=== PATIENT | female | born 1965 | race Caucasian/White ===

== ENCOUNTER → 2017-01-03 | Outpatient (CLI) | payer OTHER ==
[~2017-01-03] MED LIST: ACET65TA OR; ACTO30TA OR; ALLE25CA OR; AMOXICILLIN OR; ASPI325T PO; AVEL1TAB3 PO; CLARITIN D OR; CYMB1CAP5 PO; FIBE500T5 PO; GLIM2TAB PO; IBUPOTC PO; INSULANT SC; IPRASOL4 NEB; LANTUS SC; LEVA500T OR; LEVO137T2 PO; LEVO500T3 PO; LISI-538 PO; METF-415 PO; METFORMIN; NASONEX; NEXIUM OR; NICO21PAT TD; PRED20TA PO; [UNRECOGNIZED DRUG - OTHER]
--- NOTE | 2017-01-03 14:19 | REPMRS ---
Patient History The patient states she has not had a clinical breast exam in over a year. No known family history of cancer. Digital Mammo Screening Bilat: January 03, 2017 - Exam #: [id number] Bilateral CC and MLO view(s) were taken. Technologist: Natalie Flores, Technologist Prior study comparison: July 23, 2008, bilateral screening mammogram, performed at [facility]. FINDINGS: There are scattered fibroglandular densities. There has been no change in the appearance of the mammogram from the prior studies. There is a mild amount of residual fibroglandular tissue which is fairly symmetric. There is no interval development of dominant mass, architectural distortion, or clustered microcalcification suggestive of malignancy. ASSESSMENT: BI-RADS/ACR category 1 mammogram. Negative. Recommendation Routine screening mammogram in 1 year (for women over age 40). This mammogram was interpreted with the aid of an FDA-approved computer-aided dectection system. Electronically Signed By: Berlin Gutierrez MD 01/03/17 [id number]
--- NOTE | 2017-01-04 00:32 | REP ---
Clinical: Pelvic pain. Technique: Transabdominal pelvic ultrasound followed by transvaginal examination for better evaluation of the endometrium and adnexa with color Doppler evaluation. Findings: The patient is noted to be status post hysterectomy and left oophorectomy. No pelvic fluid or mass lesion identified. Bladder is normal and currently measures 10.2 x 9.7 x 8.1 cm. Right ovary is normal and measures 2.8 x 1.3 x 1.4 cm; RI 0.42. No pelvic fluid or adnexal mass lesion. Impression: Normal pelvic ultrasound. Evidence for prior left oophorectomy and hysterectomy. Signed by Christian Nogueira MD 01/04/2017 12:23 A
== END ==
LOC: M RAD 12:21
PROVIDERS: ATTEND Specialist
DX: R10.2 Pelvic and perineal pain (principal); Z12.39 Encounter for other screening for malignant neoplasm of breast

== ENCOUNTER → 2017-11-17 | Outpatient (CLI) | payer OTHER | LOC: M ADAMS 11:18 | DX: R06.02 Shortness of breath (principal); J20.9 Acute bronchitis, unspecified | CPT/HCPCS: 71046 ==

== ENCOUNTER 2017-11-18 15:25 | Inpatient (IN) | payer OTHER ==
[2017-11-18 16:01] LABS: BASO % 0.1 % (0.0-1.0); HEMATOCRIT 49.9 % (36.0-47.0); HEMOGLOBIN 16.6 g/dl (12.0-15.5); IMMATURE GRANULOCYTE % 0.4 % (0-3.0); LYMPH % 9.7 % (24.0-44.0); MEAN CORPUSCULAR HEMOGLOBIN 29.6 pg (27.0-33.0); MEAN CORPUSCULAR HGB CONC 33.3 g/dl (32.0-36.5); MEAN CORPUSCULAR VOLUME 89.1 fl (80.0-96.0); MONO # 0.4 10^3/uL (0.0-0.8); MONO % 4.1 % (0.0-5.0); NEUTROPHILS # 8.9 10^3/uL (1.8-7.7); NEUTROPHILS % 85.7 % (36.0-66.0); PLATELET COUNT, AUTOMATED 255 10^3/uL (150-450); RED CELL DISTRIBUTION WIDTH 13.3 % (11.5-14.5); WHITE BLOOD COUNT 10.4 10^3/uL (4.0-10.0)
[2017-11-18 16:12] LABS: INR 0.88
[2017-11-18 16:29] LABS: ALBUMIN 3.8 GM/DL (3.2-5.2); ALKALINE PHOSPHATASE 64 U/L (45-117); ALT/SGPT 21 U/L (12-78); ANION GAP 9 MEQ/L (8-16); AST/SGOT 11 U/L (7-37); BILIRUBIN,DIRECT 0.1 MG/DL (0.0-0.2); BILIRUBIN,TOTAL 0.3 MG/DL (0.2-1.0); BLOOD UREA NITROGEN 17 MG/DL (7-18); CALCIUM LEVEL 8.9 MG/DL (8.5-10.1); CARBON DIOXIDE LEVEL 28 MEQ/L (21-32); CHLORIDE LEVEL 101 MEQ/L (98-107); CPK CREATINE PHOSPHOKINASE 47 U/L (26-192); CREATININE FOR GFR 0.68 MG/DL (0.55-1.30); GLOMERULAR FILTRATION RATE > 60.0 (>51); GLUCOSE, FASTING 269 MG/DL (70-100); LIPASE 115 U/L (73-393); POTASSIUM SERUM 4.5 MEQ/L (3.5-5.1); SODIUM LEVEL 138 MEQ/L (136-145); TOTAL PROTEIN 7.6 GM/DL (6.4-8.2); TROPONIN I < 0.02 NG/ML (< 0.10)
[2017-11-18 16:35] LABS: MB/CK RELATIVE INDEX 2.12 (< OR =4)
[2017-11-18 16:42] LABS: ABG BASE EXCESS 1.6 (-2.0-2.0); ABG HCO3 27.4 MEQ/L (22.0-26.0); ABG O2 SATURATION 92.9 % (95.0-99.0); ABG PARTIAL PRESSURE CO2 46.7 mmHg (35.0-45.0); ABG PARTIAL PRESSURE O2 65.6 mmHg (75.0-100.0); ABG STANDARD HCO3 25.7 MEQ/L (22.0-26.0); ABG TOTAL CO2 28.8 MEQ/L (22.0-29.0); ABG pH (ARTERIAL) 7.386 UNITS (7.350-7.450)
[2017-11-18] MEDS: IPRATROPIUM 0.5MG/ALBUTEROL 2.5MG INH SOL UD 3ML (DUONEB)(J7620) NEB ×3 (17:06)
[2017-11-18] MEDS: MOXIFLOXACIN HCL 400 MG in APPROPRIATE DILUENT 1 EA IV (18:01)
[2017-11-18] MEDS ORDERED: ISOVUE-370 76% 100ML VIAL (Q9967) As Ordered (19:02)
[2017-11-18] MEDS ORDERED: GLUCAGON FOR INJ 1 MG VIAL (J1610) SC (23:00)
[2017-11-18] MEDS ORDERED: DEXTROSE 50% 50 ML SYRINGE IV (23:00)
[2017-11-18] MEDS ORDERED: GLUCOSE 4 GM CHEW TABLET PO (23:00)
[2017-11-18] MEDS: HumaLOG INSULIN (NovoLOG) PER UNIT SC (23:37)
[2017-11-18] MEDS: methylPREDNISolone INJ 125 MG/2 ML VIAL (J2930) IV (23:49)
[2017-11-18] MEDS: NS 1,000 ML IV (23:49)
[2017-11-19 00:11] LABS: CK-MB VALUE MASS < 1.0 NG/ML (<3.6); CPK CREATINE PHOSPHOKINASE 41 U/L (26-192); MB/CK RELATIVE INDEX 2.43 (< OR =4); TROPONIN I < 0.02 NG/ML (< 0.10)
[2017-11-19 00:18] LABS: BEDSIDE GLUCOSE 190 MG/DL (70-105)
[2017-11-19] MEDS: HEPARIN SOD (PORCINE) 5000 UNITS/ML VIAL SC ×3 (05:23→20:32)
[2017-11-19] MEDS: methylPREDNISolone INJ 125 MG/2 ML VIAL (J2930) IV ×3 (05:23→17:46)
[2017-11-19 07:00] LABS: BASO % 0.1 % (0.0-1.0); HEMATOCRIT 47.6 % (36.0-47.0); IMMATURE GRANULOCYTE % 0.4 % (0-3.0); LYMPH # 0.6 10^3/uL (1.5-4.5); LYMPH % 8.2 % (24.0-44.0); MEAN CORPUSCULAR HEMOGLOBIN 30.4 pg (27.0-33.0); MEAN CORPUSCULAR HGB CONC 33.6 g/dl (32.0-36.5); MEAN CORPUSCULAR VOLUME 90.5 fl (80.0-96.0); MONO # 0.1 10^3/uL (0.0-0.8); MONO % 0.8 % (0.0-5.0); NEUTROPHILS # 6.7 10^3/uL (1.8-7.7); NEUTROPHILS % 90.5 % (36.0-66.0); PLATELET COUNT, AUTOMATED 242 10^3/uL (150-450); RED BLOOD COUNT 5.26 10^6/uL (4.00-5.40); RED CELL DISTRIBUTION WIDTH 13.4 % (11.5-14.5); WHITE BLOOD COUNT 7.4 10^3/uL (4.0-10.0)
[2017-11-19 07:24] LABS: CK-MB VALUE MASS < 1.0 NG/ML (<3.6); CPK CREATINE PHOSPHOKINASE 51 U/L (26-192); MB/CK RELATIVE INDEX 1.96 (< OR =4); TROPONIN I < 0.02 NG/ML (< 0.10)
[2017-11-19 07:26] LABS: BLOOD UREA NITROGEN 17 MG/DL (7-18); GLUCOSE, FASTING 247 MG/DL (70-100)
[2017-11-19 07:27] LABS: ALBUMIN 3.4 GM/DL (3.2-5.2); ALBUMIN/GLOBULIN RATIO 0.94 (1.00-1.93); ALKALINE PHOSPHATASE 60 U/L (45-117); ALT/SGPT 19 U/L (12-78); ANION GAP 6 MEQ/L (8-16); AST/SGOT 10 U/L (7-37); BILIRUBIN,TOTAL 0.3 MG/DL (0.2-1.0); CALCIUM LEVEL 8.7 MG/DL (8.5-10.1); CARBON DIOXIDE LEVEL 30 MEQ/L (21-32); CHLORIDE LEVEL 104 MEQ/L (98-107); GLOMERULAR FILTRATION RATE > 60.0 (>51); SODIUM LEVEL 140 MEQ/L (136-145)
[2017-11-19 07:29] LABS: POTASSIUM SERUM 5.4 MEQ/L (3.5-5.1)
[2017-11-19] MEDS: SOD POLYSTYRENE SULFONATE SUSP 15 GM/60 ML UD PO (08:20)
[2017-11-19] MEDS: HumaLOG INSULIN (NovoLOG) PER UNIT SC ×4 (08:20→20:28)
[2017-11-19] MEDS: LEVEMIR (INSULIN DETEMIR) 1 UNITS/0.01ML SC (08:21)
[2017-11-19] MEDS: NICOTINE 21MG/24HR 1 EA TRANSDERMAL TD (08:21)
[2017-11-19] MEDS: IPRATROPIUM 0.5MG/ALBUTEROL 2.5MG INH SOL UD 3ML (DUONEB)(J7620) NEB ×4 (08:30→21:27)
[2017-11-19] MEDS: BUDESONIDE 0.5 MG/2 ML INHALATION SUSPENSION INH ×2 (08:30→21:27)
[2017-11-19] MEDS ORDERED: cefTRIAXone SOD 1 GM in D5W MINI-BAG PLUS 50 ML IV (09:00)
[2017-11-19] MEDS: AZITHROMYCIN INJ 500 MG, VIAL MATE ADAPTER 1 EACH in D5W 250 ML IV (10:10)
[2017-11-19 11:37] LABS: BEDSIDE GLUCOSE 356 MG/DL (70-105)
[2017-11-19 15:59] LABS: CK-MB VALUE MASS 1.2 NG/ML (<3.6); CPK CREATINE PHOSPHOKINASE 60 U/L (26-192); TROPONIN I < 0.02 NG/ML (< 0.10)
[2017-11-19 16:36] LABS: BEDSIDE GLUCOSE 195 MG/DL (70-105)
[2017-11-19 20:14] LABS: BEDSIDE GLUCOSE 230 MG/DL (70-105)
[2017-11-20] MEDS: methylPREDNISolone INJ 125 MG/2 ML VIAL (J2930) IV (01:33)
[2017-11-20] MEDS ORDERED: methylPREDNISolone INJ 125 MG/2 ML VIAL (J2930) IV (02:00)
[2017-11-20] MEDS: HEPARIN SOD (PORCINE) 5000 UNITS/ML VIAL SC ×3 (05:37→20:18)
[2017-11-20 06:04] LABS: BEDSIDE GLUCOSE 172 MG/DL (70-105)
[2017-11-20 07:31] LABS: BASO % 0.2 % (0.0-1.0); HEMATOCRIT 47.4 % (36.0-47.0); HEMOGLOBIN 15.8 g/dl (12.0-15.5); IMMATURE GRANULOCYTE % 0.4 % (0-3.0); LYMPH # 0.9 10^3/uL (1.5-4.5); LYMPH % 9.6 % (24.0-44.0); MEAN CORPUSCULAR HGB CONC 33.3 g/dl (32.0-36.5); MEAN CORPUSCULAR VOLUME 89.9 fl (80.0-96.0); MONO # 0.4 10^3/uL (0.0-0.8); MONO % 4.4 % (0.0-5.0); NEUTROPHILS # 8.3 10^3/uL (1.8-7.7); NEUTROPHILS % 85.4 % (36.0-66.0); PLATELET COUNT, AUTOMATED 253 10^3/uL (150-450); RED BLOOD COUNT 5.27 10^6/uL (4.00-5.40); RED CELL DISTRIBUTION WIDTH 13.4 % (11.5-14.5); WHITE BLOOD COUNT 9.8 10^3/uL (4.0-10.0)
[2017-11-20] MEDS: BUDESONIDE 0.5 MG/2 ML INHALATION SUSPENSION INH ×2 (07:35→20:24)
[2017-11-20] MEDS: IPRATROPIUM 0.5MG/ALBUTEROL 2.5MG INH SOL UD 3ML (DUONEB)(J7620) NEB ×4 (07:35→20:24)
[2017-11-20 07:56] LABS: ALBUMIN 3.4 GM/DL (3.2-5.2); ALBUMIN/GLOBULIN RATIO 0.87 (1.00-1.93); ALKALINE PHOSPHATASE 53 U/L (45-117); ALT/SGPT 17 U/L (12-78); ANION GAP 4 MEQ/L (8-16); AST/SGOT 11 U/L (7-37); BILIRUBIN,TOTAL 0.3 MG/DL (0.2-1.0); BLOOD UREA NITROGEN 21 MG/DL (7-18); CALCIUM LEVEL 8.7 MG/DL (8.5-10.1); CARBON DIOXIDE LEVEL 32 MEQ/L (21-32); CHLORIDE LEVEL 102 MEQ/L (98-107); CREATININE FOR GFR 0.57 MG/DL (0.55-1.30); GLOMERULAR FILTRATION RATE > 60.0 (>51); GLUCOSE, FASTING 176 MG/DL (70-100); MAGNESIUM LEVEL 2.4 MG/DL (1.8-2.4); POTASSIUM SERUM 4.4 MEQ/L (3.5-5.1); SODIUM LEVEL 138 MEQ/L (136-145); TOTAL PROTEIN 7.3 GM/DL (6.4-8.2)
[2017-11-20] MEDS: HumaLOG INSULIN (NovoLOG) PER UNIT SC ×4 (08:09→20:18)
[2017-11-20] MEDS: LEVEMIR (INSULIN DETEMIR) 1 UNITS/0.01ML SC (08:09)
[2017-11-20] MEDS: NICOTINE 21MG/24HR 1 EA TRANSDERMAL TD (08:09)
[2017-11-20] MEDS: AZITHROMYCIN INJ 500 MG, VIAL MATE ADAPTER 1 EACH in D5W 250 ML IV (09:54)
[2017-11-20 11:38] LABS: BEDSIDE GLUCOSE 276 MG/DL (70-105)
[2017-11-20] MEDS: PREMARIN 0.9 MG PO (12:22)
[2017-11-20] MEDS: methylPREDNISolone INJ 40 MG/1 ML VIAL (J2920) IV (14:31)
[2017-11-20 16:37] LABS: BEDSIDE GLUCOSE 61 MG/DL (70-105)
[2017-11-20 20:04] LABS: BEDSIDE GLUCOSE 259 MG/DL (70-105)
[2017-11-20] MEDS: ACETAMINOPHEN TAB 650MG DOSE (2X325MG) PO (20:18)
[2017-11-21] MEDS: methylPREDNISolone INJ 40 MG/1 ML VIAL (J2920) IV (01:43)
[2017-11-21] MEDS: HEPARIN SOD (PORCINE) 5000 UNITS/ML VIAL SC (05:28)
[2017-11-21 06:22] LABS: BASO % 0.3 % (0.0-1.0); HEMATOCRIT 46.5 % (36.0-47.0); HEMOGLOBIN 15.2 g/dl (12.0-15.5); IMMATURE GRANULOCYTE % 0.5 % (0-3.0); LYMPH # 1.3 10^3/uL (1.5-4.5); LYMPH % 17.4 % (24.0-44.0); MEAN CORPUSCULAR HEMOGLOBIN 29.8 pg (27.0-33.0); MEAN CORPUSCULAR HGB CONC 32.7 g/dl (32.0-36.5); MEAN CORPUSCULAR VOLUME 91.2 fl (80.0-96.0); MONO # 0.4 10^3/uL (0.0-0.8); NEUTROPHILS # 5.7 10^3/uL (1.8-7.7); NEUTROPHILS % 76.8 % (36.0-66.0); PLATELET COUNT, AUTOMATED 248 10^3/uL (150-450); RED CELL DISTRIBUTION WIDTH 13.3 % (11.5-14.5); WHITE BLOOD COUNT 7.5 10^3/uL (4.0-10.0)
[2017-11-21 06:54] LABS: ALBUMIN 3.1 GM/DL (3.2-5.2); ALBUMIN/GLOBULIN RATIO 0.84 (1.00-1.93); ALKALINE PHOSPHATASE 47 U/L (45-117); ALT/SGPT 17 U/L (12-78); ANION GAP 4 MEQ/L (8-16); AST/SGOT 13 U/L (7-37); BILIRUBIN,TOTAL 0.3 MG/DL (0.2-1.0); BLOOD UREA NITROGEN 18 MG/DL (7-18); CALCIUM LEVEL 8.3 MG/DL (8.5-10.1); CARBON DIOXIDE LEVEL 35 MEQ/L (21-32); CHLORIDE LEVEL 103 MEQ/L (98-107); CREATININE FOR GFR 0.54 MG/DL (0.55-1.30); GLOMERULAR FILTRATION RATE > 60.0 (>51); GLUCOSE, FASTING 116 MG/DL (70-100); POTASSIUM SERUM 4.5 MEQ/L (3.5-5.1); SODIUM LEVEL 142 MEQ/L (136-145); TOTAL PROTEIN 6.8 GM/DL (6.4-8.2)
[2017-11-21] MEDS: IPRATROPIUM 0.5MG/ALBUTEROL 2.5MG INH SOL UD 3ML (DUONEB)(J7620) NEB (07:50)
[2017-11-21] MEDS: BUDESONIDE 0.5 MG/2 ML INHALATION SUSPENSION INH (07:50)
[2017-11-21] MEDS: LEVEMIR (INSULIN DETEMIR) 1 UNITS/0.01ML SC (08:16)
[2017-11-21] MEDS: PREMARIN 0.9 MG PO (08:16)
[2017-11-21] MEDS: HumaLOG INSULIN (NovoLOG) PER UNIT SC (08:16)
[2017-11-21] MEDS: NICOTINE 21MG/24HR 1 EA TRANSDERMAL TD (08:18)
[2017-11-21] MEDS: AZITHROMYCIN INJ 500 MG, VIAL MATE ADAPTER 1 EACH in D5W 250 ML IV (09:31)
== END 2017-11-21 11:40 | disposition home or self-care (01) | DRG 140 ==
LOC: M ED 15:25 → M ED INP 22:15 → M MSPAV 23:39
DX: J44.1 Chronic obstructive pulmonary disease with (acute) exacerbation (principal); E11.40 Type 2 diabetes mellitus with diabetic neuropathy, unspecified; E87.5 Hyperkalemia; D75.1 Secondary polycythemia; F17.210 Nicotine dependence, cigarettes, uncomplicated; K58.9 Irritable bowel syndrome, unspecified; I10 Essential (primary) hypertension; E86.0 Dehydration; E03.9 Hypothyroidism, unspecified; M79.7 Fibromyalgia; Z88.5 Allergy status to narcotic agent; Z88.8 Allergy status to other drugs, medicaments and biological substances; Z79.82 Long term (current) use of aspirin; R09.02 Hypoxemia; Z79.4 Long term (current) use of insulin; Z79.899 Other long term (current) drug therapy; Z91.14 Patient's other noncompliance with medication regimen

== ENCOUNTER 2017-11-22 17:23 | Emergency (ER) | payer OTHER ==
[2017-11-22 18:06] LABS: BASO % 0.2 % (0.0-1.0); EOS % 0.1 % (0.0-3.0); HEMATOCRIT 51.1 % (36.0-47.0); HEMOGLOBIN 17.2 g/dl (12.0-15.5); IMMATURE GRANULOCYTE % 0.5 % (0-3.0); LYMPH % 8.6 % (24.0-44.0); MEAN CORPUSCULAR HEMOGLOBIN 30.2 pg (27.0-33.0); MEAN CORPUSCULAR HGB CONC 33.7 g/dl (32.0-36.5); MEAN CORPUSCULAR VOLUME 89.6 fl (80.0-96.0); MONO # 0.5 10^3/uL (0.0-0.8); MONO % 4.2 % (0.0-5.0); NEUTROPHILS # 9.7 10^3/uL (1.8-7.7); NEUTROPHILS % 86.4 % (36.0-66.0); PLATELET COUNT, AUTOMATED 254 10^3/uL (150-450); RED CELL DISTRIBUTION WIDTH 13.1 % (11.5-14.5); WHITE BLOOD COUNT 11.2 10^3/uL (4.0-10.0)
[2017-11-22 18:26] LABS: ALBUMIN 3.3 GM/DL (3.2-5.2); ALBUMIN/GLOBULIN RATIO 0.87 (1.00-1.93); ALKALINE PHOSPHATASE 55 U/L (45-117); ALT/SGPT 23 U/L (12-78); ANION GAP 2 MEQ/L (8-16); AST/SGOT 17 U/L (7-37); BILIRUBIN,DIRECT 0.1 MG/DL (0.0-0.2); BILIRUBIN,TOTAL 0.5 MG/DL (0.2-1.0); BLOOD UREA NITROGEN 17 MG/DL (7-18); CARBON DIOXIDE LEVEL 36 MEQ/L (21-32); CHLORIDE LEVEL 99 MEQ/L (98-107); CREATININE FOR GFR 0.76 MG/DL (0.55-1.30); GLOMERULAR FILTRATION RATE > 60.0 (>51); GLUCOSE, FASTING 278 MG/DL (70-100); LIPASE 98 U/L (73-393); POTASSIUM SERUM 4.7 MEQ/L (3.5-5.1); SODIUM LEVEL 137 MEQ/L (136-145); TOTAL PROTEIN 7.1 GM/DL (6.4-8.2)
[2017-11-22] MEDS: NS 1,000 ML IV (18:42)
[2017-11-22] MEDS ORDERED: ONDANSETRON 4 MG TAB (S0181) As Ordered (19:59)
[2017-11-22] MEDS: ONDANSETRON 4 MG ORAL DISINTEGRATING TAB (Q0162 PER 1MG) PO (20:09)
== END 2017-11-22 20:45 | disposition home or self-care (01) ==
LOC: M ED 17:23
DX: K52.9 Noninfective gastroenteritis and colitis, unspecified (principal); E11.9 Type 2 diabetes mellitus without complications; I10 Essential (primary) hypertension; I25.10 Atherosclerotic heart disease of native coronary artery without angina pectoris; Z79.899 Other long term (current) drug therapy; Z79.82 Long term (current) use of aspirin; Z88.5 Allergy status to narcotic agent; Z88.8 Allergy status to other drugs, medicaments and biological substances; Z87.891 Personal history of nicotine dependence
CPT/HCPCS: Q0162

== ENCOUNTER → 2018-01-25 | Outpatient (CLI) | payer OTHER ==
[~2018-01-25] MED LIST changes: -ACET65TA OR; -ACTO30TA OR; -ALLE25CA OR; -AMOXICILLIN OR; -ASPI325T PO; -AVEL1TAB3 PO; -CLARITIN D OR; -CYMB1CAP5 PO; -FIBE500T5 PO; -GLIM2TAB PO; -IBUPOTC PO; -INSULANT SC; -IPRASOL4 NEB; -LANTUS SC; -LEVA500T OR; -LEVO137T2 PO; -LEVO500T3 PO; -LISI-538 PO; -METF-415 PO; -METFORMIN; +METHACHOLINE KIT (J7674) INH; -NASONEX; -NEXIUM OR; -NICO21PAT TD; -PRED20TA PO; -[UNRECOGNIZED DRUG - OTHER]
== END ==
LOC: M CARPUL 06:43
DX: J44.9 Chronic obstructive pulmonary disease, unspecified (principal); E87.2 Acidosis
CPT/HCPCS: 94060

== ENCOUNTER → 2018-04-07 | Outpatient (CLI) | payer OTHER ==
[2018-04-07 12:46] LABS: BASO % 0.6 % (0.0-1.0); EOS # 0.1 10^3/uL (0.0-0.50); EOS % 1.6 % (0.0-3.0); HEMATOCRIT 47.4 % (36.0-47.0); HEMOGLOBIN 15.8 g/dl (12.0-15.5); IMMATURE GRANULOCYTE % 0.2 % (0-3.0); LYMPH % 31.1 % (24.0-44.0); MEAN CORPUSCULAR HEMOGLOBIN 30.4 pg (27.0-33.0); MEAN CORPUSCULAR HGB CONC 33.3 g/dl (32.0-36.5); MEAN CORPUSCULAR VOLUME 91.2 fl (80.0-96.0); MONO # 0.5 10^3/uL (0.0-0.8); MONO % 7.7 % (0.0-5.0); NEUTROPHILS # 3.8 10^3/uL (1.8-7.7); NEUTROPHILS % 58.8 % (36.0-66.0); PLATELET COUNT, AUTOMATED 256 10^3/uL (150-450); WHITE BLOOD COUNT 6.4 10^3/uL (4.0-10.0)
== END ==
LOC: M ADAMS 11:18
DX: J20.9 Acute bronchitis, unspecified (principal)
CPT/HCPCS: 85025

== ENCOUNTER → 2018-04-25 | Outpatient (REF) | payer OTHER ==
[2018-04-25 14:04] LABS: ESTIMATED AVERAGE GLUCOSE 214 MG/DL (60-110); HEMOGLOBIN A1c 9.1 %
[2018-04-25 14:16] LABS: CREATININE, URINE 35.8 MG/DL; MALB URINE SIEMENS 6.9 MG/L; MAU/CREAT RATIO 19.3 MCG/MG (0.0-30.0)
[2018-04-25 14:30] LABS: ALBUMIN 3.2 GM/DL (3.2-5.2); ALBUMIN/GLOBULIN RATIO 0.89 (1.00-1.93); ALKALINE PHOSPHATASE 59 U/L (45-117); ALT/SGPT 24 U/L (12-78); ANION GAP 7 MEQ/L (8-16); AST/SGOT 14 U/L (7-37); BILIRUBIN,TOTAL 0.3 MG/DL (0.2-1.0); BLOOD UREA NITROGEN 14 MG/DL (7-18); CALCIUM LEVEL 8.6 MG/DL (8.5-10.1); CARBON DIOXIDE LEVEL 31 MEQ/L (21-32); CHLORIDE LEVEL 99 MEQ/L (98-107); CHOLESTEROL LEVEL 199 MG/DL (<200); CHOLESTEROL RISK RATIO 1.761 (<5); CREATININE FOR GFR 0.76 MG/DL (0.55-1.30); GLOMERULAR FILTRATION RATE > 60.0 (>51); GLUCOSE, FASTING 240 MG/DL (70-100); HDL CHOLESTEROL 113 MG/DL (>40); LDL CHOLESTEROL 64 MG/DL (<100); NON-HDL-C 86 MG/DL; SODIUM LEVEL 137 MEQ/L (136-145); TOTAL PROTEIN 6.8 GM/DL (6.4-8.2); TRIGLYCERIDES LEVEL 111 MG/DL (<150)
== END ==
LOC: M SFHCPLAZ 10:57
DX: E11.9 Type 2 diabetes mellitus without complications (principal); E03.9 Hypothyroidism, unspecified
CPT/HCPCS: 84443

== ENCOUNTER → 2018-05-02 | Outpatient (CLI) | payer OTHER | LOC: M WHC 12:14 | DX: Z12.31 Encounter for screening mammogram for malignant neoplasm of breast (principal); N60.31 Fibrosclerosis of right breast; N60.32 Fibrosclerosis of left breast | CPT/HCPCS: 77067 ==

== ENCOUNTER → 2018-10-14 | Outpatient (CLI) | payer OTHER ==
[~2018-10-14] MED LIST changes: +ACET65TA OR; +ACTO30TA OR; +ALBU83IN INH; +ALLE25CA OR; +AMOXICILLIN OR; +ASPI-1 PO; +ASPI-222 PO; +AVEL1TAB3 PO; +CLARITIN D OR; +CYMB1CAP5 PO; +DOXY100C PO; +FIBE500T4 PO; +GLIM2TAB PO; +IBUPOTC PO; +INSULANT SC; +INVO300T PO; +IPRA0.00 NEB; +LANTUS SC; +LEVA500T OR; +LEVO137T2 PO; +LEVO500T3 PO; +LISI-538 PO; +METF-415 PO; +METFORMIN; -METHACHOLINE KIT (J7674) INH; +NASONEX; +NEXIUM OR; +NICO21DI3 TD; +NICO21PAT TD; +PRED10TA2 PO; +PRED20TA PO; +PREM0.9T PO; +PROC1AER16 PR; +TOUJ1.2I SC; +VENTAER INH; +ZOFR4TAB14 PO; +[UNRECOGNIZED DRUG - OTHER]
[2018-10-14 17:59] LABS: BLOOD UREA NITROGEN 12 MG/DL (7-18); CALCIUM LEVEL 8.8 MG/DL (8.5-10.1); CARBON DIOXIDE LEVEL 34 MEQ/L (21-32); CHLORIDE LEVEL 101 MEQ/L (98-107); GLOMERULAR FILTRATION RATE > 60.0 (>51); GLUCOSE, FASTING 172 MG/DL (70-100); POTASSIUM SERUM 4.4 MEQ/L (3.5-5.1); SODIUM LEVEL 139 MEQ/L (136-145)
== END ==
LOC: M ADAMS 09:19
PROVIDERS: ATTEND Nurse Practitioner Family
DX: E11.65 Type 2 diabetes mellitus with hyperglycemia (principal)

== ENCOUNTER → 2018-10-20 | Outpatient (REF) | payer OTHER ==
[2018-10-20 14:51] LABS: MALB URINE SIEMENS 7.3 MG/L; MAU/CREAT RATIO 19.2 MCG/MG (0.0-30.0)
== END ==
LOC: M LABDRAW1 11:36
PROVIDERS: ATTEND Nurse Practitioner Family
DX: E11.65 Type 2 diabetes mellitus with hyperglycemia (principal)

== ENCOUNTER → 2019-05-19 | Outpatient (CLI) | payer OTHER ==
[~2019-05-19] MED LIST changes: -ASPI-222 PO; +ASPI-527 PO; -GLIM2TAB PO; +GLIM2TAB2 PO
[2019-05-19 18:01] LABS: BLOOD UREA NITROGEN 17 MG/DL (7-18); CALCIUM LEVEL 8.8 MG/DL (8.5-10.1); CARBON DIOXIDE LEVEL 34 MEQ/L (21-32); CHLORIDE LEVEL 103 MEQ/L (98-107); CHOLESTEROL LEVEL 179 MG/DL (<200); CHOLESTEROL RISK RATIO 1.467 (<5); GLOMERULAR FILTRATION RATE > 60.0 (>51); GLUCOSE, FASTING 109 MG/DL (70-100); HDL CHOLESTEROL 122 MG/DL (>40); LDL CHOLESTEROL 46 MG/DL (<100); NON-HDL-C 57 MG/DL; POTASSIUM SERUM 4.7 MEQ/L (3.5-5.1); SODIUM LEVEL 141 MEQ/L (136-145); TRIGLYCERIDES LEVEL 53 MG/DL (<150)
== END ==
LOC: M LABDRWAD 08:11
PROVIDERS: ATTEND Nurse Practitioner Family
DX: E11.65 Type 2 diabetes mellitus with hyperglycemia (principal)

== ENCOUNTER → 2019-08-07 | Outpatient (REF) | payer OTHER ==
[~2019-08-07] MED LIST changes: -GLIM2TAB2 PO; +GLIM2TAB4 PO
[2019-08-07 17:07] LABS: HEMATOCRIT 52.5 % (36.0-47.0); HEMOGLOBIN 16.8 g/dl (12.0-15.5); MEAN CORPUSCULAR HEMOGLOBIN 28.6 pg (27.0-33.0); MEAN CORPUSCULAR VOLUME 89.3 fl (80.0-96.0); PLATELET COUNT, AUTOMATED 325 10^3/uL (150-450); RED BLOOD COUNT 5.88 10^6/uL (4.00-5.40); WHITE BLOOD COUNT 9.4 10^3/uL (4.0-10.0)
[2019-08-07 18:05] LABS: ALBUMIN 3.8 GM/DL (3.2-5.2); ALT/SGPT 21 U/L (12-78); BILIRUBIN,TOTAL 0.3 MG/DL (0.2-1.0); BLOOD UREA NITROGEN 13 MG/DL (7-18); CALCIUM LEVEL 9.2 MG/DL (8.5-10.1); CARBON DIOXIDE LEVEL 34 MEQ/L (21-32); CHLORIDE LEVEL 101 MEQ/L (98-107); CREATININE FOR GFR 0.71 MG/DL (0.55-1.30); FREE T4 0.96 NG/DL (0.76-1.46); GLOMERULAR FILTRATION RATE > 60.0 (>51); GLUCOSE, FASTING 156 MG/DL (70-100); POTASSIUM SERUM 4.6 MEQ/L (3.5-5.1); SODIUM LEVEL 140 MEQ/L (136-145); TOTAL PROTEIN 7.8 GM/DL (6.4-8.2)
[2019-08-08 10:38] LABS: FOLATE 22.3 NG/ML; VITAMIN B12 LEVEL 336 PG/ML
== END ==
LOC: M SFHCADAM 14:16
PROVIDERS: ATTEND Physician Assistant
DX: E03.9 Hypothyroidism, unspecified (principal); J44.9 Chronic obstructive pulmonary disease, unspecified; F32.2 Major depressive disorder, single episode, severe without psychotic features; R41.3 Other amnesia; E11.40 Type 2 diabetes mellitus with diabetic neuropathy, unspecified

== ENCOUNTER → 2019-08-30 | Outpatient (REF) | payer OTHER ==
[2019-08-30 16:33] LABS: CREATININE, URINE 67.6 MG/DL; MAU/CREAT RATIO 20.7 MCG/MG (0.0-30.0)
== END ==
LOC: M LAB REF 15:26
PROVIDERS: ATTEND Nurse Practitioner Family
DX: E11.65 Type 2 diabetes mellitus with hyperglycemia (principal)

== ENCOUNTER → 2019-09-01 | Outpatient (REF) | payer OTHER ==
[2019-09-01 18:15] LABS: FREE T4 1.08 NG/DL (0.76-1.46); THYROID STIMULATING HORMONE 14.2 uIU/ML (0.358-3.740)
== END ==
LOC: M SFHCADAM 08:05
PROVIDERS: ATTEND Physician Assistant
DX: E03.9 Hypothyroidism, unspecified (principal)

== ENCOUNTER → 2019-09-01 | Outpatient (CLI) | payer OTHER | LOC: M ADAMS 13:20 | PROVIDERS: ATTEND Physician Assistant | DX: E03.9 Hypothyroidism, unspecified (principal) ==

== ENCOUNTER → 2019-12-17 | Outpatient (REF) | payer OTHER ==
[2019-12-17 14:40] LABS: BLOOD UREA NITROGEN 11 MG/DL (7-18); CALCIUM LEVEL 9.4 MG/DL (8.5-10.1); CARBON DIOXIDE LEVEL 33 MEQ/L (21-32); CHLORIDE LEVEL 101 MEQ/L (98-107); CHOLESTEROL LEVEL 187 MG/DL (<200); CHOLESTEROL RISK RATIO 2.054 (<5); CREATININE FOR GFR 0.63 MG/DL (0.55-1.30); FREE T4 1.07 NG/DL (0.76-1.46); GLOMERULAR FILTRATION RATE > 60.0 (>51); GLUCOSE, FASTING 141 MG/DL (70-100); HDL CHOLESTEROL 91 MG/DL (>40); LDL CHOLESTEROL 75 MG/DL (<100); NON-HDL-C 96 MG/DL; POTASSIUM SERUM 4.4 MEQ/L (3.5-5.1); SODIUM LEVEL 136 MEQ/L (136-145); TRIGLYCERIDES LEVEL 106 MG/DL (<150)
[2019-12-17 14:46] LABS: CREATININE, URINE 68.2 MG/DL; MALB URINE SIEMENS 7.9 MG/L; MAU/CREAT RATIO 11.5 MCG/MG (0.0-30.0)
== END ==
LOC: M SFHCADAM 08:59
PROVIDERS: ATTEND Physician Assistant
DX: E03.9 Hypothyroidism, unspecified (principal); E11.40 Type 2 diabetes mellitus with diabetic neuropathy, unspecified; I10 Essential (primary) hypertension

== ENCOUNTER → 2020-05-05 | Outpatient (REF) | payer OTHER ==
[2020-05-05 14:42] LABS: BLOOD UREA NITROGEN 14 MG/DL (7-18); CALCIUM LEVEL 9.1 MG/DL (8.5-10.1); CARBON DIOXIDE LEVEL 26 MEQ/L (21-32); CHLORIDE LEVEL 101 MEQ/L (98-107); CREATININE FOR GFR 0.61 MG/DL (0.55-1.30); GLOMERULAR FILTRATION RATE > 60.0 (>51); GLUCOSE, FASTING 107 MG/DL (70-100); POTASSIUM SERUM 4.8 MEQ/L (3.5-5.1); SODIUM LEVEL 139 MEQ/L (136-145)
== END ==
LOC: M LABDRWAD 13:25
PROVIDERS: ATTEND Nurse Practitioner Family
DX: E11.65 Type 2 diabetes mellitus with hyperglycemia (principal)

== ENCOUNTER → 2020-05-05 | Outpatient (REF) | payer OTHER ==
[2020-05-05 15:04] LABS: FREE T4 1.19 NG/DL (0.76-1.46); THYROID STIMULATING HORMONE 6.43 uIU/ML (0.358-3.740)
== END ==
LOC: M SFHCADAM 09:46
PROVIDERS: ATTEND Physician Assistant
DX: E03.9 Hypothyroidism, unspecified (principal)

== ENCOUNTER → 2020-10-08 | Outpatient (REF) | payer OTHER ==
[~2020-10-08] MED LIST changes: -LISI-538 PO; +LISI20TA33 PO
[2020-10-08 18:47] LABS: APPEARANCE, URINE CLOUDY (CLEAR); BACTERIA, URINE AUTO 3+ (NEGATIVE); BILIRUBIN, URINE AUTO NEGATIVE (NEGATIVE); BLOOD, URINE BLOOD NEGATIVE (NEGATIVE); COLOR, URINE YELLOW (YELLOW); GLUCOSE, URINE (UA) AUTO 3+ mg/dL (NEGATIVE); KETONE, URINE AUTO NEGATIVE (NEGATIVE); LEUKOCYTE ESTERASE, URINE AUTO 2+ (NEGATIVE); NITRITE, URINE AUTO NEGATIVE (NEGATIVE); PROTEIN, URINE AUTO NEGATIVE (NEGATIVE); RBC, URINE AUTO 2 /HPF (0-3); SPECIFIC GRAVITY URINE AUTO 1.024 (1.002-1.035); SQUAMOUS EPITHELIAL CELL UR AU 2 /HPF (0-6); UROBILINOGEN, URINE AUTO 0.2 mg/dL (0.0-2.0); WBC, URINE AUTO 26 /HPF (0-3)
== END ==
LOC: M SFHCADAM 16:50
PROVIDERS: ATTEND Physician Assistant
DX: N30.00 Acute cystitis without hematuria (principal)

== ENCOUNTER → 2020-10-20 | Outpatient (REF) | payer OTHER ==
[2020-10-20 13:08] LABS: HEMATOCRIT 56.5 % (36.0-47.0); HEMOGLOBIN 17.7 g/dl (12.0-15.5); MEAN CORPUSCULAR HGB CONC 31.3 g/dl (32.0-36.5); MEAN CORPUSCULAR VOLUME 92.6 fl (80.0-96.0); PLATELET COUNT, AUTOMATED 303 10^3/uL (150-450); WHITE BLOOD COUNT 7.1 10^3/uL (4.0-10.0)
[2020-10-20 13:45] LABS: ALBUMIN 3.5 GM/DL (3.2-5.2); ALT/SGPT 20 U/L (12-78); BILIRUBIN,TOTAL 0.3 MG/DL (0.2-1.0); BLOOD UREA NITROGEN 12 MG/DL (7-18); CALCIUM LEVEL 9.3 MG/DL (8.5-10.1); CARBON DIOXIDE LEVEL 34 MEQ/L (21-32); CHLORIDE LEVEL 103 MEQ/L (98-107); CHOLESTEROL LEVEL 202 MG/DL (<200); CHOLESTEROL RISK RATIO 1.642 (<5); CREATININE FOR GFR 0.54 MG/DL (0.55-1.30); FREE T4 1.05 NG/DL (0.76-1.46); GLOMERULAR FILTRATION RATE > 60.0 (>51); GLUCOSE, FASTING 95 MG/DL (70-100); HDL CHOLESTEROL 123 MG/DL (>40); LDL CHOLESTEROL 69 MG/DL (<100); NON-HDL-C 79 MG/DL; POTASSIUM SERUM 4.7 MEQ/L (3.5-5.1); SODIUM LEVEL 141 MEQ/L (136-145); TOTAL 25(OH) VITAMIN D 43.8 NG/ML (30.0-100.0); TOTAL PROTEIN 7.2 GM/DL (6.4-8.2); TRIGLYCERIDES LEVEL 52 MG/DL (<150)
[2020-10-20 13:46] LABS: FOLATE 21.6 NG/ML; VITAMIN B12 LEVEL 833 PG/ML
[2020-10-20 13:48] LABS: MAU/CREAT RATIO 35.2 MCG/MG (0.0-30.0)
== END ==
LOC: M SFHCADAM 08:35
PROVIDERS: ATTEND Physician Assistant
DX: E11.65 Type 2 diabetes mellitus with hyperglycemia (principal); E03.9 Hypothyroidism, unspecified; E11.40 Type 2 diabetes mellitus with diabetic neuropathy, unspecified; I10 Essential (primary) hypertension

== ENCOUNTER → 2020-11-28 | Outpatient (CLI) | payer OTHER ==
--- NOTE | 2020-11-28 13:22 | REP ---
INDICATION: NICOTINE DEPENDENCE. COMPARISON: 11/21/2017 the latest prior a CT angio chest. TECHNIQUE: Axial noncontrast images from the thoracic inlet to the upper abdomen using low-dose lung screening technique (LDCT). As per the protocol only lung window images were sent to the read station for interpretation. FINDINGS: Is seen in the anterior segment of the right upper lobe there is a subtle 1.4 cm sized ground-glass opacity which is unchanged. Once again, there is stable fibrotic and/or subsegmental atelectatic change in the left lung base. A similar finding to a lesser degree is seen in the inferior lingula. This too is stable. No new abnormal nodules, masses, or opacities have developed. Grossly, the mediastinum and pulmonary liliana are unchanged. Grossly, the imaged upper abdomen and imaged osseous structures are unchanged. IMPRESSION: Stable lung rads category 2 low-dose screening CT examination of the lungs. According to the revised Fleischner society criteria yearly screening CT of the lungs is warranted if clinically relevant. <Electronically signed by George Macias > 11/28/20 [id number]
== END ==
LOC: M RAD 12:45
PROVIDERS: ATTEND Physician Assistant
DX: Z12.2 Encounter for screening for malignant neoplasm of respiratory organs (principal); F17.218 Nicotine dependence, cigarettes, with other nicotine-induced disorders; R91.8 Other nonspecific abnormal finding of lung field

== ENCOUNTER → 2021-02-03 | Outpatient (REF) | payer OTHER ==
[~2021-02-03] MED LIST changes: +BASA100I SC; +BENZ200C70 PO; +CEFD1CAP8 PO; +COVI30VI IM; -DOXY100C PO; +DOXY100C3 PO; +FLON1SPR NARES; +GLIP5TAB20 PO; +LEVO100T5 PO; +LISI2.5T9 PO; +MUCI1TAB16 PO
[2021-02-03 13:16] LABS: FREE T4 0.92 NG/DL (0.76-1.46); THYROID STIMULATING HORMONE 8.1 uIU/ML (0.358-3.740)
== END ==
LOC: M SFHCADAM 09:09
PROVIDERS: ATTEND Physician Assistant
DX: E03.9 Hypothyroidism, unspecified (principal)

== ENCOUNTER 2021-02-10 15:07 | Inpatient (IN) | payer OTHER ==
[~2021-02-10] VITALS: Ht 165.1 cm; Wt 74.9 kg
[2021-02-10 16:38] LABS: BASO # 0.1 10^3/uL (0.0-0.2); BASO % 0.4 % (0.0-1.0); EOS % 0.1 % (0.0-3.0); HEMATOCRIT 50.5 % (36.0-47.0); HEMOGLOBIN 16.5 g/dl (12.0-15.5); LYMPH # 1.1 10^3/uL (1.5-5.0); MEAN CORPUSCULAR HEMOGLOBIN 30.2 pg (27.0-33.0); MEAN CORPUSCULAR HGB CONC 32.7 g/dl (32.0-36.5); MEAN CORPUSCULAR VOLUME 92.5 fl (80.0-96.0); MONO # 1.9 10^3/uL (0.0-0.8); NEUTROPHILS # 13.1 10^3/uL (1.5-8.5); NEUTROPHILS % 80.7 % (36.0-66.0); PLATELET COUNT, AUTOMATED 309 10^3/uL (150-450); RED BLOOD COUNT 5.46 10^6/uL (4.00-5.40)
[2021-02-10 17:01] LABS: MONO % 11.4 % (2.0-8.0); WHITE BLOOD COUNT 16.2 10^3/uL (4.0-10.0)
[2021-02-10] MEDS ORDERED: methylPREDNISolone 125MG 2ML VIAL IV ONE (17:05)
--- NOTE | 2021-02-10 17:08 | REP ---
INDICATION: DYSPNEA/COUGH. COMPARISON: 04/07/2018 as well as other prior exams. TECHNIQUE: Single portable AP view of the chest was performed. FINDINGS: There are bibasilar interstitial infiltrates. I also suspect peripheral alveolar infiltrate in the left base. The heart is not enlarged. The mediastinal silhouette is unremarkable. IMPRESSION: Bibasilar interstitial infiltrates. Peripheral left base alveolar infiltrate. <Electronically signed by Berlin Gutierrez > 02/10/21 [id number]
[2021-02-10 17:11] LABS: ALBUMIN 3.1 GM/DL (3.2-5.2); ALT/SGPT 21 U/L (12-78); BILIRUBIN,DIRECT 0.2 MG/DL (0.0-0.2); BILIRUBIN,TOTAL 0.4 MG/DL (0.2-1.0); BLOOD UREA NITROGEN 12 MG/DL (7-18); CALCIUM LEVEL 8.6 MG/DL (8.5-10.1); CARBON DIOXIDE LEVEL 28 MEQ/L (21-32); CHLORIDE LEVEL 100 MEQ/L (98-107); CK-MB VALUE MASS < 1.0 NG/ML (<3.6); CPK CREATINE PHOSPHOKINASE 32 U/L (26-192); CREATININE FOR GFR 0.63 MG/DL (0.55-1.30); GLOMERULAR FILTRATION RATE > 60.0 (>51); GLUCOSE, FASTING 204 MG/DL (70-100); MB/CK RELATIVE INDEX 3.12 (< OR =4); NT-PRO BNP 44 PG/ML (<125); POTASSIUM SERUM 4.4 MEQ/L (3.5-5.1); SODIUM LEVEL 135 MEQ/L (136-145); TOTAL PROTEIN 7.2 GM/DL (6.4-8.2); TROPONIN I < 0.02 NG/ML (< 0.10)
[2021-02-10] MEDS ORDERED: LevoFLOXacin IV 750 MG in IV 1 EA IV ONE (17:20)
[2021-02-10 17:27] LABS: RSV AMPLIFICATION NEGATIVE (NEGATIVE)
[2021-02-10] MEDS ORDERED: LISINOPRIL *2.5 MG* TAB PO ONE (17:50)
[2021-02-10] MEDS ORDERED: GLUCOSE 4GM CHEW TABLET PO PRN (18:00)
[2021-02-10] MEDS ORDERED: DEXTROSE 50% 50 ML SYRINGE IV PRN (18:00)
[2021-02-10] MEDS ORDERED: GLUCAGON INJ 1MG VIAL SC PRN (18:00)
[2021-02-10] MEDS ORDERED: LEVALBUTEROL 1.25 MG/0.5 ML CONCENTRATE NEB INH PRN (18:00)
[2021-02-10] MEDS ORDERED: SYNT125T PO (18:08)
[2021-02-10] MEDS ORDERED: GLIP5TAB8 PO (18:08)
[2021-02-10] MEDS ORDERED: ARNU1INH3 INH (18:08)
[2021-02-10] MEDS ORDERED: CYAN500T3 PO (18:08)
[2021-02-10] MEDS ORDERED: STIO1AER INH (18:08)
[2021-02-10] MEDS ORDERED: D3 U5000 PO (18:08)
[2021-02-10] MEDS ORDERED: DULO1CAP5 PO (18:08)
[2021-02-10] MEDS ORDERED: REFR0.5D8 OU (18:08)
[2021-02-10] MEDS ORDERED: MUCI1TAB16 PO (18:11)
[2021-02-10] MEDS ORDERED: HOME MED LIST COMPLETE! XX SCH (18:15)
[2021-02-10] MEDS ORDERED: atenoloL 50 MG TAB PO ONE (18:50)
--- NOTE | 2021-02-10 18:50 | HPEPDOC ---
[facility] Medical History & Physical Date of Admission Feb 10, 2021 Date of Service: Feb 10, 2021 History and Physical CHIEF COMPLAINT: sob cough HISTORY OF PRESENT ILLNESS: 55 F w chronic hypoxic respiratory failure on 2 L of oxygen COPD secondary polycythemia diabetes hypertension peripheral neuropathy sleep apnea chronic migraine completed 10 days of cefdinir for pneumonia with persistent cough productive of white-yellow sputum shortness of breath dyspnea on exertion without chest pain pressure tightness paroxysmal nocturnal dyspnea diarrhea or headaches .patient had been having shortness of breath since 28 December it has been treated with antibiotics and steroids as outpatient without much relief .she was recently referred to crossing watch[facility] Dr. Carrillo and Dr. Pardo for secondary polycythemia. Patient denies any other sick contacts no nausea vomiting. In the ER she was found to be tachypneic tachycardic with elevated white count. Chest x-ray shows bibasilar infiltrates coronavirus 19 is negative hospitalist was asked to admit the patient for bilateral pneumonia after failing outpatient treatment with cefdinir for 10 days. PAST MEDICAL HISTORY: Diabetes diabetic retinopathy fibromyalgia hypertension peripheral neuropathy hypothyroidism obstructive sleep apnea chronic hypoxic respiratory failure on 2 L of oxygen COPD with [id number] history of smoking cigarettes chronic migraines chronic neck and upper extremity pain PAST SURGICAL HISTORY: Tonsillectomy x3 cholecystectomy partial hysterectomy for fibroids with 1 or 2 ovary left EGD SOCIAL HISTORY: is the healthcare proxy [place] phone #[phone] [id number] history of smoking denies alcohol or recreational drug use retired as a director of retail previously smoked 2 packs a day cigarettes since age of 10 FAMILY HISTORY: Father with CHF mother at the age of 42 complications of juvenile diabetes half-sister has type 2 diabetes and Crohn's disease ALLERGIES: Please see below. REVIEW OF SYSTEMS: 10 point review of systems negative aside from positive findings in HPI HOME MEDICATIONS: Please see below. PHYSICAL EXAMINATION: VITAL SIGNS: See below GENERAL APPEARANCE: Positive respiratory distress with tachypnea but able to complete full sentences no use of respiratory accessory muscles or tripod positioning HEENT: No JVD thyromegaly moist mucous membranes poor dentition no stridor CARDIOVASCULAR: S1-S2 sinus tachycardia nondisplaced PMI slight right ventricular heave LUNGS: Bibasilar crackles air entry is diminished faint expiratory wheezing ABDOMEN: Positive bowel sounds soft nontender nondistended no hepatosplenomegaly no rebound or guarding EXTREMITIES: No cyanosis clubbing or pitting edema LABORATORY DATA: See below. IMAGING: See below MICROBIOLOGY: Please see below. ASSESSMENT: 55-year-old female presents emergency room with persistent cough and shortness of breath failing outpatient treatment for community-acquired pneumonia with 10 days of cefdinir. Patient will be admitted as an inpatient for the following acute issues: Community acquired pneumonia -Check MRSA screen. Respiratory panel is negative for coronavirus. -Patient has failed 10 days of cefdinir as outpatient. -Check a sputum culture blood cultures x2 sets urine Legionella antigen urine streptococcal antigen -7 days of IV ceftriaxone and IV doxycycline COPD exacerbation -Rapid tapering of IV Solu-Medrol resume inhaled bronchodilators supplemental oxygen to keep saturations at 90 to 92% Chronic hypoxic respiratory failure on 2 L of home oxygen Secondary polycythemia secondary to end-stage COPD on home oxygen 2 L at all times Hypothyroidism recent increase in thyroid supplement 225 mcg daily Hypertensive urgency -Resume home medications lisinopril may add Norvasc hydralazine or isosorbide or an CHARISSE inhibitor Type 2 diabetes, uncontrolled Resume home dose of insulin insulin sliding scale consistent carbohydrate diet and fingersticks QA [facility] with coverage Obstructive sleep apnea Supplemental oxygen May resume CPAP Vital Signs Vital Signs Date Time Temp Pulse Resp B/P (MAP) Pulse Ox O2 Delivery O2 Flow Rate FiO2 02/10/21 18:25 118 200/96 02/10/21 15:46 Nasal Cannula 3.0 02/10/21 15:08 99.2 24 84 Laboratory Data Labs 24H Laboratory Tests 2 02/10/21 16:10: Immature Granulocyte % (Auto) 0.4, Neutrophils (%) (Auto) 80.7H, Lymphocytes (%) (Auto) 7.0L, Monocytes (%) (Auto) 11.4H, Eosinophils (%) (Auto) 0.1, Basophils (%) (Auto) 0.4, Neutrophils # (Auto) 13.1H, Lymphocytes # (Auto) 1.1L, Monocytes # (Auto) 1.9H, Eosinophils # (Auto) 0.0, Basophils # (Auto) 0.1, Nucleated Red Blood Cells % (auto) 0.0, Anion Gap 7L, Glomerular Filtration Rate > 60.0, Calcium Level 8.6, Total Bilirubin 0.4, Direct Bilirubin 0.2, Aspartate Amino Transf (AST/SGOT) 24, Alanine Aminotransferase (ALT/SGPT) 21, Alkaline Phosphatase 123H, Total Creatine Kinase 32, Creatine Kinase MB < 1.0, Creatine Kinase MB Relative Index 3.12, Troponin I < 0.02, VL-Byx-T-Type Natriuretic Peptide 44, Total Protein 7.2, Albumin 3.1L, Albumin/Globulin Ratio 0.8L, Thyroid Stimulating Hormone (TSH) 7.890H 02/10/21 16:11: Lactic Acid Level 1.2, Coronavirus (COVID-19)(PCR) NEGATIVE, Influenza Type A (RT-PCR) NEGATIVE, Influenza Type B (RT-PCR) NEGATIVE, Respiratory Syncytial Virus (PCR) NEGATIVE CBC/BMP Laboratory Tests 02/10/21 16:10 Microbiology Microbiology 02/10/21 Blood Culture, Received Pending 02/10/21 Blood Culture, Received Pending Home Medications Scheduled Aspirin (Aspirin EC) 325 Mg Tab, 325 MG PO DAILY Cholecalciferol (Vitamin D3) (Vitamin D3) 125 Mcg Capsule, 125 MCG PO DAILY Cyanocobalamin (Vitamin B-12) (Vitamin B-12) 500 Mcg Tablet, 500 MCG PO DAILY Duloxetine Hcl (Duloxetine HCl) 30 Mg Capsule.dr, 30 MG PO DAILY Fluticasone Furoate (Arnuity Ellipta) 200 Mcg Blst.w.dev, 1 PUFF INH DAILY Glipizide (Glipizide) 5 Mg Tablet, 5 MG PO DAILY Insulin Glargine,Hum.rec.anlog (Basaglar Kwikpen U-100) 100 Unit/1 Ml Insuln.pen, 30 UNIT SC DAILY Levothyroxine Sodium (Synthroid) 125 Mcg Tablet, 125 MCG PO QAM Lisinopril (Lisinopril) 2.5 Mg Tablet, 2.5 MG PO DAILY Tiotropium Br/Olodaterol HCl (Stiolto Respimat Inhal Keller) 4 Gm Mist.inhal, 2 PUFFS INH DAILY Scheduled PRN Albuterol Sulf (Albuterol Sulfate) 2.5 Mg/3 Ml Nebu, 2.5 MG INH QID PRN for SHORTNESS OF BREATH Albuterol Sulfate (Ventolin Hfa) 108 Mcg/Act Aer, 2 PUFFS INH QID PRN for SHORTNESS OF BREATH Carboxymethylcellulose Sodium (Refresh Tears) 15 Ml Drops, 1 DROP OU QID PRN for DRY EYES Fluticasone Propionate (Flonase Allergy Relief) 9.9 Ml Keller.susp, 2 SPRAY NARES DAILY PRN for CONGESTION Guaifenesin (Mucinex) 1,200 Mg Tab.er.12h, 1,200 MG PO BID PRN for CONGESTION Ibuprofen (Ibuprofen) 200 Mg Tab, 800 MG PO QID PRN for PAIN Allergies Coded Allergies: varenicline (Verified Adverse Reaction, Intermediate, headache, 02/10/21) tramadol (Verified Adverse Reaction, Unknown, dizziness, 02/10/21) A-FIB/CHADSVASC A-FIB History Current/History of A-Fib/PAF?: No Current PO Anticoag Therapy: No Age/Risk Factor Scoring CHADSVASC: CHADSVASC Response (Comments) Value Age Risk Factor Age < 65 years old 0 Gender Risk Factor Female 1 Hx of CHF No 0 Hx of HTN No 0 Hx of Stroke/TIA/or VTE No 0 Hx of Diabetes No 0 Hx of Vascular Disease No 0 Total 1 Treatment Treatment ordered: NONE BRITT AMARO MD Feb 10, 2021 18:39
[2021-02-10] MEDS ORDERED: ISOSORBIDE DIN. (ISORDIL) 30 MG TAB PO PRN (18:55)
[2021-02-10] MEDS ORDERED: FLUTICASONE PROP 0.05% NASAL SPRAY 16 GM (FLONASE) NARES PRN (18:55)
[2021-02-10] MEDS ORDERED: **hydrALAZINE** 10 MG TAB PO PRN (18:55)
[2021-02-10] MEDS ORDERED: guaiFENesin DM LIQ 10ML UD PO ONE (19:00)
[2021-02-10] MEDS ORDERED: guaiFENesin DM LIQ 10ML UD PO PRN (19:00)
[2021-02-10 19:11] LABS: FREE THYROXINE INDEX 3.8 % (1.3-4.8); T UPTAKE 37 % (30-39); THYROXINE (T4) 10.3 UG/DL (4.5-12.0)
[2021-02-10 19:25] LABS: HEMOGLOBIN A1c 8.4 %
[2021-02-10] MEDS: HumaLOG INSULIN (NovoLOG) PER UNIT SC SCH (19:47)
[2021-02-10] MEDS: cefTRIAXone SOD 2 GM in D5W MINI-BAG PLUS 50 ML IV SCH (19:47)
[2021-02-10] MEDS: LEVALBUTEROL 1.25 MG/0.5 ML CONCENTRATE NEB INH SCH (20:00)
--- NOTE | 2021-02-10 20:07 | REPVR ---
PROCEDURE INFORMATION: Exam: CT Head Without Contrast Exam date and time: 02/10/2021 7:21 PM Age: 55 years old Clinical indication: Other: HTN; Additional info: HTN urgency R/O ich TECHNIQUE: Imaging protocol: Computed tomography of the head without contrast. Radiation optimization: All CT scans at this facility use at least one of these dose optimization techniques: automated exposure control; mA and/or kV adjustment per patient size (includes targeted exams where dose is matched to clinical indication); or iterative reconstruction. COMPARISON: No relevant prior studies available. FINDINGS: Brain: There is no evidence of intracranial bleed. The nevarez-white differentiation appears preserved. Cerebral ventricles: Normal appearing ventricles. Paranasal sinuses: Clear paranasal sinuses. Mastoid air cells: Clear mastoid air cells. Bones/joints: There is no evidence of fracture. Soft tissues: There is a small oval scalp lesion on the left consistent with a benign finding. IMPRESSION: Normal appearing CT scan of the brain. Electronically signed by: Alexey Montoya On 02/10/2021 20:06:45 PM
--- NOTE | 2021-02-10 20:10 | REPVR ---
PROCEDURE INFORMATION: Exam: CT Chest Without Contrast; Diagnostic Exam date and time: 02/10/2021 7:21 PM Age: 55 years old Clinical indication: Cough; Additional info: SOB cough TECHNIQUE: Imaging protocol: Diagnostic computed tomography of the chest without contrast. 3D rendering (Not supervised by radiologist): MIP and/or 3D reconstructed images were created by the technologist. Radiation optimization: All CT scans at this facility use at least one of these dose optimization techniques: automated exposure control; mA and/or kV adjustment per patient size (includes targeted exams where dose is matched to clinical indication); or iterative reconstruction. COMPARISON: CT ANGIO CHEST 11/18/2017 7:07 PM FINDINGS: Lungs: Tree-in-bud opacities are demonstrated in the right upper lobe, right middle lobe, lingular lobe, and small foci in the right lower lobe. The findings are consistent with age indeterminate alveolitis/terminal bronchiolitis. A coarse parenchymal infiltrate is demonstrated in the lingular lobe not present on the 2018 scan. Finding is consistent with a focus of atelectasis or pneumonitis. Second small focus of parenchymal opacity rib likely representing a focus of pneumonitis or atelectasis in the right middle lobe. Pleural spaces: Unremarkable. No pneumothorax. No pleural effusion. Heart: There is mild atherosclerotic calcification of the coronary arteries. Aorta: There is mild atherosclerosis in the thoracic aorta. Lymph nodes: Multiple small mediastinal lymph nodes likely postinflammatory. Bones/joints: Unremarkable. No acute fracture. Soft tissues: Unremarkable. IMPRESSION: 1. Tree-in-bud opacities are demonstrated in the right upper lobe, right middle lobe, lingular lobe, and small foci in the right lower lobe. The findings are consistent with age indeterminate foci of alveolitis/terminal bronchiolitis. 2. A coarse parenchymal infiltrate is demonstrated in the lingular lobe not present on the 2018 scan. Finding is consistent with a focus of atelectasis or pneumonitis. Second small focus of parenchymal opacity rib likely representing a focus of pneumonitis or atelectasis in the right middle lobe. Electronically signed by: Perry Dow On 02/10/2021 20:09:52 PM
[2021-02-10] MEDS: DOXYCYCLINE HYCLATE 100 MG in D5W MINI-BAG PLUS 100 ML IV SCH (22:00)
[2021-02-11 02:19] VITALS: BP 135/74
[2021-02-11] MEDS: LEVALBUTEROL 1.25 MG/0.5 ML CONCENTRATE NEB INH SCH ×7 (03:29→23:23)
[2021-02-11 06:00] VITALS: BP 131/67
[2021-02-11] MEDS: LEVOTHYROXINE 125MCG TABLET (0.125MG) PO SCH (06:24)
[2021-02-11] MEDS: DULoxetine 30 MG CAP (CYMBALTA) PO SCH (08:42)
[2021-02-11] MEDS: ASPIRIN ENTERIC 325 MG TAB PO SCH (08:43)
[2021-02-11] MEDS: CYANOCOBALAMIN 500 MCG TAB PO SCH (08:43)
[2021-02-11] MEDS: HumaLOG INSULIN (NovoLOG) PER UNIT SC SCH ×4 (08:44→21:20)
[2021-02-11] MEDS ORDERED: KETOROLAC 30 MG/ML 1ML VIAL IV ONE (08:55)
[2021-02-11] MEDS ORDERED: METOCLOPRAMIDE INJ 10MG/2ML VIAL (J2765 PER 1) IV ONE (08:55)
[2021-02-11] MEDS: ARNUITY INH SCH (09:00)
[2021-02-11] MEDS ORDERED: ARNUITY ELLIPTA 200 MCG INH SCH ×2 (09:00)
[2021-02-11] MEDS ORDERED: LEVEMIR (INSULIN DETEMIR) 1 UNITS/0.01ML SC SCH (09:00)
[2021-02-11] MEDS: DOXYCYCLINE HYCLATE 100 MG in D5W MINI-BAG PLUS 100 ML IV SCH ×2 (09:50→22:29)
--- NOTE | 2021-02-11 09:59 | ECGEPIP ---
[facility] - ED Test Date: 2021-02-10 Pat Name: SORAYA ROBB Department: Room: - Gender: Female Manager Air: JUNG : 1965 Requested By: HEATHER DIAZ Order Number: [id number] Reading MD: Mini Rain Measurements Intervals [place] Rate: 111 P: 78 UT: 158 QRS: 89 QRSD: 88 T: 72 QT: 322 QTc: 437 Interpretive Statements Sinus tachycardia Right atrial enlargement Minimal voltage criteria for LVH, may be normal variant ( Lamoure product ) NSTTW abnormalities increased rate 11/22/17 Electronically Signed on 02-11-2021 9:59:33 EDT by Mini Rain
[2021-02-11 10:52] LABS: HEMATOCRIT 48.4 % (36.0-47.0); HEMOGLOBIN 15.9 g/dl (12.0-15.5); MEAN CORPUSCULAR HEMOGLOBIN 30.1 pg (27.0-33.0); MEAN CORPUSCULAR HGB CONC 32.9 g/dl (32.0-36.5); MEAN CORPUSCULAR VOLUME 91.7 fl (80.0-96.0); PLATELET COUNT, AUTOMATED 326 10^3/uL (150-450); RED BLOOD COUNT 5.28 10^6/uL (4.00-5.40); WHITE BLOOD COUNT 14.2 10^3/uL (4.0-10.0)
[2021-02-11 11:28] LABS: ATYPICAL LYMPH 3 % (0-5); LYMPHOCYTES 10 % (16-44); MONOCYTES 8 % (0-5); NEUTROPHILS 79 % (28-66); PLATELET ESTIMATE NORMAL (NORMAL)
[2021-02-11 11:35] LABS: ERYTHROCYTE SEDIMENTATION RATE 35 mm/hr (0-30)
[2021-02-11 11:41] LABS: BLOOD UREA NITROGEN 26 MG/DL (7-18); CARBON DIOXIDE LEVEL 23 MEQ/L (21-32); CHLORIDE LEVEL 96 MEQ/L (98-107); CREATININE FOR GFR 0.73 MG/DL (0.55-1.30); GLOMERULAR FILTRATION RATE > 60.0 (>51); GLUCOSE, FASTING 262 MG/DL (70-100); NT-PRO BNP 113 PG/ML (<125); POTASSIUM SERUM 5.7 MEQ/L (3.5-5.1); SODIUM LEVEL 129 MEQ/L (136-145)
--- NOTE | 2021-02-11 12:24 | IPNPDOC ---
Date Seen The patient was seen on 02/11/21. Progress Note SUBJECTIVE: Patient continues to have productive cough of white-yellow sputum no fever chills shortness of breath is only slightly improved still has dyspnea on exertion complains of slight pleuritic chest pain when she coughs. OBJECTIVE: PHYSICAL EXAMINATION: VITAL SIGNS: See below GENERAL APPEARANCE: Sitting in a chair at the bedside no distress speaks in full sentences no tripod positioning no tripod positioning no use of respiratory accessory muscles HEENT: No JVD thyromegaly moist mucous membranes poor dentition no stridor no carotid bruit CARDIOVASCULAR: S1-S2 sinus nondisplaced PMI slight right ventricular heave no murmurs noted LUNGS: Bilateral crackles air entry is diminished improved air entry bilaterally ABDOMEN: Positive bowel sounds soft nontender nondistended no hepatosplenomegaly no rebound or guarding EXTREMITIES: No cyanosis clubbing or pitting edema LABORATORY DATA: See below. IMAGING: See below PROCEDURE INFORMATION: Exam: CT Chest Without Contrast; Diagnostic Exam date and time: 02/10/2021 7:21 PM Age: 55 years old Clinical indication: Cough; Additional info: SOB cough TECHNIQUE: Imaging protocol: Diagnostic computed tomography of the chest without contrast. 3D rendering (Not supervised by radiologist): MIP and/or 3D reconstructed images were created by the technologist. Radiation optimization: All CT scans at this facility use at least one of these dose optimization techniques: automated exposure control; mA and/or kV adjustment per patient size (includes targeted exams where dose is matched to clinical indication); or iterative reconstruction. COMPARISON: CT ANGIO CHEST 11/18/2017 7:07 PM FINDINGS: Lungs: Tree-in-bud opacities are demonstrated in the right upper lobe, right middle lobe, lingular lobe, and small foci in the right lower lobe. The findings are consistent with age indeterminate alveolitis/terminal bronchiolitis. A coarse parenchymal infiltrate is demonstrated in the lingular lobe not present on the 2018 scan. Finding is consistent with a focus of atelectasis or pneumonitis. Second small focus of parenchymal opacity rib likely representing a focus of pneumonitis or atelectasis in the right middle lobe. Pleural spaces: Unremarkable. No pneumothorax. No pleural effusion. Heart: There is mild atherosclerotic calcification of the coronary arteries. Aorta: There is mild atherosclerosis in the thoracic aorta. Lymph nodes: Multiple small mediastinal lymph nodes likely postinflammatory. Bones/joints: Unremarkable. No acute fracture. Soft tissues: Unremarkable. IMPRESSION: 1. Tree-in-bud opacities are demonstrated in the right upper lobe, right middle lobe, lingular lobe, and small foci in the right lower lobe. The findings are consistent with age indeterminate foci of alveolitis/terminal bronchiolitis. 2. A coarse parenchymal infiltrate is demonstrated in the lingular lobe not present on the 2018 scan. Finding is consistent with a focus of atelectasis or pneumonitis. Second small focus of parenchymal opacity rib likely representing a focus of pneumonitis or atelectasis in the right middle lobe. MICROBIOLOGY: Please see below. ASSESSMENT: 55-year-old female presents emergency room with persistent cough and shortness of breath failing outpatient treatment for community-acquired pneumonia with 10 days of cefdinir. Patient will be admitted as an inpatient for the following acute issues: Community acquired pneumonia -Negative MRSA screen. Respiratory panel is negative for coronavirus. -Patient has failed 10 days of cefdinir as outpatient. -Awaiting report of sputum culture blood cultures x2 sets urine Legionella antigen urine streptococcal antigen -7 days of IV ceftriaxone and IV doxycycline -CT chest shows tree-in-bud opacity alveolitis or terminal bronchiolitis and atelectasis. Will review CT with rib chopper. COPD exacerbation -On IV Solu-Medrol resume inhaled bronchodilators supplemental oxygen to keep saturations at 90 to 92% Chronic hypoxic respiratory failure on 2 L of home oxygen Secondary polycythemia secondary to end-stage COPD on home oxygen 2 L at all times Hypothyroidism recent increase in thyroid supplement 125 mcg daily Hypertensive urgency -Improved on home medications Type 2 diabetes, uncontrolled/steroid-induced hyperglycemia Resume home dose of insulin insulin sliding scale consistent carbohydrate diet and fingersticks QA [facility] with coverage Obstructive sleep apnea Supplemental oxygen May resume CPAP Hyponatremia -No mental status changes. Avoid diuretics Hyperkalemia -Kayexalate calcium gluconate -Repeat basic metabolic panel. VS, I&O, 24H, Fishbone Vital Signs/I&O Vital Signs Date Time Temp Pulse Resp B/P (MAP) Pulse Ox O2 Delivery O2 Flow Rate FiO2 02/11/21 06:00 97.6 79 18 131/67 (88) 91 Nasal Cannula 2.0 I&O- Last 24 Hours up to 6 AM 02/11/21 06:00 Intake Total 280 ml Output Total 225 ml Balance 55 ml Laboratory Data 24H LABS Laboratory Tests 2 02/10/21 16:10: Immature Granulocyte % (Auto) 0.4, Neutrophils (%) (Auto) 80.7H, Lymphocytes (%) (Auto) 7.0L, Monocytes (%) (Auto) 11.4H, Eosinophils (%) (Auto) 0.1, Basophils (%) (Auto) 0.4, Neutrophils # (Auto) 13.1H, Lymphocytes # (Auto) 1.1L, Monocytes # (Auto) 1.9H, Eosinophils # (Auto) 0.0, Basophils # (Auto) 0.1, Nucleated Red Blood Cells % (auto) 0.0, Anion Gap 7L, Glomerular Filtration Rate > 60.0, Estimated Mean Plasma Glucose 194H, Hemoglobin A1c 8.4, Calcium Level 8.6, Total Bilirubin 0.4, Direct Bilirubin 0.2, Aspartate Amino Transf (AST/SGOT) 24, Alanine Aminotransferase (ALT/SGPT) 21, Alkaline Phosphatase 123H, Total Creatine Kinase 32, Creatine Kinase MB < 1.0, Creatine Kinase MB Relative Index 3.12, Troponin I < 0.02, BK-Ndg-W-Type Natriuretic Peptide 44, Total Protein 7.2, Albumin 3.1L, Albumin/Globulin Ratio 0.8L, Thyroid Stimulating Hormone (TSH) 7.890H, Free Thyroxine Index 3.8, Thyroxine (T4) 10.3, Triiodothyronine (T3) Uptake 37 02/10/21 16:11: Lactic Acid Level 1.2, Coronavirus (COVID-19)(PCR) NEGATIVE, Influenza Type A (RT-PCR) NEGATIVE, Influenza Type B (RT-PCR) NEGATIVE, Respiratory Syncytial Virus (PCR) NEGATIVE 02/11/21 02:20: Bedside Glucose (Misc Panel) 280H 02/11/21 03:05: Methicillin-Resist S.aureus DNA PCR NOT DETECTED 02/11/21 07:49: Bedside Glucose (Misc Panel) 243H 02/11/21 10:33: Anion Gap 10, Glomerular Filtration Rate > 60.0, Calcium Level 9.0, C-Reactive Protein, Quantitative 34.40H, IP-Cye-E-Type Natriuretic Peptide 113 02/11/21 10:37: Neutrophils (%) (Auto) , Nucleated Red Blood Cells % (auto) 0.0, Neutrophils 79H, Lymphocytes (Manual) 10L, Monocytes (Manual) 8H, Atypical Lymphocytes 3, Platelet Estimate NORMAL, Erythrocyte Sedimentation Rate 35H 02/11/21 11:53: Bedside Glucose (Misc Panel) 269H CBC/BMP Laboratory Tests 02/10/21 16:10 02/11/21 10:33 02/11/21 10:37 Microbiology Microbiology 02/10/21 Blood Culture, Received Pending 02/10/21 Blood Culture, Received Pending BRITT AMARO MD Feb 11, 2021 12:18
[2021-02-11] MEDS ORDERED: CALCIUM GLUCONATE 1,000 MG in D5W MINI-BAG PLUS 100 ML IV ONE (13:00)
[2021-02-11] MEDS: methylPREDNISolone 125MG 2ML VIAL IV SCH ×2 (13:26→21:20)
[2021-02-11 14:00] VITALS: BP 140/64
[2021-02-11] MEDS ORDERED: SOD POLYSTYRENE SULFONATE SUSP 15 GM/60 ML UD PO ONE (14:00)
[2021-02-11 19:56] LABS: CALCIUM LEVEL 9.3 MG/DL (8.5-10.1); CREATININE FOR GFR 1.02 MG/DL (0.55-1.30); GLOMERULAR FILTRATION RATE 59.5 (>51); POTASSIUM SERUM 4.2 MEQ/L (3.5-5.1)
[2021-02-11] MEDS ORDERED: FLUTICASONE HFA 110 MCG 12 GM INHALER (FLOVENT) INH SCH (20:00)
[2021-02-11] MEDS: cefTRIAXone SOD 2 GM in D5W MINI-BAG PLUS 50 ML IV SCH (21:20)
[2021-02-11 22:00] VITALS: BP 125/61
[2021-02-12] MEDS: methylPREDNISolone 125MG 2ML VIAL IV SCH ×4 (02:42→21:02)
[2021-02-12] MEDS: LEVALBUTEROL 1.25 MG/0.5 ML CONCENTRATE NEB INH SCH ×5 (04:00→19:43)
[2021-02-12] MEDS: LEVOTHYROXINE 125MCG TABLET (0.125MG) PO SCH (05:43)
[2021-02-12 06:00] VITALS: BP 139/73
[2021-02-12 06:11] LABS: HEMATOCRIT 45.7 % (36.0-47.0); HEMOGLOBIN 15.5 g/dl (12.0-15.5); MEAN CORPUSCULAR HEMOGLOBIN 30.4 pg (27.0-33.0); MEAN CORPUSCULAR HGB CONC 33.9 g/dl (32.0-36.5); MEAN CORPUSCULAR VOLUME 89.6 fl (80.0-96.0); PLATELET COUNT, AUTOMATED 330 10^3/uL (150-450)
[2021-02-12 06:33] LABS: BLOOD UREA NITROGEN 28 MG/DL (7-18); CALCIUM LEVEL 8.6 MG/DL (8.5-10.1); CARBON DIOXIDE LEVEL 34 MEQ/L (21-32); CHLORIDE LEVEL 99 MEQ/L (98-107); CREATININE FOR GFR 0.57 MG/DL (0.55-1.30); GLOMERULAR FILTRATION RATE > 60.0 (>51); GLUCOSE, FASTING 301 MG/DL (70-100); POTASSIUM SERUM 4.2 MEQ/L (3.5-5.1); SODIUM LEVEL 135 MEQ/L (136-145)
[2021-02-12] MEDS: ARNUITY INH SCH (08:12)
[2021-02-12] MEDS: DOXYCYCLINE HYCLATE 100 MG in D5W MINI-BAG PLUS 100 ML IV SCH ×2 (09:43→22:42)
[2021-02-12] MEDS: HumaLOG INSULIN (NovoLOG) PER UNIT SC SCH ×4 (09:44→21:03)
[2021-02-12] MEDS: LEVEMIR (INSULIN DETEMIR) 1 UNITS/0.01ML SC SCH ×2 (09:44→21:03)
[2021-02-12] MEDS: CYANOCOBALAMIN 500 MCG TAB PO SCH (09:44)
[2021-02-12] MEDS: DULoxetine 30 MG CAP (CYMBALTA) PO SCH (09:44)
[2021-02-12] MEDS: ASPIRIN ENTERIC 325 MG TAB PO SCH (09:44)
--- NOTE | 2021-02-12 11:00 | IPNPDOC ---
Date Seen The patient was seen on 02/12/21. Progress Note SUBJECTIVE: Shortness of breath is improved she remains afebrile with no chills she was able to sleep a little better yesterday and feels rested but still sleepy this morning Still cough productive of white-yellow sputum. Still with slight dyspnea on exertion no nausea vomiting headache diarrhea or changes in vision OBJECTIVE: PHYSICAL EXAMINATION: VITAL SIGNS: See below GENERAL APPEARANCE: Asleep but arousable answers questions appropriately no conversational dyspnea no use of respiratory accessory muscles HEENT: No JVD thyromegaly moist mucous membranes poor dentition no stridor extra muscles intact CARDIOVASCULAR: No S3 no carotid bruit S1-S2 sinus nondisplaced PMI slight right ventricular heave no murmurs noted LUNGS: Bilateral crackles air entry is diminished improved air entry bilaterally ABDOMEN: Positive bowel sounds soft nontender nondistended no hepatosplenomegaly no rebound or guarding EXTREMITIES: No cyanosis clubbing or pitting edema LABORATORY DATA: See below. IMAGING: See below PROCEDURE INFORMATION: Exam: CT Chest Without Contrast; Diagnostic Exam date and time: 02/10/2021 7:21 PM Age: 55 years old Clinical indication: Cough; Additional info: SOB cough TECHNIQUE: Imaging protocol: Diagnostic computed tomography of the chest without contrast. 3D rendering (Not supervised by radiologist): MIP and/or 3D reconstructed images were created by the technologist. Radiation optimization: All CT scans at this facility use at least one of these dose optimization techniques: automated exposure control; mA and/or kV adjustment per patient size (includes targeted exams where dose is matched to clinical indication); or iterative reconstruction. COMPARISON: CT ANGIO CHEST 11/18/2017 7:07 PM FINDINGS: Lungs: Tree-in-bud opacities are demonstrated in the right upper lobe, right middle lobe, lingular lobe, and small foci in the right lower lobe. The findings are consistent with age indeterminate alveolitis/terminal bronchiolitis. A coarse parenchymal infiltrate is demonstrated in the lingular lobe not present on the 2018 scan. Finding is consistent with a focus of atelectasis or pneumonitis. Second small focus of parenchymal opacity rib likely representing a focus of pneumonitis or atelectasis in the right middle lobe. Pleural spaces: Unremarkable. No pneumothorax. No pleural effusion. Heart: There is mild atherosclerotic calcification of the coronary arteries. Aorta: There is mild atherosclerosis in the thoracic aorta. Lymph nodes: Multiple small mediastinal lymph nodes likely postinflammatory. Bones/joints: Unremarkable. No acute fracture. Soft tissues: Unremarkable. IMPRESSION: 1. Tree-in-bud opacities are demonstrated in the right upper lobe, right middle lobe, lingular lobe, and small foci in the right lower lobe. The findings are consistent with age indeterminate foci of alveolitis/terminal bronchiolitis. 2. A coarse parenchymal infiltrate is demonstrated in the lingular lobe not present on the 2018 scan. Finding is consistent with a focus of atelectasis or pneumonitis. Second small focus of parenchymal opacity rib likely representing a focus of pneumonitis or atelectasis in the right middle lobe. MICROBIOLOGY: Please see below. ASSESSMENT: 55-year-old female presents emergency room with persistent cough and shortness of breath failing outpatient treatment for community-acquired pneu monia with 10 days of cefdinir. Patient will be admitted as an inpatient for the following acute issues: Community acquired pneumonia -Negative MRSA screen. Respiratory panel is negative for coronavirus. -Patient has failed 10 days of cefdinir as outpatient. -Per Dr. Karsten Angel, final tester on-call who reviewed the CT chest patient most likely has atypical pneumonia and should be covered with doxycycline -7 days of IV ceftriaxone and IV doxycycline -CT chest shows tree-in-bud opacity alveolitis or terminal bronchiolitis and atelectasis. -Slight improvement clinically still dyspneic on exertion COPD exacerbation -On IV Solu-Medrol but will taper over the next few days -resume inhaled bronchodilators - supplemental oxygen to keep saturations at 90 to 92% Chronic hypoxic respiratory failure on 2 L of home oxygen Secondary polycythemia secondary to end-stage COPD on home oxygen 2 L at all times Hypothyroidism recent increase in thyroid supplement 125 mcg daily Hypertensive urgency -Improved on home medications Type 2 diabetes, uncontrolled/steroid-induced hyperglycemia Resume home dose of insulin insulin sliding scale nsistent carbohydrate diet and fingersticks QA [facility] with coverage -Increase long-acting insulin as needed for better glycemic control To 15 units subcu twice daily Obstructive sleep apnea Supplemental oxygen May resume CPAP Hyponatremia -No mental status changes. Avoid diuretics Hyperkalemia, resolved -Status post Kayexalate calcium gluconate VS, I&O, 24H, Fishbone Vital Signs/I&O Vital Signs Date Time Temp Pulse Resp B/P (MAP) Pulse Ox O2 Delivery O2 Flow Rate FiO2 02/12/21 06:00 96.8 70 20 139/73 (95) 90 Nasal Cannula 2.0 I&O- Last 24 Hours up to 6 AM 02/12/21 06:00 Intake Total 2050 ml Output Total 1900 ml Balance 150 ml Laboratory Data 24H LABS Laboratory Tests 2 02/11/21 11:53: Bedside Glucose (Misc Panel) 269H 02/11/21 16:57: Bedside Glucose (Misc Panel) 232H 02/11/21 19:05: Anion Gap 5L, Glomerular Filtration Rate 59.5, Calcium Level 9.3 02/11/21 20:01: Bedside Glucose (Misc Panel) 427H 02/12/21 05:45: Nucleated Red Blood Cells % (auto) 0.0, Anion Gap 2L, Glomerular Filtration Rate > 60.0, Calcium Level 8.6 CBC/BMP Laboratory Tests 02/11/21 12:16 02/11/21 19:05 02/12/21 05:45 Microbiology Microbiology 02/11/21 Gram Stain - Final, Resulted 02/11/21 Sputum Culture, Resulted Pending 02/10/21 Blood Culture - Preliminary, Resulted No growth after 24 hours . All specim... 02/10/21 Blood Culture - Preliminary, Resulted No growth after 24 hours . All specim... BRITT AMARO MD Feb 12, 2021 11:00
[2021-02-12 14:00] VITALS: BP 147/71
[2021-02-12] MEDS: cefTRIAXone SOD 2 GM in D5W MINI-BAG PLUS 50 ML IV SCH (21:02)
[2021-02-12 22:00] VITALS: BP 147/72
[2021-02-12] MEDS: ACETAMINOPHEN TAB 650MG DOSE (2X325MG) PO PRN (22:47)
[2021-02-13] MEDS: methylPREDNISolone 125MG 2ML VIAL IV SCH ×2 (02:36→07:59)
[2021-02-13] MEDS: LEVALBUTEROL 1.25 MG/0.5 ML CONCENTRATE NEB INH SCH ×7 (03:18→23:30)
[2021-02-13 06:00] VITALS: BP 151/78
[2021-02-13] MEDS: LEVOTHYROXINE 125MCG TABLET (0.125MG) PO SCH (06:09)
[2021-02-13 06:10] VITALS: BP 146/72
[2021-02-13 06:11] LABS: HEMATOCRIT 46.7 % (36.0-47.0); HEMOGLOBIN 15.4 g/dl (12.0-15.5); MEAN CORPUSCULAR HEMOGLOBIN 29.7 pg (27.0-33.0); MEAN CORPUSCULAR VOLUME 90.2 fl (80.0-96.0); PLATELET COUNT, AUTOMATED 345 10^3/uL (150-450); RED BLOOD COUNT 5.18 10^6/uL (4.00-5.40)
[2021-02-13 06:37] LABS: BLOOD UREA NITROGEN 24 MG/DL (7-18); CALCIUM LEVEL 9.3 MG/DL (8.5-10.1); CARBON DIOXIDE LEVEL 36 MEQ/L (21-32); CHLORIDE LEVEL 101 MEQ/L (98-107); CREATININE FOR GFR 0.49 MG/DL (0.55-1.30); GLOMERULAR FILTRATION RATE > 60.0 (>51); GLUCOSE, FASTING 212 MG/DL (70-100); SODIUM LEVEL 140 MEQ/L (136-145)
[2021-02-13] MEDS: ARNUITY INH SCH (07:32)
[2021-02-13] MEDS: CYANOCOBALAMIN 500 MCG TAB PO SCH (07:59)
[2021-02-13] MEDS: HumaLOG INSULIN (NovoLOG) PER UNIT SC SCH ×4 (07:59→20:46)
[2021-02-13] MEDS: ASPIRIN ENTERIC 325 MG TAB PO SCH (07:59)
[2021-02-13] MEDS: DULoxetine 30 MG CAP (CYMBALTA) PO SCH (07:59)
[2021-02-13] MEDS: LEVEMIR (INSULIN DETEMIR) 1 UNITS/0.01ML SC SCH ×2 (08:00→20:46)
[2021-02-13] MEDS: DOXYCYCLINE HYCLATE 100 MG in D5W MINI-BAG PLUS 100 ML IV SCH ×2 (10:33→21:53)
[2021-02-13] MEDS: ACETAMINOPHEN TAB 650MG DOSE (2X325MG) PO PRN (10:37)
--- NOTE | 2021-02-13 10:51 | IPNPDOC ---
Date Seen The patient was seen on 02/13/21. Progress Note SUBJECTIVE: Patient says that she feels better with her shortness of breath improved since admission She still complains of feeling congested with persistent cough but able to sleep at night She has no fever chills No nausea vomiting or changes in vision no diarrhea OBJECTIVE: PHYSICAL EXAMINATION: VITAL SIGNS: See below GENERAL APPEARANCE: Sitting on a chair at the bedside in no distress no tripod position anicteric sclera no jaundice or icterus HEENT: No JVD thyromegaly moist mucous membranes poor dentition no stridor extra muscles intact able to speak in full sentences without conversational dyspnea CARDIOVASCULAR: No S3 no carotid bruit S1-S2 sinus nondisplaced PMI slight right ventricular heave no murmurs noted LUNGS: Coarse rhonchi bilaterally with bibasilar crackles ABDOMEN: Positive bowel sounds soft nontender nondistended no hepatosplenomegaly no rebound or guarding EXTREMITIES: No cyanosis clubbing or pitting edema LABORATORY DATA: See below. IMAGING: See below PROCEDURE INFORMATION: Exam: CT Chest Without Contrast; Diagnostic Exam date and time: 02/10/2021 7:21 PM Age: 55 years old Clinical indication: Cough; Additional info: SOB cough TECHNIQUE: Imaging protocol: Diagnostic computed tomography of the chest without contrast. 3D rendering (Not supervised by radiologist): MIP and/or 3D reconstructed images were created by the technologist. Radiation optimization: All CT scans at this facility use at least one of these dose optimization techniques: automated exposure control; mA and/or kV adjustment per patient size (includes targeted exams where dose is matched to clinical indication); or iterative reconstruction. COMPARISON: CT ANGIO CHEST 11/18/2017 7:07 PM FINDINGS: Lungs: Tree-in-bud opacities are demonstrated in the right upper lobe, right middle lobe, lingular lobe, and small foci in the right lower lobe. The findings are consistent with age indeterminate alveolitis/terminal bronchiolitis. A coarse parenchymal infiltrate is demonstrated in the lingular lobe not present on the 2018 scan. Finding is consistent with a focus of atelectasis or pneumonitis. Second small focus of parenchymal opacity rib likely representing a focus of pneumonitis or atelectasis in the right middle lobe. Pleural spaces: Unremarkable. No pneumothorax. No pleural effusion. Heart: There is mild atherosclerotic calcification of the coronary arteries. Aorta: There is mild atherosclerosis in the thoracic aorta. Lymph nodes: Multiple small mediastinal lymph nodes likely postinflammatory. Bones/joints: Unremarkable. No acute fracture. Soft tissues: Unremarkable. IMPRESSION: 1. Tree-in-bud opacities are demonstrated in the right upper lobe, right middle lobe, lingular lobe, and small foci in the right lower lobe. The findings are consistent with age indeterminate foci of alveolitis/terminal bronchiolitis. 2. A coarse parenchymal infiltrate is demonstrated in the lingular lobe not present on the 2018 scan. Finding is consistent with a focus of atelectasis or pneumonitis. Second small focus of parenchymal opacity rib likely representing a focus of pneumonitis or atelectasis in the right middle lobe. MICROBIOLOGY: Please see below. ASSESSMENT: 55-year-old female presents emergency room with persistent cough and shortness of breath failing outpatient treatment for community-acquired pneumonia with 10 days of cefdinir. Patient will be admitted as an inpatient for the following acute issues: Community acquired pneumonia CT chest reviewed by rn practitioner Dr. 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 Avoid diuretics Hyperkalemia, resolved -Status post Kayexalate calcium gluconate Disposition discharge on Tuesday after second dose of doxycycline VS, I&O, 24H, Fishbone Vital Signs/I&O Vital Signs Date Time Temp Pulse Resp B/P (MAP) Pulse Ox O2 Delivery O2 Flow Rate FiO2 02/13/21 06:10 82 146/72 (96) 02/13/21 06:00 97.7 17 92 Nasal Cannula 2.0 I&O- Last 24 Hours up to 6 AM 02/13/21 06:00 Intake Total 1470 ml Output Total 1200 ml Balance 270 ml Laboratory Data 24H LABS Laboratory Tests 2 02/12/21 11:44: Bedside Glucose (Misc Panel) 431H 02/12/21 16:44: Bedside Glucose (Misc Panel) 298H 02/12/21 20:36: Bedside Glucose (Misc Panel) 494H 02/13/21 05:54: Nucleated Red Blood Cells % (auto) 0.0, Anion Gap 3L, Glomerular Filtration Rate > 60.0, Calcium Level 9.3 CBC/BMP Laboratory Tests 02/13/21 05:54 Microbiology Microbiology 02/11/21 Gram Stain - Final, Resulted 02/11/21 Sputum Culture - Preliminary, Resulted Yeast Like Organism 02/10/21 Blood Culture - Preliminary, Resulted No Growth after 48 hours. All Specime... 02/10/21 Blood Culture - Preliminary, Resulted No Growth after 48 hours. All Specime... BRITT AMARO MD Feb 13, 2021 10:51
[2021-02-13 14:00] VITALS: BP 164/73
[2021-02-13] MEDS: methylPREDNISolone 40MG 1ML VIAL IV SCH (20:45)
[2021-02-13] MEDS: cefTRIAXone SOD 2 GM in D5W MINI-BAG PLUS 50 ML IV SCH (20:46)
[2021-02-13 22:00] VITALS: BP 148/70
[2021-02-14] MEDS: ACETAMINOPHEN TAB 650MG DOSE (2X325MG) PO PRN (00:06)
[2021-02-14] MEDS: LEVALBUTEROL 1.25 MG/0.5 ML CONCENTRATE NEB INH SCH ×4 (03:07→15:01)
[2021-02-14] MEDS: LEVOTHYROXINE 125MCG TABLET (0.125MG) PO SCH (05:43)
[2021-02-14 06:00] VITALS: BP 158/96
[2021-02-14 07:04] LABS: HEMATOCRIT 47.1 % (36.0-47.0); HEMOGLOBIN 15.3 g/dl (12.0-15.5); MEAN CORPUSCULAR HEMOGLOBIN 29.4 pg (27.0-33.0); MEAN CORPUSCULAR HGB CONC 32.5 g/dl (32.0-36.5); MEAN CORPUSCULAR VOLUME 90.6 fl (80.0-96.0); PLATELET COUNT, AUTOMATED 343 10^3/uL (150-450); WHITE BLOOD COUNT 10.5 10^3/uL (4.0-10.0)
[2021-02-14 07:23] LABS: BLOOD UREA NITROGEN 19 MG/DL (7-18); CALCIUM LEVEL 8.9 MG/DL (8.5-10.1); CARBON DIOXIDE LEVEL 38 MEQ/L (21-32); CHLORIDE LEVEL 99 MEQ/L (98-107); GLOMERULAR FILTRATION RATE > 60.0 (>51); GLUCOSE, FASTING 217 MG/DL (70-100); POTASSIUM SERUM 4.8 MEQ/L (3.5-5.1); SODIUM LEVEL 138 MEQ/L (136-145)
[2021-02-14] MEDS: ARNUITY INH SCH (07:26)
[2021-02-14] MEDS ORDERED: BACI1CAP PO (08:40)
[2021-02-14] MEDS ORDERED: PRED10TA2 PO (08:40)
[2021-02-14] MEDS ORDERED: LEVO750T13 PO (08:40)
[2021-02-14] MEDS ORDERED: LISINOPRIL *2.5 MG* TAB PO ONE (09:00)
[2021-02-14] MEDS: LEVEMIR (INSULIN DETEMIR) 1 UNITS/0.01ML SC SCH (09:17)
[2021-02-14] MEDS: HumaLOG INSULIN (NovoLOG) PER UNIT SC SCH ×2 (09:18→12:38)
[2021-02-14] MEDS: ASPIRIN ENTERIC 325 MG TAB PO SCH (09:19)
[2021-02-14] MEDS: DOXYCYCLINE HYCLATE 100 MG in D5W MINI-BAG PLUS 100 ML IV SCH ×2 (09:19→14:01)
[2021-02-14] MEDS: DULoxetine 30 MG CAP (CYMBALTA) PO SCH (09:19)
[2021-02-14] MEDS: CYANOCOBALAMIN 500 MCG TAB PO SCH (09:19)
[2021-02-14] MEDS: methylPREDNISolone 40MG 1ML VIAL IV SCH (09:19)
[2021-02-14 09:22] VITALS: BP 134/72
--- NOTE | 2021-02-14 12:25 | DSES ---
DISCHARGE SUMMARY DATE OF ADMISSION: 02/10/2021 DATE OF DISCHARGE: 02/14/2021 PRIMARY DISCHARGE DIAGNOSES: 1. Atypical pneumonia tree-in-bud appearance in the right upper, right middle and lingual lobe, community-acquired. 2. Acute chronic obstructive pulmonary disease (COPD) exacerbation. 3. Chronic hypoxic respiratory failure on 2 liters of oxygen. 4. Secondary polycythemia secondary to end-stage chronic obstructive pulmonary disease (COPD). 5. Hypothyroidism. 6. Hypertensive urgency. 7. Type 2 diabetes with steroid-induced hyperglycemia. 8. Obstructive sleep apnea. 9. Hyponatremia. DISCHARGE MEDICATIONS: - Levaquin 750 mg daily for five days - prednisone taper - Bacid one capsule with meals and at bedtime - albuterol 2.5 four times a day as needed - albuterol two puffs four times a day - aspirin 325 mg daily - Refresh both eyes daily as needed - vitamin D 125 mcg daily - duloxetine 30 mg daily - Arnuity Ellipta one puff inhaled daily - Flonase two sprays daily as needed - glipizide 5 mg daily - Mucinex 1200 mg twice a day as needed - ibuprofen 800 mg four times a day - Lantus insulin 30 units subcutaneous daily - levothyroxine 125 mcg daily - lisinopril 2.5 mg daily - Stiolto Respimat 2 puffs inhaled daily DISCHARGE INSTRUCTIONS: Follow up with exercise teacher and primary care within five days of discharge. HOSPITAL COURSE: This is a 55-year-old female admitted on 02/10/2021 with persistent cough and shortness of breath despite 10 days of cefdinir as outpatient. Patient has been having on and off cough productive of white-yellow sputum and shortness of breath since January 28, 2021. She was treated with antibiotics without any improvement. CT chest showed tree-in-bud appearance with leukocytosis 16.2, admitted with diagnosis of atypical pneumonia. CT chest showed tree-in-bud opacity, reviewed by exercise teacher, Dr. Karsten Angel, who agreed with atypical coverage. Patient was started on ceftriaxone and doxycycline. She remained afebrile, normal white count and was treated for chronic obstructive pulmonary disease (COPD) exacerbation with tapering doses of Solu-Medrol. Patient had improvement and was discharged in stable condition. PHYSICAL EXAMINATION ON DISCHARGE: VITAL SIGNS: Temperature 97.3, pulse 90, respiratory rate 20, blood pressure 134/72, 96% on 2 liters nasal cannula. GENERAL: Patient is in no distress. No use of respiratory accessory muscles. HEENT: Anicteric. No cyanosis, pallor or conversational dyspnea. Normocephalic, atraumatic. No jugular venous distention (JVD), thyromegaly or cervical lymphadenopathy. Moist mucous membranes. LUNGS: Diminished breath sounds with fine crepitations. Air entry is significantly improved. No wheezing noted. HEART: S1, S2. Sinus rhythm. No murmurs, rubs or gallops. ABDOMEN: Soft, nontender, nondistended. Positive bowel sounds. EXTREMITIES: No cyanosis, clubbing or pitting edema. LABORATORY DATA: Laboratory data, microbiology, imaging studies: Please see the chart. TIME SPEND ON DISCHARGE: 30 minutes. MTDD
[2021-02-14 18:08] LABS: ANTINUCLEAR ANTIBODIES DIRECT Negative (Negative); ASPERGILLUS FLAVUS ABY Negative (Neg:<1:1); ASPERGILLUS FUMIGATUS ABY Negative (Neg:<1:1); ASPERGILLUS GALACTOMANNAN AG 0.05 Index (0.00-0.49); ASPERGILLUS NIGER ABY Negative (Neg:<1:1); M003-IGE ASPERGILLUS fumigatus <0.10 kU/L (Class 0)
[2021-02-17 15:10] LABS: BODY FLUID CULTURE Not indicated. (.); LEGIONELLA ANTIGEN URINE Negative (Negative); ORGANISM ID Not indicated. (.); SPECIMEN SOURCE Urine (.); URINE STREP PNEUMONIAE ANTIGEN Negative (Negative)
== END 2021-02-14 15:57 | disposition home or self-care (01) | DRG 139 ==
LOC: M ED 15:07 → M ED INP 17:54 → M MSPAV 02-11 02:20
PROVIDERS: ADMIT General Practice; ATTEND General Practice
DX: J18.9 Pneumonia, unspecified organism (principal); J96.11 Chronic respiratory failure with hypoxia; E11.42 Type 2 diabetes mellitus with diabetic polyneuropathy; Z99.81 Dependence on supplemental oxygen; J44.0 Chronic obstructive pulmonary disease with (acute) lower respiratory infection; D75.1 Secondary polycythemia; E11.319 Type 2 diabetes mellitus with unspecified diabetic retinopathy without macular edema; G47.33 Obstructive sleep apnea (adult) (pediatric); G43.709 Chronic migraine without aura, not intractable, without status migrainosus; Z20.822 Contact with and (suspected) exposure to COVID-19; M79.7 Fibromyalgia; E03.9 Hypothyroidism, unspecified; Z87.891 Personal history of nicotine dependence; Z79.82 Long term (current) use of aspirin; Z79.4 Long term (current) use of insulin; Z79.899 Other long term (current) drug therapy; Z88.5 Allergy status to narcotic agent; Z88.8 Allergy status to other drugs, medicaments and biological substances; J44.1 Chronic obstructive pulmonary disease with (acute) exacerbation; I16.0 Hypertensive urgency; E87.1 Hypo-osmolality and hyponatremia; E87.5 Hyperkalemia; E11.65 Type 2 diabetes mellitus with hyperglycemia

== ENCOUNTER → 2021-03-13 | Outpatient (CLI) | payer OTHER ==
[~2021-03-13] MED LIST changes: +ARNU1INH3 INH; +BACI1CAP PO; +CYAN500T3 PO; +D3 U5000 PO; +DULO1CAP5 PO; +GLIP5TAB8 PO; +LEVO750T13 PO; +REFR0.5D8 OU; +STIO1AER INH; +SYNT125T PO
--- NOTE | 2021-03-13 14:13 | REP ---
INDICATION: COPD, DEPENDENCE ON NICOTINE/CIGARETTES/ SUPPLEMENTAL OXYGEN. COMPARISON: 02/10/2021 a portable exam TECHNIQUE: PA and lateral FINDINGS: The patchy lower lung field opacities seen on the prior examination have cleared. There are no new abnormal opacities. The pleural angles are sharp the heart is not enlarged. The osseous structures are within normal limits. IMPRESSION: There is no acute cardiopulmonary disease. <Electronically signed by George Macias > 03/13/21 [id number]
== END ==
LOC: M ADAMS 13:27
PROVIDERS: ATTEND Nurse Practitioner Family
DX: J44.9 Chronic obstructive pulmonary disease, unspecified (principal); F17.218 Nicotine dependence, cigarettes, with other nicotine-induced disorders; Z99.81 Dependence on supplemental oxygen

== ENCOUNTER → 2021-03-13 | Outpatient (REF) | payer OTHER | LOC: M LAB REF 19:19 | PROVIDERS: ATTEND Nurse Practitioner Family | DX: J44.9 Chronic obstructive pulmonary disease, unspecified (principal) ==

== ENCOUNTER → 2021-05-04 | Outpatient (CLI) | payer OTHER ==
--- NOTE | 2021-05-04 12:10 | REP ---
INDICATION: COPD. COMPARISON: CT 02/10/2021, low-dose screening CT 11/28/2020, CTA chest 11/18/2017. TECHNIQUE: Noncontrast images through the chest with coronal and sagittal reconstructions provided. FINDINGS: The lung crisostomo are well inflated. The extensive tree in bud pattern opacities in the right upper and middle lobes well as the lingula from previous study are resolved. The lingular consolidation from the previous study in the superior segment is also resolved with minimal curvilinear fibrotic or atelectatic changes in this region. Some minor bronchiectatic changes are noted without pleural thickening, pleural effusion or pleural based mass. No calcified plaques. Medial segment right middle lobe with some curvilinear fibro atelectatic change which is stable. Patchy infiltrate in the right middle lobe on the previous study is resolved. In the anterior segment right upper lobe, a small zone of ground-glass opacity unchanged from the previous study and best seen on image 50. This is about 9 mm. Heart size not grossly enlarged. There is no pericardial thickening or effusion. There is no hiatal hernia. Some coronary artery calcifications are noted. The aorta has a few calcifications but no aneurysm. No pathologic sized mediastinal or hilar adenopathy. No axillary supraclavicular mass. Bone windows show sternum, manubrium, clavicles, AC joints, visualized portions of scapulae and glenohumeral joints, humeral heads and ribs all grossly intact without acute finding. Spine shows some degenerative changes without destructive lesion or fracture. IMPRESSION: 1. The complete clearing of the tree in bud densities seen in the right and left lungs on previous study. The lingular consolidation on the previous study is also resolved with minimal linear and curvilinear fibro atelectatic change in that region. 2. Clearing of the ground-glass opacity lingula but stable small anterior segment right upper lobe ground-glass opacity. 3. Some mild bronchiectatic change 4. Hyperinflation with COPD. No new or significant finding. <Electronically signed by Chad Alcala > 05/04/21 [id number]
== END ==
LOC: M PLAIMG 10:35
PROVIDERS: ATTEND Nurse Practitioner Family
DX: J44.9 Chronic obstructive pulmonary disease, unspecified (principal); R91.8 Other nonspecific abnormal finding of lung field

== ENCOUNTER → 2021-06-03 | Outpatient (CLI) | payer OTHER ==
--- NOTE | 2021-06-03 11:16 | REP ---
INDICATION: UPPER RESPIRATORY TRACT INFECTION COMPARISON: 03/13/2021 TECHNIQUE: PA and lateral. FINDINGS: The mediastinum and cardiac silhouette are normal. The lung crisostomo are clear and without acute consolidation, effusion, or pneumothorax. The skeletal structures are intact and normal. IMPRESSION: No acute cardiopulmonary process. <Electronically signed by Christian Nogueira > 06/03/21 [id number]
== END ==
LOC: M ADAMS 10:46
PROVIDERS: ATTEND Physician Assistant
DX: R05.9 Cough, unspecified (principal)
CPT/HCPCS: 71046; U0003

== ENCOUNTER → 2021-07-30 | Outpatient (REF) | payer OTHER ==
[~2021-07-30] MED LIST changes: -CEFD1CAP8 PO; +CEFD300C41 PO; -LEVO500T3 PO; +LEVO500T4 PO
[2021-07-30 16:20] LABS: HEMATOCRIT 51.2 % (36.0-47.0); HEMOGLOBIN 16.6 g/dl (12.0-15.5); MEAN CORPUSCULAR HEMOGLOBIN 29.6 pg (27.0-33.0); MEAN CORPUSCULAR HGB CONC 32.4 g/dl (32.0-36.5); MEAN CORPUSCULAR VOLUME 91.3 fl (80.0-96.0); PLATELET COUNT, AUTOMATED 268 10^3/uL (150-450); RED BLOOD COUNT 5.61 10^6/uL (4.00-5.40); WHITE BLOOD COUNT 7.6 10^3/uL (4.0-10.0)
[2021-07-30 17:07] LABS: ALBUMIN 3.4 GM/DL (3.2-5.2); ALT/SGPT 34 U/L (12-78); BILIRUBIN,TOTAL 0.3 MG/DL (0.2-1.0); BLOOD UREA NITROGEN 12 MG/DL (7-18); CALCIUM LEVEL 9.3 MG/DL (8.5-10.1); CARBON DIOXIDE LEVEL 33 MEQ/L (21-32); CHLORIDE LEVEL 99 MEQ/L (98-107); CREATININE FOR GFR 0.66 MG/DL (0.55-1.30); FREE T4 1.72 NG/DL (0.76-1.46); GLOMERULAR FILTRATION RATE > 60.0 (>51); GLUCOSE, FASTING 266 MG/DL (70-100); POTASSIUM SERUM 4.8 MEQ/L (3.5-5.1); SODIUM LEVEL 137 MEQ/L (136-145); THYROID STIMULATING HORMONE 0.045 uIU/ML (0.358-3.740); TOTAL PROTEIN 6.8 GM/DL (6.4-8.2)
[2021-07-30 17:23] LABS: HEMOGLOBIN A1c 9.6 %
== END ==
LOC: M SFHCADAM 12:10
PROVIDERS: ATTEND Physician Assistant
DX: E03.9 Hypothyroidism, unspecified (principal); E11.40 Type 2 diabetes mellitus with diabetic neuropathy, unspecified

== ENCOUNTER → 2021-09-01 | Outpatient (CLI) | payer OTHER | LOC: M WHC 09:48 | PROVIDERS: ATTEND Specialist | DX: Z12.31 Encounter for screening mammogram for malignant neoplasm of breast (principal) ==

== ENCOUNTER → 2021-12-09 | Outpatient (REF) | payer OTHER ==
[~2021-12-09] MED LIST changes: +ALBU2.5V10 INH; -ALBU83IN INH
[2021-12-10 13:46] LABS: HEMATOCRIT 50.4 % (36.0-47.0); HEMOGLOBIN 16.3 g/dl (12.0-15.5); MEAN CORPUSCULAR HEMOGLOBIN 30.2 pg (27.0-33.0); MEAN CORPUSCULAR HGB CONC 32.3 g/dl (32.0-36.5); MEAN CORPUSCULAR VOLUME 93.3 fl (80.0-96.0); PLATELET COUNT, AUTOMATED 255 10^3/uL (150-450); WHITE BLOOD COUNT 7.8 10^3/uL (4.0-10.0)
[2021-12-10 14:10] LABS: HEMOGLOBIN A1c 9.4 %
[2021-12-10 14:43] LABS: ALBUMIN 3.6 GM/DL (3.2-5.2); ALT/SGPT 43 U/L (12-78); BILIRUBIN,TOTAL 0.4 MG/DL (0.2-1.0); BLOOD UREA NITROGEN 12 MG/DL (7-18); CALCIUM LEVEL 9.1 MG/DL (8.5-10.1); CARBON DIOXIDE LEVEL 35 MEQ/L (21-32); CHLORIDE LEVEL 97 MEQ/L (98-107); CREATININE FOR GFR 0.79 MG/DL (0.55-1.30); FREE T4 1.04 NG/DL (0.76-1.46); GLOMERULAR FILTRATION RATE > 60.0 (>51); GLUCOSE, FASTING 218 MG/DL (70-100); POTASSIUM SERUM 6.8 MEQ/L (3.5-5.1); SODIUM LEVEL 135 MEQ/L (136-145); TOTAL PROTEIN 7.1 GM/DL (6.4-8.2)
== END ==
LOC: M SFHCADAM 15:36
PROVIDERS: ATTEND Physician Assistant
DX: E11.40 Type 2 diabetes mellitus with diabetic neuropathy, unspecified (principal); I10 Essential (primary) hypertension; J01.90 Acute sinusitis, unspecified; E03.9 Hypothyroidism, unspecified

== ENCOUNTER 2021-12-10 17:16 | Emergency (ER) | payer OTHER ==
[~2021-12-10] VITALS: Ht 165.1 cm; Wt 74.6 kg
[2021-12-10 17:17] VITALS: BP 170/84
[2021-12-10 18:32] LABS: HEMATOCRIT 49.1 % (36.0-47.0); HEMOGLOBIN 16.5 g/dl (12.0-15.5); MEAN CORPUSCULAR HEMOGLOBIN 30.6 pg (27.0-33.0); MEAN CORPUSCULAR HGB CONC 33.6 g/dl (32.0-36.5); MEAN CORPUSCULAR VOLUME 91.1 fl (80.0-96.0); PLATELET COUNT, AUTOMATED 271 10^3/uL (150-450); RED BLOOD COUNT 5.39 10^6/uL (4.00-5.40); WHITE BLOOD COUNT 10.6 10^3/uL (4.0-10.0)
[2021-12-10 18:58] LABS: RSV AMPLIFICATION NEGATIVE (NEGATIVE)
[2021-12-10 18:58] LABS: CALCIUM LEVEL 9.4 MG/DL (8.5-10.1); CREATININE FOR GFR 1.03 MG/DL (0.55-1.30); GLOMERULAR FILTRATION RATE 58.6 (>51)
== END 2021-12-10 19:22 | disposition home or self-care (01) ==
LOC: M ED 17:16
DX: R79.9 Abnormal finding of blood chemistry, unspecified (principal); E11.9 Type 2 diabetes mellitus without complications; E03.9 Hypothyroidism, unspecified; Z90.89 Acquired absence of other organs; F17.200 Nicotine dependence, unspecified, uncomplicated; Z88.1 Allergy status to other antibiotic agents; Z88.8 Allergy status to other drugs, medicaments and biological substances; Z79.899 Other long term (current) drug therapy; Z79.890 Hormone replacement therapy; Z79.4 Long term (current) use of insulin

== ENCOUNTER → 2022-03-19 | Outpatient (REF) | payer OTHER ==
[~2022-03-19] MED LIST changes: +LEVO1TAB39 PO; +LEVO1TAB40 PO; -LEVO500T4 PO; -LEVO750T13 PO
[2022-03-19 13:17] LABS: HEMATOCRIT 50.3 % (36.0-47.0); HEMOGLOBIN 16.3 g/dl (12.0-15.5); MEAN CORPUSCULAR HEMOGLOBIN 31.2 pg (27.0-33.0); MEAN CORPUSCULAR HGB CONC 32.4 g/dl (32.0-36.5); MEAN CORPUSCULAR VOLUME 96.4 fl (80.0-96.0); PLATELET COUNT, AUTOMATED 351 10^3/uL (150-450); RED BLOOD COUNT 5.22 10^6/uL (4.00-5.40); WHITE BLOOD COUNT 7.6 10^3/uL (4.0-10.0)
[2022-03-19 13:44] LABS: ALBUMIN 3.4 GM/DL (3.2-5.2); ALT/SGPT 22 U/L (12-78); BILIRUBIN,TOTAL 0.5 MG/DL (0.2-1.0); BLOOD UREA NITROGEN 11 MG/DL (7-18); CALCIUM LEVEL 9.5 MG/DL (8.5-10.1); CARBON DIOXIDE LEVEL 37 MEQ/L (21-32); CHLORIDE LEVEL 98 MEQ/L (98-107); CREATININE FOR GFR 0.64 MG/DL (0.55-1.30); FREE T4 1.35 NG/DL (0.76-1.46); GLOMERULAR FILTRATION RATE > 60.0 (>51); GLUCOSE, FASTING 119 MG/DL (70-100); SODIUM LEVEL 136 MEQ/L (136-145); TOTAL PROTEIN 7.2 GM/DL (6.4-8.2)
== END ==
LOC: M SFHCADAM 08:53
PROVIDERS: ATTEND Physician Assistant
DX: E11.40 Type 2 diabetes mellitus with diabetic neuropathy, unspecified (principal); F17.211 Nicotine dependence, cigarettes, in remission; I10 Essential (primary) hypertension; E03.9 Hypothyroidism, unspecified

== ENCOUNTER → 2022-04-14 | Outpatient (REF) | payer OTHER ==
[2022-04-14 14:19] LABS: HEMATOCRIT 48.2 % (36.0-47.0); HEMOGLOBIN 15.6 g/dl (12.0-15.5); MEAN CORPUSCULAR HEMOGLOBIN 30.2 pg (27.0-33.0); MEAN CORPUSCULAR HGB CONC 32.4 g/dl (32.0-36.5); MEAN CORPUSCULAR VOLUME 93.4 fl (80.0-96.0); PLATELET COUNT, AUTOMATED 337 10^3/uL (150-450); RED BLOOD COUNT 5.16 10^6/uL (4.00-5.40); WHITE BLOOD COUNT 12.6 10^3/uL (4.0-10.0)
[2022-04-14 14:45] LABS: ATYPICAL LYMPH 9 % (0-5); LYMPHOCYTES 11 % (16-44); MONOCYTES 5 % (0-5); MYELOCYTES 1 % (0-0); NEUTROPHILS 68 % (28-66)
[2022-04-14 14:46] LABS: PLATELET ESTIMATE NORMAL (NORMAL)
[2022-04-14 14:56] LABS: ALT/SGPT 22 U/L (12-78); BILIRUBIN,TOTAL 0.2 MG/DL (0.2-1.0); BLOOD UREA NITROGEN 12 MG/DL (7-18); CALCIUM LEVEL 9.8 MG/DL (8.5-10.1); CARBON DIOXIDE LEVEL 34 MEQ/L (21-32); CHLORIDE LEVEL 98 MEQ/L (98-107); CREATININE FOR GFR 0.55 MG/DL (0.55-1.30); GLOMERULAR FILTRATION RATE > 60.0 (>51); GLUCOSE, FASTING 160 MG/DL (70-100); POTASSIUM SERUM 3.9 MEQ/L (3.5-5.1); SODIUM LEVEL 138 MEQ/L (136-145); TOTAL PROTEIN 6.9 GM/DL (6.4-8.2)
== END ==
LOC: M SFHCADAM 09:55
PROVIDERS: ATTEND Physician Assistant
DX: R00.0 Tachycardia, unspecified (principal); J44.1 Chronic obstructive pulmonary disease with (acute) exacerbation

== ENCOUNTER → 2022-04-14 | Outpatient (CLI) | payer OTHER | LOC: M ADAMS 10:19 | PROVIDERS: ATTEND Physician Assistant | DX: R00.0 Tachycardia, unspecified (principal) ==

== ENCOUNTER 2022-05-06 12:37 | Emergency (ER) | payer OTHER ==
[~2022-05-06] VITALS: Ht 165.1 cm; Wt 73.0 kg
[2022-05-06 14:26] LABS: BASO % 0.4 % (0.0-1.0); EOS # 0.1 10^3/uL (0.0-0.5); EOS % 1.2 % (0.0-3.0); HEMATOCRIT 45.1 % (36.0-47.0); HEMOGLOBIN 15.1 g/dl (12.0-15.5); LYMPH # 1.4 10^3/uL (1.5-5.0); LYMPH % 17.9 % (24.0-44.0); MEAN CORPUSCULAR HEMOGLOBIN 30.4 pg (27.0-33.0); MEAN CORPUSCULAR HGB CONC 33.5 g/dl (32.0-36.5); MEAN CORPUSCULAR VOLUME 90.7 fl (80.0-96.0); MONO # 0.6 10^3/uL (0.0-0.8); MONO % 7.9 % (2.0-8.0); NEUTROPHILS # 5.6 10^3/uL (1.5-8.5); NEUTROPHILS % 72.5 % (36.0-66.0); PLATELET COUNT, AUTOMATED 252 10^3/uL (150-450); RED BLOOD COUNT 4.97 10^6/uL (4.00-5.40); WHITE BLOOD COUNT 7.8 10^3/uL (4.0-10.0)
[2022-05-06 15:14] LABS: ALBUMIN 3.2 GM/DL (3.2-5.2); ALT/SGPT 27 U/L (12-78); BILIRUBIN,DIRECT 0.1 MG/DL (0.0-0.2); BILIRUBIN,TOTAL 0.3 MG/DL (0.2-1.0); BLOOD UREA NITROGEN 7 MG/DL (7-18); CALCIUM LEVEL 9.1 MG/DL (8.5-10.1); CARBON DIOXIDE LEVEL 35 MEQ/L (21-32); CHLORIDE LEVEL 98 MEQ/L (98-107); CREATININE FOR GFR 0.52 MG/DL (0.55-1.30); GLOMERULAR FILTRATION RATE > 60.0 (>51); GLUCOSE, FASTING 218 MG/DL (70-100); NT-PRO BNP 75 PG/ML (<125); POTASSIUM SERUM 4.3 MEQ/L (3.5-5.1); SODIUM LEVEL 138 MEQ/L (136-145); THYROXINE (T4) 10.1 UG/DL (4.5-12.0); TOTAL PROTEIN 6.6 GM/DL (6.4-8.2)
[2022-05-06 15:26] LABS: CK-MB VALUE MASS < 1.0 NG/ML (<3.6); CPK CREATINE PHOSPHOKINASE 36 U/L (26-192); MB/CK RELATIVE INDEX 2.78 (< OR =4)
[2022-05-06 15:51] LABS: INR 0.91; PROTHROMBIN TIME 12.5 SECONDS (12.5-14.5)
[2022-05-06] MEDS ORDERED: AMOX875T2 PO (16:36)
[2022-05-06] MEDS ORDERED: OXYM15SP2 (16:36)
[2022-05-06 16:58] VITALS: BP 147/74
== END 2022-05-06 17:01 | disposition home or self-care (01) ==
LOC: M ED 12:37
DX: J01.90 Acute sinusitis, unspecified (principal); E11.9 Type 2 diabetes mellitus without complications; I10 Essential (primary) hypertension; J44.9 Chronic obstructive pulmonary disease, unspecified; K21.9 Gastro-esophageal reflux disease without esophagitis; F17.200 Nicotine dependence, unspecified, uncomplicated; Z99.81 Dependence on supplemental oxygen; Z79.82 Long term (current) use of aspirin; Z79.4 Long term (current) use of insulin; Z79.84 Long term (current) use of oral hypoglycemic drugs; Z79.890 Hormone replacement therapy; Z79.899 Other long term (current) drug therapy

== ENCOUNTER → 2022-06-15 | Outpatient (REF) | payer OTHER ==
[~2022-06-15] MED LIST changes: +AMOX875T2 PO; +OXYM15SP2
[2022-06-15 14:09] LABS: BASO % 0.4 % (0.0-1.0); EOS # 0.2 10^3/uL (0.0-0.5); EOS % 3.1 % (0.0-3.0); HEMATOCRIT 45.6 % (36.0-47.0); HEMOGLOBIN 14.3 g/dl (12.0-15.5); LYMPH # 1.7 10^3/uL (1.5-5.0); LYMPH % 23.6 % (24.0-44.0); MEAN CORPUSCULAR HEMOGLOBIN 29.2 pg (27.0-33.0); MEAN CORPUSCULAR HGB CONC 31.4 g/dl (32.0-36.5); MEAN CORPUSCULAR VOLUME 93.1 fl (80.0-96.0); MONO # 0.7 10^3/uL (0.0-0.8); MONO % 9.3 % (2.0-8.0); NEUTROPHILS # 4.4 10^3/uL (1.5-8.5); PLATELET COUNT, AUTOMATED 238 10^3/uL (150-450)
[2022-06-15 14:27] LABS: HEMOGLOBIN A1c 9.7 % (4.0-6.0)
[2022-06-15 14:38] LABS: ALBUMIN 3.6 G/DL (3.2-5.2); ALKALINE PHOSPHATASE 67 U/L (46-116); ALT/SGPT 20 U/L (7.0-40); AST/SGOT 17 U/L (<34); BILIRUBIN,TOTAL 0.3 MG/DL (0.3-1.2); BLOOD UREA NITROGEN 15 MG/DL (9-23); CALCIUM LEVEL 8.9 MG/DL (8.5-10.1); CARBON DIOXIDE LEVEL 36 MMOL/L (20-31); CHLORIDE LEVEL 99 MMOL/L (98-107); CREATININE FOR GFR 0.63 MG/DL (0.55-1.30); GLOMERULAR FILTRATION RATE > 60.0 (>51); GLUCOSE, FASTING 113 MG/DL (60-100); POTASSIUM SERUM 4.7 MMOL/L (3.5-5.1); SODIUM LEVEL 141 MMOL/L (136-145); TOTAL PROTEIN 6.5 G/DL (5.7-8.2)
== END ==
LOC: M SFHCADAM 10:34
PROVIDERS: ATTEND Physician Assistant
DX: F17.211 Nicotine dependence, cigarettes, in remission (principal); E11.40 Type 2 diabetes mellitus with diabetic neuropathy, unspecified; I10 Essential (primary) hypertension; D75.1 Secondary polycythemia; D72.829 Elevated white blood cell count, unspecified; Z23 Encounter for immunization

== ENCOUNTER 2022-12-19 17:38 | Inpatient (IN) | payer MEDICARE, OTHER ==
[~2022-12-19] VITALS: Ht 165.1 cm; Wt 70.6 kg
[2022-12-19] MEDS ORDERED: ALBUTEROL SULFATE 2.5MG/0.5ML INH NEB SOLN INH ONE (18:15)
[2022-12-19] MEDS ORDERED: IPRATROPIUM 0.5MG/ALBUTEROL 2.5MG INH SOL UD 3ML (DUONEB) NEB ONE (18:15)
[2022-12-19] MEDS ORDERED: methylPREDNISolone 125MG 2ML VIAL IV ONE (18:15)
[2022-12-19 18:28] LABS: BASO # 0.1 10^3/uL (0.0-0.2); BASO % 0.6 % (0.0-1.0); EOS % 0.1 % (0.0-3.0); HEMATOCRIT 43.8 % (36.0-47.0); HEMOGLOBIN 13.9 g/dl (12.0-15.5); LYMPH # 0.8 10^3/uL (1.5-5.0); LYMPH % 9.8 % (24.0-44.0); MEAN CORPUSCULAR HEMOGLOBIN 27.6 pg (27.0-33.0); MEAN CORPUSCULAR HGB CONC 31.7 g/dl (32.0-36.5); MEAN CORPUSCULAR VOLUME 87.1 fl (80.0-96.0); MONO # 0.7 10^3/uL (0.0-0.8); MONO % 9.1 % (2.0-8.0); NEUTROPHILS # 6.2 10^3/uL (1.5-8.5); NEUTROPHILS % 79.3 % (36.0-66.0); PLATELET COUNT, AUTOMATED 443 10^3/uL (150-450); RED BLOOD COUNT 5.03 10^6/uL (4.00-5.40); WHITE BLOOD COUNT 7.9 10^3/uL (4.0-10.0)
[2022-12-19 18:45] LABS: ABG BASE EXCESS 7.1 (-2.0-2.0); ABG HCO3 32.6 MMOL/L (22.0-26.0); ABG O2 SATURATION 91.5 % (95.0-99.0); ABG PARTIAL PRESSURE CO2 49.5 mmHg (35.0-45.0); ABG PARTIAL PRESSURE O2 57.8 mmHg (75.0-100.0); ABG STANDARD HCO3 30.8 MMOL/L. (22.0-26.0); ABG TOTAL CO2 34.1 MMOL/L (22.0-29.0); ABG pH (ARTERIAL) 7.436 UNITS (7.350-7.450)
[2022-12-19 18:58] LABS: CK-MB VALUE MASS < 1.0 NG/ML (<3.6)
[2022-12-19 19:00] LABS: BLOOD UREA NITROGEN 12 MG/DL (9-23); CALCIUM LEVEL 8.9 MG/DL (8.5-10.1); CARBON DIOXIDE LEVEL 34 MMOL/L (20-31); CHLORIDE LEVEL 95 MMOL/L (98-107); CREATININE FOR GFR 0.79 MG/DL (0.55-1.30); GLOMERULAR FILTRATION RATE > 60.0 (>51); GLUCOSE, FASTING 163 MG/DL (60-100); POTASSIUM SERUM 5.1 MMOL/L (3.5-5.1); SODIUM LEVEL 136 MMOL/L (136-145)
[2022-12-19 19:02] LABS: CPK CREATINE PHOSPHOKINASE 29 U/L (34-145); MB/CK RELATIVE INDEX 3.44 (< OR =4)
[2022-12-19] MEDS ORDERED: ONDANSETRON 4MG 2ML VIAL IV ONE (19:20)
[2022-12-19 19:27] LABS: INR 0.88; PARTIAL THROMBOPLASTIN TIME 29.9 SECONDS (24.8-34.2); PROTHROMBIN TIME 12.1 SECONDS (12.5-14.5)
[2022-12-19 20:05] LABS: LIPASE 29 U/L (12-53)
[2022-12-19 20:07] LABS: ALBUMIN 3.2 G/DL (3.2-5.2); ALKALINE PHOSPHATASE 150 U/L (46-116); ALT/SGPT 17 U/L (7.0-40); AST/SGOT 17 U/L (<34); BILIRUBIN,DIRECT 0.1 MG/DL (<0.4); BILIRUBIN,TOTAL 0.3 MG/DL (0.3-1.2); CK-MB VALUE MASS < 1.0 NG/ML (<3.6); CPK CREATINE PHOSPHOKINASE 29 U/L (34-145); MB/CK RELATIVE INDEX 3.44 (< OR =4); TOTAL PROTEIN 7.2 G/DL (5.7-8.2)
[2022-12-19 20:10] LABS: THYROID STIMULATING HORMONE 3.345 uIU/ML (0.55-4.78)
[2022-12-19] MEDS ORDERED: ISOVUE-370 76% 100ML VIAL As Ordered ONE (21:18)
[2022-12-19] MEDS ORDERED: LevoFLOXacin IV 750 MG in IV 1 EA IV ONE (22:20)
[2022-12-19] MEDS ORDERED: FLUT1BLS6 INH (22:28)
[2022-12-19] MEDS ORDERED: ASPI81TA26 PO (23:11)
[2022-12-19] MEDS ORDERED: HOME MED LIST COMPLETE! XX SCH (23:15)
[2022-12-20] MEDS ORDERED: GLUCAGON INJ 1MG VIAL SC PRN (00:40)
[2022-12-20] MEDS ORDERED: DEXTROSE 50% 50ML SYRINGE IV PRN (00:40)
[2022-12-20] MEDS ORDERED: GLUCOSE 4GM CHEW TABLET PO PRN (00:40)
[2022-12-20] MEDS ORDERED: ALBUTEROL SULFATE 2.5MG/0.5ML INH NEB SOLN NEB PRN (00:40)
[2022-12-20] MEDS: amLODIPine 5 MG TAB PO SCH ×2 (01:26→08:42)
[2022-12-20] MEDS: LEVEMIR (INSULIN DETEMIR) 1 UNITS/0.01ML SC SCH ×3 (01:26→20:50)
[2022-12-20 02:00] VITALS: BP 131/69; TEMP 97; O2SAT 90
[2022-12-20] MEDS: methylPREDNISolone 40MG 1ML VIAL IV SCH ×3 (02:08→17:19)
[2022-12-20] MEDS: IPRATROPIUM 0.5MG/ALBUTEROL 2.5MG INH SOL UD 3ML (DUONEB) NEB SCH ×4 (04:14→20:00)
[2022-12-20] MEDS ORDERED: ONDANSETRON 4MG 2ML VIAL IV PRN (04:30)
[2022-12-20] MEDS: LEVOTHYROXINE 125MCG TABLET (0.125MG) PO SCH (05:42)
[2022-12-20] MEDS: HEPARIN SOD (PORCINE) 5000UNITS/ML 1ML VIAL/SYRINGE SC SCH ×3 (05:43→20:50)
[2022-12-20 06:00] VITALS: BP 126/61; TEMP 97.9; O2SAT 92
[2022-12-20 06:54] LABS: BLOOD UREA NITROGEN 17 MG/DL (9-23); CALCIUM LEVEL 8.7 MG/DL (8.5-10.1); CARBON DIOXIDE LEVEL 31 MMOL/L (20-31); CHLORIDE LEVEL 94 MMOL/L (98-107); GLOMERULAR FILTRATION RATE > 60.0 (>51); GLUCOSE, FASTING 235 MG/DL (60-100); POTASSIUM SERUM 4.8 MMOL/L (3.5-5.1); SODIUM LEVEL 135 MMOL/L (136-145)
[2022-12-20] MEDS: TIOTROPIUM INHALER/CAPSULE (SPIRIVA) INH SCH (07:18)
[2022-12-20] MEDS: ADVAIR HFA 115/21MCG INHALER INH SCH ×2 (07:19→20:00)
[2022-12-20] MEDS: INSULIN LISPRO (NovoLOG) PER UNIT SC SCH ×4 (08:40→20:49)
[2022-12-20] MEDS: ASPIRIN 81MG ENTERIC TABLET PO SCH (08:41)
[2022-12-20] MEDS: LISINOPRIL *2.5 MG* TAB PO SCH (08:42)
[2022-12-20] MEDS: DULoxetine 30MG CAPSULE (CYMBALTA) PO SCH (08:43)
[2022-12-20 14:14] VITALS: BP 142/72; TEMP 97.2; O2SAT 90
[2022-12-20] MEDS: LevoFLOXacin 750 MG TABLET PO SCH (20:50)
[2022-12-20 22:44] VITALS: BP 151/76; TEMP 97.7; O2SAT 90
[2022-12-21] MEDS: IPRATROPIUM 0.5MG/ALBUTEROL 2.5MG INH SOL UD 3ML (DUONEB) NEB SCH ×7 (02:00→23:31)
[2022-12-21] MEDS: methylPREDNISolone 40MG 1ML VIAL IV SCH ×3 (02:34→17:59)
[2022-12-21 05:34] VITALS: BP 155/74; TEMP 97.2; O2SAT 90
[2022-12-21] MEDS: LEVOTHYROXINE 125MCG TABLET (0.125MG) PO SCH (06:04)
[2022-12-21] MEDS: HEPARIN SOD (PORCINE) 5000UNITS/ML 1ML VIAL/SYRINGE SC SCH ×3 (06:04→21:38)
[2022-12-21] MEDS ORDERED: LEVEMIR (INSULIN DETEMIR) 1 UNITS/0.01ML SC ONE (07:00)
[2022-12-21] MEDS: TIOTROPIUM INHALER/CAPSULE (SPIRIVA) INH SCH (07:12)
[2022-12-21] MEDS: ADVAIR HFA 115/21MCG INHALER INH SCH ×2 (07:13→19:21)
[2022-12-21] MEDS: INSULIN LISPRO (NovoLOG) PER UNIT SC SCH ×4 (08:20→21:39)
[2022-12-21] MEDS: ASPIRIN 81MG ENTERIC TABLET PO SCH (08:20)
[2022-12-21] MEDS: amLODIPine 5 MG TAB PO SCH (08:21)
[2022-12-21] MEDS: DULoxetine 30MG CAPSULE (CYMBALTA) PO SCH (08:21)
[2022-12-21] MEDS: LISINOPRIL *2.5 MG* TAB PO SCH (08:21)
[2022-12-21 14:03] VITALS: BP 143/72; TEMP 97; O2SAT 91
[2022-12-21] MEDS ORDERED: LEVEMIR (INSULIN DETEMIR) 1 UNITS/0.01ML SC SCH (21:00)
[2022-12-21 21:28] VITALS: BP 147/83; TEMP 97.5; O2SAT 88
[2022-12-21] MEDS: ACETAMINOPHEN TAB 650MG DOSE (2X325MG) PO PRN (21:37)
[2022-12-21] MEDS: LevoFLOXacin 750 MG TABLET PO SCH (21:37)
[2022-12-21] MEDS: FLUTICASONE PROP 0.05% NASAL SPRAY 16 GM (FLONASE) NARES SCH (22:24)
[2022-12-22] MEDS: methylPREDNISolone 40MG 1ML VIAL IV SCH (02:17)
[2022-12-22] MEDS: IPRATROPIUM 0.5MG/ALBUTEROL 2.5MG INH SOL UD 3ML (DUONEB) NEB SCH ×5 (04:18→20:34)
[2022-12-22] MEDS: LEVOTHYROXINE 125MCG TABLET (0.125MG) PO SCH (06:04)
[2022-12-22] MEDS: HEPARIN SOD (PORCINE) 5000UNITS/ML 1ML VIAL/SYRINGE SC SCH ×3 (06:04→21:30)
[2022-12-22 06:05] VITALS: BP 114/74; TEMP 97.5; O2SAT 90
[2022-12-22] MEDS ORDERED: LEVEMIR (INSULIN DETEMIR) 1 UNITS/0.01ML SC ONE (07:00)
[2022-12-22 07:35] VITALS: O2SAT 94
[2022-12-22] MEDS: TIOTROPIUM INHALER/CAPSULE (SPIRIVA) INH SCH (07:35)
[2022-12-22] MEDS: ADVAIR HFA 115/21MCG INHALER INH SCH ×2 (07:35→20:34)
[2022-12-22] MEDS: methylPREDNISolone 125MG 2ML VIAL IV SCH ×3 (08:00→21:28)
[2022-12-22] MEDS: INSULIN LISPRO (NovoLOG) PER UNIT SC SCH ×4 (08:00→21:29)
[2022-12-22] MEDS: DULoxetine 30MG CAPSULE (CYMBALTA) PO SCH (08:01)
[2022-12-22] MEDS: amLODIPine 5 MG TAB PO SCH (08:01)
[2022-12-22] MEDS: ASPIRIN 81MG ENTERIC TABLET PO SCH (08:01)
[2022-12-22] MEDS: LISINOPRIL *2.5 MG* TAB PO SCH (08:01)
[2022-12-22] MEDS: FLUTICASONE PROP 0.05% NASAL SPRAY 16 GM (FLONASE) NARES SCH ×2 (08:02→21:28)
[2022-12-22] MEDS ORDERED: CETIRIZINE (ZyrTEC) 10 MG TAB PO ONE (09:45)
[2022-12-22] MEDS ORDERED: MONTELUKAST 10 MG TAB PO ONE (09:45)
[2022-12-22] MEDS: ACETAMINOPHEN TAB 650MG DOSE (2X325MG) PO PRN (10:01)
[2022-12-22 14:00] VITALS: BP 144/60; TEMP 97.9; O2SAT 95
[2022-12-22 15:46] VITALS: O2SAT 94
[2022-12-22] MEDS ORDERED: MAALOX 30 ML SUSP *UDC PO PRN (16:40)
[2022-12-22] MEDS ORDERED: OMEPRAZOLE 20MG CAP PO ONE (16:40)
[2022-12-22] MEDS ORDERED: MAALOX 30 ML SUSP *UDC PO ONE (16:40)
[2022-12-22] MEDS ORDERED: LEVEMIR (INSULIN DETEMIR) 1 UNITS/0.01ML SC SCH (21:00)
[2022-12-22 21:12] VITALS: BP 146/75; TEMP 97.5; O2SAT 89
[2022-12-22] MEDS: LevoFLOXacin 750 MG TABLET PO SCH (21:31)
[2022-12-23] MEDS: methylPREDNISolone 125MG 2ML VIAL IV SCH (02:49)
[2022-12-23] MEDS: IPRATROPIUM 0.5MG/ALBUTEROL 2.5MG INH SOL UD 3ML (DUONEB) NEB SCH ×6 (02:49→21:18)
[2022-12-23 05:29] VITALS: BP 147/73; TEMP 97.5; O2SAT 99
[2022-12-23] MEDS: LEVOTHYROXINE 125MCG TABLET (0.125MG) PO SCH (06:14)
[2022-12-23] MEDS: HEPARIN SOD (PORCINE) 5000UNITS/ML 1ML VIAL/SYRINGE SC SCH ×3 (06:15→22:42)
[2022-12-23] MEDS ORDERED: ALBU8.5H INH (06:19)
[2022-12-23] MEDS ORDERED: PRED10TA2 PO (06:19)
[2022-12-23] MEDS ORDERED: DOXY-444 PO (06:19)
[2022-12-23] MEDS ORDERED: PRED20TA PO (06:19)
[2022-12-23 06:50] LABS: HEMATOCRIT 39.7 % (36.0-47.0); HEMOGLOBIN 12.4 g/dl (12.0-15.5); MEAN CORPUSCULAR HEMOGLOBIN 27.7 pg (27.0-33.0); MEAN CORPUSCULAR HGB CONC 31.2 g/dl (32.0-36.5); MEAN CORPUSCULAR VOLUME 88.8 fl (80.0-96.0); PLATELET COUNT, AUTOMATED 577 10^3/uL (150-450); RED BLOOD COUNT 4.47 10^6/uL (4.00-5.40); WHITE BLOOD COUNT 8.6 10^3/uL (4.0-10.0)
[2022-12-23] MEDS ORDERED: LEVEMIR (INSULIN DETEMIR) 1 UNITS/0.01ML SC ONE (07:00)
[2022-12-23 07:10] LABS: BLOOD UREA NITROGEN 27 MG/DL (9-23); CALCIUM LEVEL 10.3 MG/DL (8.5-10.1); CARBON DIOXIDE LEVEL 35 MMOL/L (20-31); CHLORIDE LEVEL 93 MMOL/L (98-107); CREATININE FOR GFR 0.73 MG/DL (0.55-1.30); GLOMERULAR FILTRATION RATE > 60.0 (>51); GLUCOSE, FASTING 268 MG/DL (60-100); POTASSIUM SERUM 4.6 MMOL/L (3.5-5.1); SODIUM LEVEL 134 MMOL/L (136-145)
[2022-12-23] MEDS: TIOTROPIUM INHALER/CAPSULE (SPIRIVA) INH SCH (07:26)
[2022-12-23] MEDS: ADVAIR HFA 115/21MCG INHALER INH SCH ×2 (07:26→21:18)
[2022-12-23] MEDS: OMEPRAZOLE 20MG CAP PO SCH (08:11)
[2022-12-23] MEDS: LISINOPRIL *2.5 MG* TAB PO SCH (08:11)
[2022-12-23] MEDS: predniSONE 20 MG TAB PO SCH ×2 (08:11→17:37)
[2022-12-23] MEDS: FLUTICASONE PROP 0.05% NASAL SPRAY 16 GM (FLONASE) NARES SCH ×2 (08:11→22:42)
[2022-12-23] MEDS: ASPIRIN 81MG ENTERIC TABLET PO SCH (08:11)
[2022-12-23] MEDS: DULoxetine 30MG CAPSULE (CYMBALTA) PO SCH (08:11)
[2022-12-23] MEDS: amLODIPine 5 MG TAB PO SCH (08:12)
[2022-12-23] MEDS: MONTELUKAST 10 MG TAB PO SCH (08:12)
[2022-12-23] MEDS: CETIRIZINE (ZyrTEC) 10 MG TAB PO SCH (08:12)
[2022-12-23] MEDS: INSULIN LISPRO (NovoLOG) PER UNIT SC SCH ×4 (08:13→21:00)
[2022-12-23 09:34] LABS: HEMOGLOBIN A1c 8.5 % (4.0-6.0)
[2022-12-23] MEDS ORDERED: INSULIN LISPRO (NovoLOG) PER UNIT SC STA (12:07)
[2022-12-23 14:00] VITALS: BP 131/72; TEMP 97.2; O2SAT 96
[2022-12-23 20:24] VITALS: BP 154/62; TEMP 97.7; O2SAT 94
[2022-12-23] MEDS ORDERED: LEVEMIR (INSULIN DETEMIR) 1 UNITS/0.01ML SC SCH (21:00)
[2022-12-23] MEDS: LevoFLOXacin 750 MG TABLET PO SCH (22:41)
[2022-12-24] MEDS: IPRATROPIUM 0.5MG/ALBUTEROL 2.5MG INH SOL UD 3ML (DUONEB) NEB SCH ×2 (00:44→07:13)
[2022-12-24] MEDS: LEVOTHYROXINE 125MCG TABLET (0.125MG) PO SCH (05:40)
[2022-12-24] MEDS: HEPARIN SOD (PORCINE) 5000UNITS/ML 1ML VIAL/SYRINGE SC SCH (05:40)
[2022-12-24 05:58] VITALS: BP 159/84; TEMP 97.3; O2SAT 94
[2022-12-24] MEDS: ADVAIR HFA 115/21MCG INHALER INH SCH (07:16)
[2022-12-24] MEDS: TIOTROPIUM INHALER/CAPSULE (SPIRIVA) INH SCH (07:17)
[2022-12-24] MEDS: INSULIN LISPRO (NovoLOG) PER UNIT SC SCH (08:41)
[2022-12-24] MEDS: OMEPRAZOLE 20MG CAP PO SCH (08:42)
[2022-12-24] MEDS: MONTELUKAST 10 MG TAB PO SCH (08:42)
[2022-12-24] MEDS: ASPIRIN 81MG ENTERIC TABLET PO SCH (08:42)
[2022-12-24] MEDS: LISINOPRIL *2.5 MG* TAB PO SCH (08:43)
[2022-12-24] MEDS: DULoxetine 30MG CAPSULE (CYMBALTA) PO SCH (08:43)
[2022-12-24] MEDS: predniSONE 20 MG TAB PO SCH (08:43)
[2022-12-24 08:44] VITALS: BP 159/84
[2022-12-24] MEDS: CETIRIZINE (ZyrTEC) 10 MG TAB PO SCH (08:44)
[2022-12-24] MEDS: amLODIPine 5 MG TAB PO SCH (08:44)
[2022-12-24] MEDS: FLUTICASONE PROP 0.05% NASAL SPRAY 16 GM (FLONASE) NARES SCH (08:44)
[2022-12-24] MEDS ORDERED: cloNIDine 0.1MG TABLET PO ONE (11:10)
[2022-12-24 11:15] VITALS: BP 146/78
== END 2022-12-24 11:15 | disposition home health service (06) | DRG 190 ==
LOC: M ED 17:38 → M ED INP 12-20 00:37 → M MS5PR 12-20 01:57
PROVIDERS: ADMIT Internal Medicine; ATTEND General Practice
DX: J44.1 Chronic obstructive pulmonary disease with (acute) exacerbation (principal); J15.6 Pneumonia due to other Gram-negative bacteria; J12.2 Parainfluenza virus pneumonia; J96.11 Chronic respiratory failure with hypoxia; E11.42 Type 2 diabetes mellitus with diabetic polyneuropathy; J44.0 Chronic obstructive pulmonary disease with (acute) lower respiratory infection; E03.9 Hypothyroidism, unspecified; I10 Essential (primary) hypertension; T38.0X5A Adverse effect of glucocorticoids and synthetic analogues, initial encounter; E11.65 Type 2 diabetes mellitus with hyperglycemia; Z90.49 Acquired absence of other specified parts of digestive tract; Z79.82 Long term (current) use of aspirin; Z79.84 Long term (current) use of oral hypoglycemic drugs; Z79.4 Long term (current) use of insulin; Z79.890 Hormone replacement therapy; Z79.899 Other long term (current) drug therapy; Z88.1 Allergy status to other antibiotic agents; Z87.891 Personal history of nicotine dependence; Z88.8 Allergy status to other drugs, medicaments and biological substances; Z20.822 Contact with and (suspected) exposure to COVID-19; Z99.81 Dependence on supplemental oxygen

== ENCOUNTER → 2023-03-08 | Outpatient (CLI) | payer MEDICARE, OTHER ==
[~2023-03-08] MED LIST changes: +ALBU8.5H INH; +ASPI81TA26 PO; +DOXY-444 PO; +FLUT1BLS6 INH
== END ==
LOC: M PLAIMG 12:54
PROVIDERS: ATTEND Physician Assistant
DX: R91.8 Other nonspecific abnormal finding of lung field (principal); I25.10 Atherosclerotic heart disease of native coronary artery without angina pectoris; D35.01 Benign neoplasm of right adrenal gland; D35.02 Benign neoplasm of left adrenal gland; J98.4 Other disorders of lung

== ENCOUNTER → 2023-04-19 | Outpatient (CLI) | payer MEDICARE, OTHER ==
[~2023-04-19] MED LIST changes: -CEFD300C41 PO; +CEFD300C42 PO; +GLIP5TAB17 PO; -GLIP5TAB8 PO
== END ==
LOC: M WHC 08:52
PROVIDERS: ATTEND Physician Assistant
DX: Z12.31 Encounter for screening mammogram for malignant neoplasm of breast (principal)

== ENCOUNTER → 2023-05-27 | Outpatient (REF) | payer OTHER ==
[2023-05-27 14:18] LABS: HEMOGLOBIN 13.2 g/dl (12.0-15.5); MEAN CORPUSCULAR HEMOGLOBIN 27.6 pg (27.0-33.0); MEAN CORPUSCULAR HGB CONC 30.7 g/dl (32.0-36.5); PLATELET COUNT, AUTOMATED 312 10^3/uL (150-450); RED BLOOD COUNT 4.78 10^6/uL (4.00-5.40); WHITE BLOOD COUNT 7.4 10^3/uL (4.0-10.0)
[2023-05-27 14:41] LABS: HEMOGLOBIN A1c 6.8 % (4.0-6.0)
[2023-05-27 14:51] LABS: BLOOD UREA NITROGEN 16 MG/DL (9-23); CARBON DIOXIDE LEVEL 35 MMOL/L (20-31); CHLORIDE LEVEL 103 MMOL/L (98-107); CHOLESTEROL LEVEL 199 MG/DL (<200); CHOLESTEROL RISK RATIO 2.04 (<5); CREATININE FOR GFR 0.77 MG/DL (0.55-1.30); GLOMERULAR FILTRATION RATE > 60.0 (>45); GLUCOSE, FASTING 123 MG/DL (74-106); HDL CHOLESTEROL 97.3 MG/DL (>40); LDL CHOLESTEROL 93.1 MG/DL (<100); NON-HDL-C 101.7 MG/DL; POTASSIUM SERUM 4.9 MMOL/L (3.5-5.1); SODIUM LEVEL 143 MMOL/L (136-145); TRIGLYCERIDES LEVEL 43 MG/DL (<150)
[2023-05-27 14:54] LABS: FOLATE 18.5 NG/ML (>5.4)
[2023-05-27 14:55] LABS: VITAMIN B12 LEVEL 414 PG/ML (211-911)
== END ==
LOC: M SFHCADAM 08:05
PROVIDERS: ATTEND Physician Assistant
DX: E11.40 Type 2 diabetes mellitus with diabetic neuropathy, unspecified (principal); J44.9 Chronic obstructive pulmonary disease, unspecified

== ENCOUNTER → 2023-06-02 | Outpatient (CLI) | payer MEDICARE ==
[~2023-06-02] MED LIST changes: +CEFD1CAP9 PO; -CEFD300C42 PO
== END ==
LOC: M RAD 10:47
PROVIDERS: ATTEND Otolaryngology
DX: H92.01 Otalgia, right ear (principal)

== ENCOUNTER → 2023-08-30 | Outpatient (REF) | payer MEDICARE | LOC: M PLALAB 12:52 | PROVIDERS: ATTEND Obstetrics & Gynecology | DX: Z12.72 Encounter for screening for malignant neoplasm of vagina (principal) | CPT/HCPCS: 87624; G0123 ==

== ENCOUNTER → 2023-08-31 | Outpatient (REF) | payer MEDICARE | LOC: M SFHCADAM 09:28 | PROVIDERS: ATTEND Physician Assistant | DX: Z53.9 Procedure and treatment not carried out, unspecified reason (principal) ==

== ENCOUNTER → 2023-09-22 | Outpatient (CLI) | payer MEDICARE, OTHER ==
[~2023-09-22] MED LIST changes: +ISOVUE-370 76% 100ML VIAL As Ordered ONE
== END ==
LOC: M RAD 13:45
PROVIDERS: ATTEND Physician Assistant
DX: M54.2 Cervicalgia (principal); Z53.20 Procedure and treatment not carried out because of patient's decision for unspecified reasons

== ENCOUNTER → 2023-12-08 | Outpatient (REF) | payer MEDICARE ==
[~2023-12-08] MED LIST changes: +DOXY-440 PO; -DOXY-444 PO; -ISOVUE-370 76% 100ML VIAL As Ordered ONE
[2023-12-08 19:47] LABS: BLOOD UREA NITROGEN 20 MG/DL (9-23); CALCIUM LEVEL 9.3 MG/DL (8.3-10.6); CARBON DIOXIDE LEVEL 37 MMOL/L (20-31); CHLORIDE LEVEL 98 MMOL/L (98-107); CREATININE FOR GFR 0.88 MG/DL (0.55-1.30); GLOMERULAR FILTRATION RATE > 60.0 (>45); GLUCOSE, FASTING 172 MG/DL (74-106); POTASSIUM SERUM 5.2 MMOL/L (3.5-5.1); SODIUM LEVEL 137 MMOL/L (136-145)
== END ==
LOC: M SFHCADAM 11:44
PROVIDERS: ATTEND Physician Assistant
DX: I10 Essential (primary) hypertension (principal)

== ENCOUNTER → 2023-12-30 | Outpatient (CLI) | payer MEDICARE ==
[~2023-12-30] MED LIST changes: +ISOVUE-370 76% 100ML VIAL As Ordered ONE
== END ==
LOC: M RAD 08:13
PROVIDERS: ATTEND Physician Assistant
DX: M54.2 Cervicalgia (principal)
CPT/HCPCS: 70491; Q9967

== ENCOUNTER → 2024-02-13 | Outpatient (REF) | payer MEDICARE ==
[~2024-02-13] MED LIST changes: +AMLO1TAB24 PO; +FERR325T3 PO; +INSUDET SC; -ISOVUE-370 76% 100ML VIAL As Ordered ONE; +LISI5TAB11 PO; +PANT40TA29 PO
[2024-02-13 13:56] LABS: ALBUMIN 2.8 G/DL (3.2-5.2); ALKALINE PHOSPHATASE 62 U/L (46-116); ALT/SGPT 13 U/L (7.0-40); AST/SGOT < 8 U/L (<34); BILIRUBIN,TOTAL 0.2 MG/DL (0.3-1.2); BLOOD UREA NITROGEN 10 MG/DL (9-23); CALCIUM LEVEL 8.9 MG/DL (8.3-10.6); CARBON DIOXIDE LEVEL > 40.0 MMOL/L (20-31); CHLORIDE LEVEL 98 MMOL/L (98-107); CREATININE FOR GFR 0.64 MG/DL (0.55-1.30); FREE T4 1.23 NG/DL (0.89-1.76); GLOMERULAR FILTRATION RATE > 60.0 (>45); GLUCOSE, FASTING 199 MG/DL (74-106); POTASSIUM SERUM 5.3 MMOL/L (3.5-5.1); SODIUM LEVEL 138 MMOL/L (136-145); THYROID STIMULATING HORMONE 3.966 uIU/ML (0.55-4.78); TOTAL PROTEIN 6.5 G/DL (5.7-8.2)
[2024-02-14 06:02] LABS: Estimated Ave Glu(eAG) 8.1 mmol/L; Hemoglobin A1c 6.7 (<5.7)
== END ==
LOC: M SFHCADAM 10:14
PROVIDERS: ATTEND Physician Assistant
DX: Z00.00 Encounter for general adult medical examination without abnormal findings (principal); J44.9 Chronic obstructive pulmonary disease, unspecified; E11.40 Type 2 diabetes mellitus with diabetic neuropathy, unspecified; I10 Essential (primary) hypertension; E03.9 Hypothyroidism, unspecified; F17.211 Nicotine dependence, cigarettes, in remission

== ENCOUNTER 2024-02-14 15:29 | Inpatient (IN) | payer MEDICARE ==
[~2024-02-14] VITALS: Ht 165.1 cm; Wt 69.3 kg
[2024-02-14] VITALS (8 sets, daily range): BP systolic 140–154; BP diastolic 63–66; TEMP 97–99; O2SAT 90–97
[~2024-02-14 15:29] MED LIST changes: -AMLO1TAB24 PO; -FERR325T3 PO; -INSUDET SC; -LISI5TAB11 PO; -PANT40TA29 PO
[2024-02-14] MEDS: dexAMETHasone 20MG/5ML VIAL IV ONE (16:28)
[2024-02-14 16:30] LABS: BASO % 0.4 % (0.0-1.0); EOS # 0.1 10^3/uL (0.0-0.5); EOS % 0.8 % (0.0-3.0); HEMATOCRIT 22.1 % (36.0-47.0); LYMPH # 1.5 10^3/uL (1.5-5.0); MEAN CORPUSCULAR HEMOGLOBIN 19.3 pg (27.0-33.0); MEAN CORPUSCULAR HGB CONC 24.9 g/dl (32.0-36.5); MEAN CORPUSCULAR VOLUME 77.5 fl (80.0-96.0); MONO # 0.7 10^3/uL (0.0-0.8); MONO % 8.5 % (2.0-8.0); NEUTROPHILS # 6.3 10^3/uL (1.5-8.5); NEUTROPHILS % 73.1 % (36.0-66.0); PLATELET COUNT, AUTOMATED 412 10^3/uL (150-450); RED BLOOD COUNT 2.85 10^6/uL (4.00-5.40); WHITE BLOOD COUNT 8.6 10^3/uL (4.0-10.0)
[2024-02-14 16:31] LABS: HEMOGLOBIN 5.5 g/dl (12.0-15.5)
[2024-02-14] MEDS: IPRATROPIUM 0.5MG/ALBUTEROL 2.5MG INH SOL UD 3ML (DUONEB) NEB PRN (16:32)
[2024-02-14 17:02] LABS: ALBUMIN 2.9 G/DL (3.2-5.2); ALKALINE PHOSPHATASE 65 U/L (46-116); ALT/SGPT < 9 U/L (7.0-40); AST/SGOT < 8 U/L (<34); BILIRUBIN,DIRECT < 0.1 MG/DL (<0.4); BILIRUBIN,TOTAL 0.2 MG/DL (0.3-1.2); BLOOD UREA NITROGEN 10 MG/DL (9-23); CALCIUM LEVEL 8.6 MG/DL (8.3-10.6); CARBON DIOXIDE LEVEL > 40.0 MMOL/L (20-31); CHLORIDE LEVEL 98 MMOL/L (98-107); GLOMERULAR FILTRATION RATE > 60.0 (>45); GLUCOSE, FASTING 199 MG/DL (74-106); POTASSIUM SERUM 4.9 MMOL/L (3.5-5.1); SODIUM LEVEL 139 MMOL/L (136-145); TOTAL PROTEIN 6.7 G/DL (5.7-8.2)
[2024-02-14] MEDS: PANTOPRAZOLE SODIUM 40 MG in D5W 50 ML IV SCH (17:36)
[2024-02-14] MEDS: PANTOPRAZOLE 40MG VIAL IV ONE (17:37)
[2024-02-14] MEDS ORDERED: INSUDET SC ×2 (17:44)
[2024-02-14] MEDS ORDERED: HOME MED LIST COMPLETE! XX SCH (17:45)
[2024-02-14] MEDS ORDERED: GLUCOSE 4 GM CHEW PO PRN (17:55)
[2024-02-14] MEDS ORDERED: ACETAMINOPHEN TAB 650MG DOSE (2X325MG) PO PRN (17:55)
[2024-02-14] MEDS ORDERED: FLUTICASONE PROP 0.05% NASAL SPRAY 16 GM (FLONASE) NARES PRN (17:55)
[2024-02-14] MEDS ORDERED: ALBUTEROL 90 MCG/ACT 8GM HFA INHALER INH PRN (17:55)
[2024-02-14] MEDS ORDERED: GLUCAGON INJ 1MG VIAL SC PRN (17:55)
[2024-02-14] MEDS ORDERED: DEXTROSE 50% 50ML SYRINGE IV PRN (17:55)
[2024-02-14] MEDS ORDERED: METOCLOPRAMIDE INJ 10MG/2ML VIAL IV PRN (17:55)
[2024-02-14 18:26] LABS: IRON (FE) 9 UG/DL (50-170); PERCENT SATURATION 2.1 % (13.2-45.0); TOTAL IRON BINDING CAPACITY 422 UG/DL (250-425)
[2024-02-14 18:29] LABS: VITAMIN B12 LEVEL 507 PG/ML (211-911)
[2024-02-14] MEDS: NS 1,000 ML IV SCH (18:49)
[2024-02-14] MEDS: INSULIN LISPRO (NovoLOG) PER UNIT SC SCH ×2 (18:49→21:42)
[2024-02-14 19:38] LABS: HEMATOCRIT 22.1 % (36.0-47.0)
[2024-02-14 22:13] LABS: HEMOGLOBIN 6.8 g/dl (12.0-15.5)
[2024-02-14 22:24] LABS: VENOUS BASE EXCESS 5.3 (-2.0-2.0); VENOUS HCO3 29.9 MMOL/L (23.0-27.0); VENOUS PARTIAL PRESSURE CO2 45.1 mmHg (38.0-50.0); VENOUS PARTIAL PRESSURE O2 198.6 mmHg (30.0-50.0); VENOUS STANDARD HCO3 29.3 MMOL/L; VENOUS TOTAL CO2 31.3 MMOL/L (24.0-28.0)
[2024-02-15] VITALS (10 sets, daily range): BP systolic 123–162; BP diastolic 54–72; TEMP 96.9–98.6; O2SAT 85–99
[2024-02-15 02:42] LABS: HEMATOCRIT 31.6 % (36.0-47.0)
[2024-02-15] MEDS: LEVOTHYROXINE 125MCG TABLET (0.125MG) PO SCH (05:25)
[2024-02-15 05:38] LABS: HEMATOCRIT 28.7 % (36.0-47.0); HEMOGLOBIN 8.2 g/dl (12.0-15.5); MEAN CORPUSCULAR HEMOGLOBIN 22.8 pg (27.0-33.0); MEAN CORPUSCULAR HGB CONC 28.6 g/dl (32.0-36.5); MEAN CORPUSCULAR VOLUME 79.7 fl (80.0-96.0); PLATELET COUNT, AUTOMATED 336 10^3/uL (150-450); WHITE BLOOD COUNT 8.6 10^3/uL (4.0-10.0)
[2024-02-15 06:01] LABS: ALBUMIN 2.7 G/DL (3.2-5.2); ALKALINE PHOSPHATASE 64 U/L (46-116); ALT/SGPT 11 U/L (7.0-40); AST/SGOT 16 U/L (<34); BILIRUBIN,TOTAL 0.5 MG/DL (0.3-1.2); BLOOD UREA NITROGEN 9 MG/DL (9-23); CALCIUM LEVEL 8.2 MG/DL (8.3-10.6); CARBON DIOXIDE LEVEL 37 MMOL/L (20-31); CHLORIDE LEVEL 103 MMOL/L (98-107); CREATININE FOR GFR 0.62 MG/DL (0.55-1.30); GLOMERULAR FILTRATION RATE > 60.0 (>45); GLUCOSE, FASTING 211 MG/DL (74-106); POTASSIUM SERUM 5.1 MMOL/L (3.5-5.1); SODIUM LEVEL 140 MMOL/L (136-145); TOTAL PROTEIN 6.3 G/DL (5.7-8.2)
[2024-02-15] MEDS ORDERED: IRON SUCROSE 100MG 5ML VIAL IV SCH ×2 (09:00)
[2024-02-15] MEDS: IRON SUCROSE 300 MG in NS 250 ML OVER 90 MIN. IV ONE (09:19)
[2024-02-15] MEDS: LISINOPRIL *2.5 MG* TAB PO SCH (09:59)
[2024-02-15] MEDS: DULoxetine 30MG CAPSULE (CYMBALTA) PO SCH (09:59)
[2024-02-15] MEDS: BISACODYL 5MG TAB PO ONE (18:10)
[2024-02-15] MEDS: GOLYTELY SOLN 4000 ML BTL PO ONE (19:39)
[2024-02-15 20:59] LABS: HEMATOCRIT 31.1 % (36.0-47.0); HEMOGLOBIN 8.8 g/dl (12.0-15.5)
[2024-02-16] VITALS (14 sets, daily range): BP systolic 142–172; BP diastolic 55–72; TEMP 96.9–98.2; O2SAT 84–100
[2024-02-16 01:53] LABS: HEMATOCRIT 28.4 % (36.0-47.0)
[2024-02-16 04:03] LABS: BASO % 0.5 % (0.0-1.0); EOS # 0.1 10^3/uL (0.0-0.5); EOS % 1.7 % (0.0-3.0); HEMATOCRIT 28.2 % (36.0-47.0); HEMOGLOBIN 7.9 g/dl (12.0-15.5); LYMPH # 1.7 10^3/uL (1.5-5.0); LYMPH % 21.6 % (24.0-44.0); MEAN CORPUSCULAR HEMOGLOBIN 22.6 pg (27.0-33.0); MEAN CORPUSCULAR VOLUME 80.6 fl (80.0-96.0); MONO # 0.8 10^3/uL (0.0-0.8); MONO % 10.7 % (2.0-8.0); NEUTROPHILS % 64.7 % (36.0-66.0); PLATELET COUNT, AUTOMATED 339 10^3/uL (150-450); WHITE BLOOD COUNT 7.7 10^3/uL (4.0-10.0)
[2024-02-16 04:34] LABS: BLOOD UREA NITROGEN < 5 MG/DL (9-23); CALCIUM LEVEL 7.6 MG/DL (8.3-10.6); CARBON DIOXIDE LEVEL 36 MMOL/L (20-31); CHLORIDE LEVEL 105 MMOL/L (98-107); CREATININE FOR GFR 0.48 MG/DL (0.55-1.30); GLOMERULAR FILTRATION RATE > 60.0 (>45); GLUCOSE, FASTING 151 MG/DL (74-106); POTASSIUM SERUM 3.9 MMOL/L (3.5-5.1); SODIUM LEVEL 140 MMOL/L (136-145)
[2024-02-16] MEDS: MAGNESIUM CITRATE 300ML BTL PO ONE (05:49)
[2024-02-16] MEDS ORDERED: LIDOCAINE 2% 100MG/5ML SDV (FOR ANES.) As Ordered ONE (07:24)
[2024-02-16] MEDS: BUDESONIDE 0.5 MG/2 ML INHALATION SUSPENSION NEB SCH (08:00)
[2024-02-16] MEDS ORDERED: propofoL 200 MG/20 ML VIAL As Ordered ONE (11:08)
[2024-02-16 11:40] LABS: HEMATOCRIT 32.6 % (36.0-47.0); HEMOGLOBIN 9.3 g/dl (12.0-15.5)
[2024-02-16] MEDS: IRON SUCROSE 300 MG in NS 250 ML OVER 90 MIN. IV SCH (12:12)
[2024-02-16] MEDS: IPRATROPIUM 0.5MG/ALBUTEROL 2.5MG INH SOL UD 3ML (DUONEB) NEB ONE (12:55)
[2024-02-16] MEDS ORDERED: fentaNYL 100 MCG/2 ML INJECTION As Ordered ONE (13:08)
[2024-02-16 16:16] LABS: BASO # 0.1 10^3/uL (0.0-0.2); BASO % 0.6 % (0.0-1.0); EOS # 0.1 10^3/uL (0.0-0.5); EOS % 0.6 % (0.0-3.0); HEMATOCRIT 34.3 % (36.0-47.0); HEMOGLOBIN 9.7 g/dl (12.0-15.5); LYMPH # 1.1 10^3/uL (1.5-5.0); LYMPH % 14.5 % (24.0-44.0); MEAN CORPUSCULAR HEMOGLOBIN 23.2 pg (27.0-33.0); MEAN CORPUSCULAR HGB CONC 28.3 g/dl (32.0-36.5); MEAN CORPUSCULAR VOLUME 82.1 fl (80.0-96.0); MONO # 0.8 10^3/uL (0.0-0.8); MONO % 9.8 % (2.0-8.0); NEUTROPHILS # 5.6 10^3/uL (1.5-8.5); NEUTROPHILS % 72.1 % (36.0-66.0); PLATELET COUNT, AUTOMATED 339 10^3/uL (150-450); RED BLOOD COUNT 4.18 10^6/uL (4.00-5.40); WHITE BLOOD COUNT 7.8 10^3/uL (4.0-10.0)
[2024-02-16] MEDS: LevoFLOXacin 750 MG TABLET PO SCH (16:16)
[2024-02-16 16:53] LABS: BLOOD UREA NITROGEN < 5 MG/DL (9-23); CALCIUM LEVEL 7.8 MG/DL (8.3-10.6); CARBON DIOXIDE LEVEL 36 MMOL/L (20-31); CHLORIDE LEVEL 106 MMOL/L (98-107); CREATININE FOR GFR 0.49 MG/DL (0.55-1.30); GLOMERULAR FILTRATION RATE > 60.0 (>45); GLUCOSE, FASTING 173 MG/DL (74-106); POTASSIUM SERUM 4.3 MMOL/L (3.5-5.1); SODIUM LEVEL 142 MMOL/L (136-145)
[2024-02-16 21:50] LABS: HEMATOCRIT 30.4 % (36.0-47.0); HEMOGLOBIN 8.7 g/dl (12.0-15.5)
[2024-02-17] VITALS: BP 166/75; TEMP 97.8; O2SAT 93
[2024-02-17 04:00] VITALS: BP 144/65; TEMP 97; O2SAT 94
[2024-02-17] MEDS ORDERED: LevoFLOXacin 750 MG TABLET PO SCH (08:00)
[2024-02-17 08:03] VITALS: BP 185/77; TEMP 97.2; O2SAT 93
[2024-02-17] MEDS: PANTOPRAZOLE 40MG TAB (PROTONIX) PO SCH (08:03)
[2024-02-17] MEDS ORDERED: ACETAMINOPHEN 500 MG TAB PO PRN (09:00)
[2024-02-17 09:25] VITALS: BP 173/79
[2024-02-17] MEDS: amLODIPine 5 MG TAB PO SCH (09:25)
[2024-02-17] MEDS: LIDOCAINE 5% (LIDODERM) PATCH TD SCH (09:25)
[2024-02-17 10:09] VITALS: BP 152/70; O2SAT 100
[2024-02-17 10:15] LABS: HEMATOCRIT 32.5 % (36.0-47.0); HEMOGLOBIN 9.2 g/dl (12.0-15.5)
[2024-02-17] MEDS ORDERED: AMLO1TAB24 PO (10:52)
[2024-02-17] MEDS ORDERED: PANT40TA29 PO (10:52)
[2024-02-17] MEDS ORDERED: LISI5TAB11 PO (10:52)
[2024-02-17] MEDS ORDERED: LEVO1TAB40 PO (10:52)
[2024-02-17] MEDS ORDERED: FERR325T3 PO (10:54)
== END 2024-02-17 12:39 | disposition home or self-care (01) | DRG 384 ==
LOC: EDBD 15:29 → M ED 15:29 → M ED INP 15:30 → M ICU 21:46 → OBSVTOIN 02-16 13:55
PROVIDERS: ADMIT Hospitalist; ATTEND Hospitalist
PROC: 30233N1 Transfusion of Nonautologous Red Blood Cells into Peripheral Vein, Percutaneous Approach (ICD-10-PCS; principal; 2024-02-14)
PROC: 0DB78ZX Excision of Stomach, Pylorus, Via Natural or Artificial Opening Endoscopic, Diagnostic (ICD-10-PCS; 2024-02-16)
PROC: 0DBN8ZX Excision of Sigmoid Colon, Via Natural or Artificial Opening Endoscopic, Diagnostic (ICD-10-PCS; 2024-02-16)
PROC: 0DBL8ZX Excision of Transverse Colon, Via Natural or Artificial Opening Endoscopic, Diagnostic (ICD-10-PCS; 2024-02-16)
PROC: 0W3P8ZZ Control Bleeding in Gastrointestinal Tract, Via Natural or Artificial Opening Endoscopic (ICD-10-PCS; 2024-02-16)
DX: K25.9 Gastric ulcer, unspecified as acute or chronic, without hemorrhage or perforation (principal); D62 Acute posthemorrhagic anemia; I10 Essential (primary) hypertension; K64.9 Unspecified hemorrhoids; E11.9 Type 2 diabetes mellitus without complications; F17.200 Nicotine dependence, unspecified, uncomplicated; F41.9 Anxiety disorder, unspecified; K55.20 Angiodysplasia of colon without hemorrhage; E03.9 Hypothyroidism, unspecified; F32.A Depression, unspecified; J44.9 Chronic obstructive pulmonary disease, unspecified; R07.89 Other chest pain; G47.33 Obstructive sleep apnea (adult) (pediatric); Z99.81 Dependence on supplemental oxygen; Z79.4 Long term (current) use of insulin; Z79.890 Hormone replacement therapy; Z79.899 Other long term (current) drug therapy; Z88.8 Allergy status to other drugs, medicaments and biological substances; Z11.52 Encounter for screening for COVID-19; D12.5 Benign neoplasm of sigmoid colon; D12.3 Benign neoplasm of transverse colon; K92.2 Gastrointestinal hemorrhage, unspecified; K29.70 Gastritis, unspecified, without bleeding; B96.1 Klebsiella pneumoniae [K. pneumoniae] as the cause of diseases classified elsewhere

== ENCOUNTER → 2024-02-22 | Outpatient (REF) | payer MEDICARE ==
[~2024-02-22] MED LIST changes: +AMLO1TAB24 PO; +FERR325T3 PO; +INSUDET SC; +LISI5TAB11 PO; +PANT40TA29 PO
[2024-02-22 12:51] LABS: HEMATOCRIT 43.8 % (36.0-47.0); HEMOGLOBIN 12.2 g/dl (12.0-15.5)
== END ==
LOC: M SFHCADAM 10:50
PROVIDERS: ATTEND Family Medicine
DX: Z87.19 Personal history of other diseases of the digestive system (principal)

== ENCOUNTER → 2024-02-22 | Outpatient (CLI) | payer MEDICARE | LOC: M ADAMS 10:51 | PROVIDERS: ATTEND Family Medicine | DX: R05.9 Cough, unspecified (principal) ==

== ENCOUNTER → 2024-03-02 | Outpatient (REF) | payer MEDICARE ==
[2024-03-02 17:56] LABS: HEMOGLOBIN 10.5 g/dl (12.0-15.5); MEAN CORPUSCULAR HEMOGLOBIN 24.2 pg (27.0-33.0); MEAN CORPUSCULAR HGB CONC 27.6 g/dl (32.0-36.5); MEAN CORPUSCULAR VOLUME 87.6 fl (80.0-96.0); PLATELET COUNT, AUTOMATED 694 10^3/uL (150-450); RED BLOOD COUNT 4.34 10^6/uL (4.00-5.40); WHITE BLOOD COUNT 9.4 10^3/uL (4.0-10.0)
[2024-03-02 18:10] LABS: ALBUMIN 3.1 G/DL (3.2-5.2); ALKALINE PHOSPHATASE 74 U/L (46-116); ALT/SGPT 16 U/L (7.0-40); AST/SGOT 13 U/L (<34); BILIRUBIN,TOTAL 0.2 MG/DL (0.3-1.2); BLOOD UREA NITROGEN 17 MG/DL (9-23); CALCIUM LEVEL 9.6 MG/DL (8.3-10.6); CARBON DIOXIDE LEVEL > 40.0 MMOL/L (20-31); CHLORIDE LEVEL 92 MMOL/L (98-107); CREATININE FOR GFR 0.62 MG/DL (0.55-1.30); GLOMERULAR FILTRATION RATE > 60.0 (>45); GLUCOSE, FASTING 117 MG/DL (74-106); POTASSIUM SERUM 5.6 MMOL/L (3.5-5.1); SODIUM LEVEL 135 MMOL/L (136-145); TOTAL PROTEIN 6.9 G/DL (5.7-8.2)
== END ==
LOC: M SFHCADAM 14:58
PROVIDERS: ATTEND Physician Assistant
DX: Z87.19 Personal history of other diseases of the digestive system (principal)

== ENCOUNTER → 2024-03-09 | Outpatient (REF) | payer MEDICARE ==
[2024-03-09 14:49] LABS: BLOOD UREA NITROGEN 12 MG/DL (9-23); CALCIUM LEVEL 10.5 MG/DL (8.3-10.6); CARBON DIOXIDE LEVEL > 40.0 MMOL/L (20-31); CHLORIDE LEVEL 94 MMOL/L (98-107); CREATININE FOR GFR 0.67 MG/DL (0.55-1.30); GLOMERULAR FILTRATION RATE > 60.0 (>45); GLUCOSE, FASTING 239 MG/DL (74-106); POTASSIUM SERUM 4.9 MMOL/L (3.5-5.1); SODIUM LEVEL 139 MMOL/L (136-145)
== END ==
LOC: M SFHCADAM 10:35
PROVIDERS: ATTEND Physician Assistant
DX: E87.5 Hyperkalemia (principal); R19.7 Diarrhea, unspecified

== ENCOUNTER → 2024-03-12 | Outpatient (REF) | payer MEDICARE | LOC: M SFHCADAM 12:39 | PROVIDERS: ATTEND Physician Assistant | DX: R19.7 Diarrhea, unspecified (principal) ==

== ENCOUNTER → 2024-03-15 | Outpatient (REF) | payer MEDICARE ==
[2024-03-15 18:20] LABS: BASO % 0.4 % (0.0-1.0); EOS # 0.1 10^3/uL (0.0-0.5); EOS % 1.3 % (0.0-3.0); HEMATOCRIT 36.8 % (36.0-47.0); HEMOGLOBIN 10.2 g/dl (12.0-15.5); LYMPH # 1.7 10^3/uL (1.5-5.0); MEAN CORPUSCULAR HEMOGLOBIN 25.3 pg (27.0-33.0); MEAN CORPUSCULAR HGB CONC 27.7 g/dl (32.0-36.5); MEAN CORPUSCULAR VOLUME 91.3 fl (80.0-96.0); MONO # 0.9 10^3/uL (0.0-0.8); MONO % 8.4 % (2.0-8.0); NEUTROPHILS # 7.5 10^3/uL (1.5-8.5); NEUTROPHILS % 72.6 % (36.0-66.0); PLATELET COUNT, AUTOMATED 367 10^3/uL (150-450); RED BLOOD COUNT 4.03 10^6/uL (4.00-5.40); WHITE BLOOD COUNT 10.3 10^3/uL (4.0-10.0)
[2024-03-15 18:25] LABS: IRON (FE) 34 UG/DL (50-170); PERCENT SATURATION 11.3 % (13.2-45.0); TOTAL IRON BINDING CAPACITY 302 UG/DL (250-425)
[2024-03-15 18:30] LABS: FERRITIN 97.5 NG/ML (7.3-270.7)
[2024-03-15 18:40] LABS: BLOOD UREA NITROGEN 14 MG/DL (9-23); CALCIUM LEVEL 9.6 MG/DL (8.3-10.6); CARBON DIOXIDE LEVEL > 40.0 MMOL/L (20-31); CHLORIDE LEVEL 95 MMOL/L (98-107); CREATININE FOR GFR 0.58 MG/DL (0.55-1.30); GLOMERULAR FILTRATION RATE > 60.0 (>45); GLUCOSE, FASTING 220 MG/DL (74-106); POTASSIUM SERUM 4.5 MMOL/L (3.5-5.1); SODIUM LEVEL 139 MMOL/L (136-145)
== END ==
LOC: M SFHCADAM 12:00
PROVIDERS: ATTEND Physician Assistant
DX: N93.9 Abnormal uterine and vaginal bleeding, unspecified (principal); J44.9 Chronic obstructive pulmonary disease, unspecified; E11.40 Type 2 diabetes mellitus with diabetic neuropathy, unspecified; I10 Essential (primary) hypertension; E03.9 Hypothyroidism, unspecified; D50.0 Iron deficiency anemia secondary to blood loss (chronic); K25.0 Acute gastric ulcer with hemorrhage

== ENCOUNTER 2024-03-27 18:19 | Inpatient (IN) | payer MEDICARE ==
[~2024-03-27] VITALS: Ht 165.1 cm; Wt 63.4 kg
[2024-03-27] MEDS ORDERED: ECOT81TA5 PO (18:55)
[2024-03-27] MEDS ORDERED: FURO20TA2 PO (18:55)
[2024-03-27] MEDS ORDERED: MULT-90 PO (18:55)
[2024-03-27 19:56] LABS: BASO % 0.5 % (0.0-1.0); EOS # 0.1 10^3/uL (0.0-0.5); EOS % 0.9 % (0.0-3.0); HEMATOCRIT 32.6 % (36.0-47.0); HEMOGLOBIN 9.6 g/dl (12.0-15.5); LYMPH # 1.4 10^3/uL (1.5-5.0); LYMPH % 16.7 % (24.0-44.0); MEAN CORPUSCULAR HEMOGLOBIN 26.8 pg (27.0-33.0); MEAN CORPUSCULAR HGB CONC 29.4 g/dl (32.0-36.5); MEAN CORPUSCULAR VOLUME 91.1 fl (80.0-96.0); MONO # 0.7 10^3/uL (0.0-0.8); MONO % 7.8 % (2.0-8.0); NEUTROPHILS # 6.3 10^3/uL (1.5-8.5); NEUTROPHILS % 73.5 % (36.0-66.0); PLATELET COUNT, AUTOMATED 668 10^3/uL (150-450); RED BLOOD COUNT 3.58 10^6/uL (4.00-5.40); WHITE BLOOD COUNT 8.6 10^3/uL (4.0-10.0)
[2024-03-27] MEDS ORDERED: FERR1TAB8 PO (20:44)
[2024-03-27] MEDS ORDERED: AMLO1TAB24 PO (20:44)
[2024-03-27] MEDS ORDERED: THERTAB52 PO (20:45)
[2024-03-27] MEDS ORDERED: HOME MED LIST COMPLETE! XX SCH (20:45)
[2024-03-27] MEDS ORDERED: VITA500C22 PO (20:45)
[2024-03-27] MEDS ORDERED: PANTOPRAZOLE 40MG VIAL IV SCH (21:00)
[2024-03-27] MEDS: LEVEMIR (INSULIN DETEMIR) 1 UNITS/0.01ML SC SCH (21:00)
[2024-03-27 21:15] LABS: CK-MB VALUE MASS < 1.0 NG/ML (<3.6)
[2024-03-27 21:17] LABS: CPK CREATINE PHOSPHOKINASE 27 U/L (34-145)
[2024-03-27 21:26] LABS: ALBUMIN 2.8 G/DL (3.2-5.2); ALKALINE PHOSPHATASE 71 U/L (46-116); ALT/SGPT 9 U/L (7.0-40); AST/SGOT < 8 U/L (<34); BILIRUBIN,DIRECT < 0.1 MG/DL (<0.4); BILIRUBIN,TOTAL 0.2 MG/DL (0.3-1.2); BLOOD UREA NITROGEN 13 MG/DL (9-23); CALCIUM LEVEL 9.2 MG/DL (8.3-10.6); CARBON DIOXIDE LEVEL > 40.0 MMOL/L (20-31); CHLORIDE LEVEL 94 MMOL/L (98-107); CREATININE FOR GFR 0.66 MG/DL (0.55-1.30); GLOMERULAR FILTRATION RATE > 60.0 (>45); GLUCOSE, FASTING 328 MG/DL (74-106); POTASSIUM SERUM 4.5 MMOL/L (3.5-5.1); SODIUM LEVEL 137 MMOL/L (136-145); TOTAL PROTEIN 6.6 G/DL (5.7-8.2)
[2024-03-27] MEDS ORDERED: ISOVUE-370 76% 100ML VIAL As Ordered ONE (21:27)
[2024-03-28] VITALS (15 sets, daily range): BP systolic 132–150; BP diastolic 60–69; TEMP 97.4–97.5; O2SAT 92–100
[2024-03-28] MEDS: cefTRIAXone SOD 1 GM in D5W MINI-BAG PLUS 50 ML IV ONE (00:13)
[2024-03-28] MEDS: methylPREDNISolone 125MG 2ML VIAL IV ONE (00:13)
[2024-03-28] MEDS: PANTOPRAZOLE 40MG VIAL IV ONE (00:13)
[2024-03-28] MEDS ORDERED: ACETAMINOPHEN TAB 650MG DOSE (2X325MG) PO PRN (00:45)
[2024-03-28] MEDS ORDERED: FLUTICASONE PROP 0.05% NASAL SPRAY 16 GM (FLONASE) NARES PRN (00:45)
[2024-03-28] MEDS ORDERED: GLUCAGON INJ 1MG VIAL SC PRN (00:45)
[2024-03-28] MEDS ORDERED: ALBUTEROL SULFATE 2.5MG/0.5ML INH NEB SOLN NEB PRN (00:45)
[2024-03-28] MEDS ORDERED: MAALOX 30 ML SUSP *UDC PO PRN (00:45)
[2024-03-28] MEDS ORDERED: DEXTROSE 50% 50ML SYRINGE IV PRN (00:45)
[2024-03-28] MEDS ORDERED: GLUCOSE 4 GM CHEW PO PRN (00:45)
[2024-03-28] MEDS ORDERED: MOM 30ML SUSPENSION UDC PO PRN (00:45)
[2024-03-28] MEDS: AZITHROMYCIN INJ 500 MG, VIAL MATE ADAPTER 1 EACH in NS 250 ML IV ONE (00:58)
[2024-03-28 01:51] LABS: VENOUS BASE EXCESS 11.4 (-2.0-2.0); VENOUS HCO3 39.4 MMOL/L (23.0-27.0); VENOUS O2 SATURATION 89.1 % (60.0-80.0); VENOUS PARTIAL PRESSURE CO2 73.6 mmHg (38.0-50.0); VENOUS PARTIAL PRESSURE O2 59.6 mmHg (30.0-50.0); VENOUS PH 7.347 UNITS (7.330-7.430); VENOUS TOTAL CO2 41.7 MMOL/L (24.0-28.0)
[2024-03-28 02:17] LABS: INR 0.97; PARTIAL THROMBOPLASTIN TIME 27.8 SECONDS (24.8-34.2); PROTHROMBIN TIME 12.6 SECONDS (12.5-14.5)
[2024-03-28] MEDS: IPRATROPIUM 0.5MG/ALBUTEROL 2.5MG INH SOL UD 3ML (DUONEB) NEB SCH (02:17)
[2024-03-28] MEDS: LevoFLOXacin IV 750 MG in IV 1 EA IV SCH (02:43)
[2024-03-28 04:07] LABS: HEMATOCRIT 32.9 % (36.0-47.0); HEMOGLOBIN 9.5 g/dl (12.0-15.5)
[2024-03-28] MEDS: LEVOTHYROXINE 125MCG TABLET (0.125MG) PO SCH (05:07)
[2024-03-28] MEDS: INSULIN LISPRO (NovoLOG) PER UNIT SC SCH ×2 (07:27→20:10)
[2024-03-28] MEDS: methylPREDNISolone 125MG 2ML VIAL IV SCH (07:27)
[2024-03-28] MEDS: ADVAIR HFA 230/21MCG INHALER INH SCH (07:46)
[2024-03-28] MEDS: TIOTROPIUM INHALER/CAPSULE (SPIRIVA) INH SCH (07:46)
[2024-03-28 08:21] LABS: HEMATOCRIT 33.9 % (36.0-47.0); HEMOGLOBIN 9.9 g/dl (12.0-15.5); MEAN CORPUSCULAR HEMOGLOBIN 26.5 pg (27.0-33.0); MEAN CORPUSCULAR HGB CONC 29.2 g/dl (32.0-36.5); MEAN CORPUSCULAR VOLUME 90.6 fl (80.0-96.0); PLATELET COUNT, AUTOMATED 670 10^3/uL (150-450); RED BLOOD COUNT 3.74 10^6/uL (4.00-5.40); WHITE BLOOD COUNT 7.2 10^3/uL (4.0-10.0)
[2024-03-28] MEDS: ASCORBIC ACID 500 MG TAB PO SCH (08:58)
[2024-03-28] MEDS: LEVEMIR (INSULIN DETEMIR) 1 UNITS/0.01ML SC SCH ×2 (08:58→20:10)
[2024-03-28] MEDS: DOCUSATE SODIUM 100MG CAPSULE PO SCH (08:59)
[2024-03-28] MEDS: DULoxetine 30MG CAPSULE (CYMBALTA) PO SCH (08:59)
[2024-03-28] MEDS: amLODIPine 5 MG TAB PO SCH (08:59)
[2024-03-28] MEDS: FERROUS SULFATE 325MG TAB PO SCH (08:59)
[2024-03-28] MEDS: PANTOPRAZOLE 40MG VIAL IV SCH (08:59)
[2024-03-28] MEDS ORDERED: LEVEMIR (INSULIN DETEMIR) 1 UNITS/0.01ML SC SCH (09:00)
[2024-03-28] MEDS ORDERED: ENTER DRUG NAME HERE (PATIENT'S OWN MED) INH SCH ×2 (09:00)
[2024-03-28 13:35] LABS: ALKALINE PHOSPHATASE 74 U/L (46-116); ALT/SGPT 9 U/L (7.0-40); AST/SGOT < 8 U/L (<34); BILIRUBIN,TOTAL 0.2 MG/DL (0.3-1.2); BLOOD UREA NITROGEN 13 MG/DL (9-23); CALCIUM LEVEL 9.7 MG/DL (8.3-10.6); CARBON DIOXIDE LEVEL 39 MMOL/L (20-31); CHLORIDE LEVEL 95 MMOL/L (98-107); CREATININE FOR GFR 0.59 MG/DL (0.55-1.30); GLOMERULAR FILTRATION RATE > 60.0 (>45); GLUCOSE, FASTING 340 MG/DL (74-106); POTASSIUM SERUM 5.2 MMOL/L (3.5-5.1); SODIUM LEVEL 135 MMOL/L (136-145); TOTAL PROTEIN 7.1 G/DL (5.7-8.2)
[2024-03-28] MEDS: NICOTINE 14 MG/24 HR TRANSDERMAL TD SCH (14:24)
[2024-03-28] MEDS: AZITHROMYCIN 250MG TABLET PO SCH (20:09)
[2024-03-28] MEDS ORDERED: AZITHROMYCIN INJ 500 MG, VIAL MATE ADAPTER 1 EACH in NS 250 ML IV SCH (21:00)
[2024-03-29] VITALS (10 sets, daily range): BP systolic 124–133; BP diastolic 60; TEMP 97.6–98; O2SAT 94–98
[2024-03-29 05:56] LABS: HEMATOCRIT 31.8 % (36.0-47.0); HEMOGLOBIN 9.4 g/dl (12.0-15.5); MEAN CORPUSCULAR HEMOGLOBIN 26.1 pg (27.0-33.0); MEAN CORPUSCULAR HGB CONC 29.6 g/dl (32.0-36.5); MEAN CORPUSCULAR VOLUME 88.3 fl (80.0-96.0); PLATELET COUNT, AUTOMATED 679 10^3/uL (150-450)
[2024-03-29 06:25] LABS: PROCALCITONIN 0.08 ng/ml
[2024-03-29 06:30] LABS: ALBUMIN 2.9 G/DL (3.2-5.2); ALKALINE PHOSPHATASE 67 U/L (46-116); ALT/SGPT 10 U/L (7.0-40); AST/SGOT < 8 U/L (<34); BILIRUBIN,TOTAL 0.2 MG/DL (0.3-1.2); BLOOD UREA NITROGEN 17 MG/DL (9-23); CALCIUM LEVEL 9.9 MG/DL (8.3-10.6); CARBON DIOXIDE LEVEL > 40.0 MMOL/L (20-31); CHLORIDE LEVEL 99 MMOL/L (98-107); CREATININE FOR GFR 0.56 MG/DL (0.55-1.30); GLOMERULAR FILTRATION RATE > 60.0 (>45); GLUCOSE, FASTING 180 MG/DL (74-106); MAGNESIUM LEVEL 1.9 MG/DL (1.8-2.4); SODIUM LEVEL 140 MMOL/L (136-145); TOTAL PROTEIN 6.7 G/DL (5.7-8.2)
[2024-03-29] MEDS: PANTOPRAZOLE 40MG TAB (PROTONIX) PO SCH (08:56)
[2024-03-29] MEDS ORDERED: AZIT-12 PO (14:28)
[2024-03-29] MEDS ORDERED: PRED20TA PO (14:28)
[2024-03-29] MEDS ORDERED: COLA100C5 PO (14:28)
[2024-03-30] MEDS ORDERED: predniSONE 20 MG TAB PO SCH (09:00)
== END 2024-03-29 16:00 | disposition home or self-care (01) | DRG 189 ==
LOC: M ED 18:19 → M ED INP 03-28 00:45 → M ICU 03-28 03:24
PROVIDERS: ADMIT Student in an Organized Health Care Education/Training Program; ATTEND Internal Medicine
DX: J96.21 Acute and chronic respiratory failure with hypoxia (principal); J44.1 Chronic obstructive pulmonary disease with (acute) exacerbation; Z86.16 Personal history of COVID-19; E11.42 Type 2 diabetes mellitus with diabetic polyneuropathy; E11.319 Type 2 diabetes mellitus with unspecified diabetic retinopathy without macular edema; I10 Essential (primary) hypertension; M79.7 Fibromyalgia; E03.9 Hypothyroidism, unspecified; G47.33 Obstructive sleep apnea (adult) (pediatric); G43.909 Migraine, unspecified, not intractable, without status migrainosus; M54.2 Cervicalgia; G89.29 Other chronic pain; F32.A Depression, unspecified; E87.5 Hyperkalemia; R91.8 Other nonspecific abnormal finding of lung field; E11.65 Type 2 diabetes mellitus with hyperglycemia; D64.9 Anemia, unspecified; D75.1 Secondary polycythemia; Z99.81 Dependence on supplemental oxygen; Z79.82 Long term (current) use of aspirin; Z87.891 Personal history of nicotine dependence; Z79.890 Hormone replacement therapy; Z79.4 Long term (current) use of insulin; Z79.899 Other long term (current) drug therapy

== ENCOUNTER → 2024-04-04 | Outpatient (REF) | payer MEDICARE ==
[~2024-04-04] MED LIST changes: +AZIT-12 PO; +COLA100C5 PO; +ECOT81TA5 PO; +FERR1TAB8 PO; +FURO20TA2 PO; +MULT-90 PO; +THERTAB52 PO; +VITA500C22 PO
[2024-04-04 18:18] LABS: HEMATOCRIT 38.5 % (36.0-47.0); MEAN CORPUSCULAR HEMOGLOBIN 26.7 pg (27.0-33.0); MEAN CORPUSCULAR HGB CONC 28.6 g/dl (32.0-36.5); MEAN CORPUSCULAR VOLUME 93.4 fl (80.0-96.0); PLATELET COUNT, AUTOMATED 643 10^3/uL (150-450); RED BLOOD COUNT 4.12 10^6/uL (4.00-5.40); WHITE BLOOD COUNT 10.1 10^3/uL (4.0-10.0)
[2024-04-04 18:31] LABS: IRON (FE) 114 UG/DL (50-170)
[2024-04-04 18:32] LABS: PERCENT SATURATION 35.8 % (13.2-45.0); TOTAL IRON BINDING CAPACITY 318 UG/DL (250-425)
[2024-04-04 18:34] LABS: FERRITIN 43.2 NG/ML (7.3-270.7); FOLATE > 24.0 NG/ML (>5.4); VITAMIN B12 LEVEL 537 PG/ML (211-911)
== END ==
LOC: M SFHCADAM 14:44
PROVIDERS: ATTEND Physician Assistant
DX: D50.0 Iron deficiency anemia secondary to blood loss (chronic) (principal)

== ENCOUNTER → 2024-04-12 | Outpatient (CLI) | payer MEDICARE, MEDICAID | LOC: M RAD 13:28 | PROVIDERS: ATTEND Physician Assistant | DX: Z12.2 Encounter for screening for malignant neoplasm of respiratory organs (principal); F17.211 Nicotine dependence, cigarettes, in remission; R91.1 Solitary pulmonary nodule; E27.8 Other specified disorders of adrenal gland ==

== ENCOUNTER → 2024-06-13 | Outpatient (CLI) | payer MEDICARE | LOC: M WHC 12:03 | PROVIDERS: ATTEND Physician Assistant | DX: Z12.31 Encounter for screening mammogram for malignant neoplasm of breast (principal); Z53.9 Procedure and treatment not carried out, unspecified reason ==

== ENCOUNTER 2024-07-18 06:36 | Day surgery (SDC) | payer MEDICARE, MEDICAID ==
[~2024-07-18] VITALS: Ht 165.1 cm; Wt 68.3 kg
[2024-07-18] MEDS: OFLOXACIN 0.3 % (OCUFLOX) OPTH SOL 5ML OS ONE (06:00)
[2024-07-18] MEDS: LIDOCAINE 3.5 % 1ML OPHTH TOPICAL GEL OU ONE (06:00)
[~2024-07-18 06:36] MED LIST changes: +ACET500C10 PO; +KRIL1CAP6 PO; +PANT20TA6 PO; +PHENYLEPHRINE 10% OPHTH SOL 5ML OS PRN; +TREL1AER INH
[2024-07-18] MEDS ORDERED: MIDAZOLAM INJ 2MG/2ML VIAL As Ordered ONE (07:14)
[2024-07-18] MEDS: CYCLOPENTOLATE 1% OPHTH SOLN 2ML BTL OS SCH (08:07)
[2024-07-18] MEDS: PHENYLEPHRINE 2.5% OPHTH SOL 2ML OS SCH (08:07)
[2024-07-18] MEDS: TROPICAMIDE 1% OPHTH SOLN 15ML OS SCH (08:07)
[2024-07-18] MEDS: POVIDONE-IODINE 5% OPHTH PREP SOL 30ML As Ordered ONE (09:15)
[2024-07-18] MEDS: LIDOCAINE 1% SDV 5ML VIAL As Ordered ONE (09:21)
[2024-07-18] MEDS: BSS IRRIG/VANCO(10MG)/TOBRA(5MG)/EPINEPH(1:1000-0.5CC)500ML BAG-ORONLY As Ordered ONE (09:25)
[2024-07-18] MEDS: CEFUROXIME 1MG/0.1ML INTRACAMERAL INJ As Ordered ONE (09:25)
[2024-07-18 09:38] VITALS: BP 153/67; TEMP 97.3; O2SAT 97
== END 2024-07-18 09:48 | disposition home or self-care (01) ==
LOC: M SDC 06:36
PROVIDERS: ATTEND Ophthalmology
DX: H25.9 Unspecified age-related cataract (principal); E11.9 Type 2 diabetes mellitus without complications; G47.9 Sleep disorder, unspecified; Z88.8 Allergy status to other drugs, medicaments and biological substances; Z88.5 Allergy status to narcotic agent; Z79.899 Other long term (current) drug therapy
CPT/HCPCS: 66984; J0697; J2250; V2632

== ENCOUNTER 2024-08-08 10:11 | Day surgery (SDC) | payer MEDICARE, MEDICAID ==
[~2024-08-08] VITALS: Ht 165.1 cm; Wt 67.5 kg
[~2024-08-08 10:11] MED LIST changes: +LANTINJ4 SC; +LEVO125T4 PO; +MIDAZOLAM INJ 2MG/2ML VIAL As Ordered ONE; +PHENYLEPHRINE 10% OPHTH SOL 5ML OD PRN; -PHENYLEPHRINE 10% OPHTH SOL 5ML OS PRN
[2024-08-08] MEDS: LIDOCAINE 3.5 % 1ML OPHTH TOPICAL GEL OU ONE (11:45)
[2024-08-08] MEDS: OFLOXACIN 0.3 % (OCUFLOX) OPTH SOL 5ML OD ONE (11:45)
[2024-08-08] MEDS: PHENYLEPHRINE 2.5% OPHTH SOL 2ML OD SCH (12:10)
[2024-08-08] MEDS: TROPICAMIDE 1% OPHTH SOLN 15ML OD SCH (12:10)
[2024-08-08] MEDS: CYCLOPENTOLATE 1% OPHTH SOLN 2ML BTL OD SCH (12:10)
[2024-08-08] MEDS ORDERED: GLUCOSE 4 GM CHEW PO PRN (12:15)
[2024-08-08] MEDS ORDERED: GLUCAGON INJ 1MG VIAL SC PRN (12:15)
[2024-08-08] MEDS ORDERED: DEXTROSE 50% 50ML SYRINGE IV PRN (12:15)
[2024-08-08] MEDS: INSULIN LISPRO (NovoLOG) PER UNIT SC PRN (12:23)
[2024-08-08] MEDS ORDERED: fentaNYL 100 MCG/2 ML INJECTION As Ordered ONE (13:52)
[2024-08-08] MEDS: LIDOCAINE 1% SDV 5ML VIAL As Ordered ONE (13:54)
[2024-08-08] MEDS: CEFUROXIME 1MG/0.1ML INTRACAMERAL INJ As Ordered ONE (13:54)
[2024-08-08] MEDS: BSS IRRIG/VANCO(10MG)/TOBRA(5MG)/EPINEPH(1:1000-0.5CC)500ML BAG-ORONLY As Ordered ONE (13:57)
[2024-08-08 14:06] VITALS: BP 150/60; TEMP 97.1; O2SAT 95
== END 2024-08-08 14:50 | disposition home or self-care (01) ==
LOC: M SDC 10:11
PROVIDERS: ATTEND Ophthalmology
DX: H25.11 Age-related nuclear cataract, right eye (principal); E11.9 Type 2 diabetes mellitus without complications; R06.83 Snoring; Z88.8 Allergy status to other drugs, medicaments and biological substances; Z79.899 Other long term (current) drug therapy; Z98.42 Cataract extraction status, left eye
CPT/HCPCS: 66984; J0697; J1815; J2250; J3010; V2632

== ENCOUNTER → 2025-03-06 | Outpatient (CLI) | payer MEDICARE, MEDICAID ==
[~2025-03-06] MED LIST changes: +GLIP-318 PO; -GLIP5TAB20 PO; -MIDAZOLAM INJ 2MG/2ML VIAL As Ordered ONE; -PHENYLEPHRINE 10% OPHTH SOL 5ML OD PRN
[2025-03-06 15:13] LABS: ABG BASE EXCESS 3.2 (-2.0-2.0); ABG HCO3 30.8 MMOL/L (22.0-26.0); ABG O2 SATURATION 93.5 % (95.0-99.0); ABG PARTIAL PRESSURE O2 67.3 mmHg (75.0-100.0); ABG STANDARD HCO3 27.2 MMOL/L. (22.0-26.0); ABG TOTAL CO2 32.7 MMOL/L (23.0-31.0); ABG pH (ARTERIAL) 7.315 UNITS (7.350-7.450)
[2025-03-06 15:16] LABS: ABG PARTIAL PRESSURE CO2 61.9 mmHg (35.0-45.0)
== END ==
LOC: M LAB 14:12
PROVIDERS: ATTEND Internal Medicine Pulmonary Disease
DX: J44.9 Chronic obstructive pulmonary disease, unspecified (principal)

== ENCOUNTER → 2025-03-06 | Outpatient (CLI) | payer MEDICARE, MEDICAID ==
[2025-03-06 15:08] LABS: BASO # 0.0 10^3/uL (0.0-0.2); BASO % 0.6 % (0.0-1.0); EOS # 0.1 10^3/uL (0.0-0.5); EOS % 1.4 % (0.0-3.0); LYMPH # 1.0 10^3/uL (1.5-5.0); LYMPH % 14.3 % (24.0-44.0); MONO # 0.6 10^3/uL (0.0-0.8); MONO % 8.7 % (2.0-8.0); NEUTROPHILS # 5.4 10^3/uL (1.5-8.5); NEUTROPHILS % 74.7 % (36.0-66.0); PLATELET COUNT, AUTOMATED 365 10^3/uL (150-450)
[2025-03-06 15:16] LABS: ERYTHROCYTE SEDIMENTATION RATE 84 mm/hr (0-30)
[2025-03-06 15:42] LABS: C REACTIVE PROTEIN QUANTITATIV 1.03 MG/DL (<1.0); IRON (FE) 55 UG/DL (50-170)
[2025-03-06 15:43] LABS: ALT/SGPT 13 U/L (7.0-40); AST/SGOT 13 U/L (<34); CALCIUM LEVEL 8.9 MG/DL (8.3-10.6); CARBON DIOXIDE LEVEL 35 MMOL/L (20-31); CHLORIDE LEVEL 103 MMOL/L (98-107); CREATININE FOR GFR 0.81 MG/DL (0.55-1.30); GLOMERULAR FILTRATION RATE 82.5 (>45); POTASSIUM SERUM 4.4 MMOL/L (3.5-5.1); SODIUM LEVEL 144 MMOL/L (136-145)
[2025-03-06 15:45] LABS: PERCENT SATURATION 17.7 % (13.2-45.0)
[2025-03-06 15:46] LABS: VITAMIN B12 LEVEL 588 PG/ML (211-911)
[2025-03-06 15:48] LABS: FREE T4 1.16 NG/DL (0.89-1.76)
== END ==
LOC: M LAB 14:05
PROVIDERS: ATTEND Physician Assistant
DX: G89.29 Other chronic pain (principal); M25.511 Pain in right shoulder; M25.512 Pain in left shoulder; R51.9 Headache, unspecified; E03.9 Hypothyroidism, unspecified; J44.9 Chronic obstructive pulmonary disease, unspecified

== ENCOUNTER 2025-03-08 11:47 | Emergency (ER) | payer MEDICARE, MEDICAID ==
[~2025-03-08] VITALS: Ht 165.1 cm; Wt 73.6 kg
[2025-03-08 11:50] VITALS: TEMP 97.2; O2SAT 92
[2025-03-08] MEDS: ASPIRIN 81 MG CHEWABLE TABLET PO ONE (12:40)
[2025-03-08 12:54] LABS: BASO # 0.0 10^3/uL (0.0-0.2); BASO % 0.4 % (0.0-1.0); EOS # 0.1 10^3/uL (0.0-0.5); EOS % 1.5 % (0.0-3.0); LYMPH # 1.2 10^3/uL (1.5-5.0); LYMPH % 17.8 % (24.0-44.0); MONO # 0.5 10^3/uL (0.0-0.8); MONO % 7.9 % (2.0-8.0); NEUTROPHILS # 4.9 10^3/uL (1.5-8.5); NEUTROPHILS % 72.1 % (36.0-66.0); PLATELET COUNT, AUTOMATED 351 10^3/uL (150-450)
[2025-03-08] MEDS: IPRATROPIUM 0.5 MG/ALBUTEROL 2.5 MG INH SOL UD 3 ML NEB ONE (13:00)
[2025-03-08 13:09] LABS: ABG BASE EXCESS 4.7 (-2.0-2.0); ABG HCO3 31.2 MMOL/L (22.0-26.0); ABG O2 SATURATION 97.0 % (95.0-99.0); ABG PARTIAL PRESSURE CO2 54.4 mmHg (35.0-45.0); ABG PARTIAL PRESSURE O2 88.2 mmHg (75.0-100.0); ABG STANDARD HCO3 28.7 MMOL/L. (22.0-26.0); ABG TOTAL CO2 32.8 MMOL/L (23.0-31.0); ABG pH (ARTERIAL) 7.376 UNITS (7.350-7.450)
[2025-03-08 13:20] LABS: CK-MB VALUE MASS < 1.0 NG/ML (<3.6)
[2025-03-08 13:22] LABS: ALT/SGPT 15 U/L (7.0-40); AST/SGOT 21 U/L (<34); CALCIUM LEVEL 9.0 MG/DL (8.3-10.6); CARBON DIOXIDE LEVEL 32 MMOL/L (20-31); CHLORIDE LEVEL 106 MMOL/L (98-107); CREATININE FOR GFR 0.73 MG/DL (0.55-1.30); GLOMERULAR FILTRATION RATE > 90.0 (>45); POTASSIUM SERUM 4.8 MMOL/L (3.5-5.1); SODIUM LEVEL 144 MMOL/L (136-145)
[2025-03-08 13:33] LABS: CPK CREATINE PHOSPHOKINASE 28 U/L (34-145)
[2025-03-08] MEDS ORDERED: PRED10TA2 PO (14:02)
[2025-03-08 14:15] VITALS: BP 149/63
== END 2025-03-08 14:45 | disposition home or self-care (01) ==
LOC: M ED 11:47
DX: J44.1 Chronic obstructive pulmonary disease with (acute) exacerbation (principal); E11.9 Type 2 diabetes mellitus without complications; I10 Essential (primary) hypertension; J45.909 Unspecified asthma, uncomplicated; Z88.8 Allergy status to other drugs, medicaments and biological substances; Z79.51 Long term (current) use of inhaled steroids; Z79.4 Long term (current) use of insulin; Z79.84 Long term (current) use of oral hypoglycemic drugs; Z79.52 Long term (current) use of systemic steroids; Z79.899 Other long term (current) drug therapy
CPT/HCPCS: 36600; 71045; 80048; 80076; 82550; 82553; 82803; 83880; 84484; 85025; 87486; 87581; 87633; 87798; 93005; 93041; 94640; 94760; 96374; 99285; J2919

== ENCOUNTER → 2025-03-28 | Outpatient (CLI) | payer MEDICARE, MEDICAID | LOC: M ADAMS 15:39 | PROVIDERS: ATTEND Physician Assistant | DX: M54.2 Cervicalgia (principal) ==

== ENCOUNTER → 2025-04-01 | Outpatient (CLI) | payer MEDICARE, MEDICAID ==
[2025-04-01 13:07] LABS: ABG BASE EXCESS 1.2 (-2.0-2.0); ABG HCO3 27.3 MMOL/L (22.0-26.0); ABG O2 SATURATION 99.3 % (95.0-99.0); ABG PARTIAL PRESSURE CO2 49.3 mmHg (35.0-45.0); ABG PARTIAL PRESSURE O2 174.5 mmHg (75.0-100.0); ABG STANDARD HCO3 25.6 MMOL/L. (22.0-26.0); ABG TOTAL CO2 28.8 MMOL/L (23.0-31.0); ABG pH (ARTERIAL) 7.361 UNITS (7.350-7.450)
== END ==
LOC: M LAB 12:12
PROVIDERS: ATTEND Internal Medicine Pulmonary Disease
DX: R09.02 Hypoxemia (principal)

== ENCOUNTER → 2025-04-01 | Outpatient (CLI) | payer MEDICARE, MEDICAID ==
[2025-04-01 13:54] LABS: C REACTIVE PROTEIN QUANTITATIV 0.77 MG/DL (<1.0)
[2025-04-01 13:55] LABS: RHEUMATOID FACTOR QUANT 11.6 IU/ML (<14)
== END ==
LOC: M LAB 12:14
PROVIDERS: ATTEND Physician Assistant
DX: R70.0 Elevated erythrocyte sedimentation rate (principal); M54.2 Cervicalgia; R09.02 Hypoxemia